=== PATIENT | male | born 1965 | race Caucasian/White ===

== ENCOUNTER 2017-03-15 00:07 | Inpatient (IN) | payer MEDICAID ==
[2017-03-15] MEDS ORDERED: ONDANSETRON 4 MG/2 ML VIAL ONE (00:18)
[2017-03-15] MEDS ORDERED: NS 2,000 ML IV ONE ×2 (00:21→00:55)
--- NOTE | 2017-03-15 00:31 | CPEKG ---
Heart Rate: 73 RR Interval: 822 P-R Interval: 164 QRSD Interval: 116 QT Interval: 488 QTC Interval: 538 P Whitfield: 62 QRS Whitfield: 65 T Wave Whitfield: 65 EKG Severity - ABNORMAL ECG - EKG Impression: SINUS RHYTHM EKG Impression: NONSPECIFIC INTRAVENTRICULAR CONDUCTION DELAY Electronically Signed By: Gurdeep Willson 15-Mar-2017 06:59:07
[2017-03-15 00:34] LABS: APTT 31.4 SEC (23.0-38.0); INR 1.42 (0.83-1.16); PROTIME(PATIENT) 17.5 SEC (12.0-15.0)
[2017-03-15] MEDS ORDERED: INSULIN REGULAR HUMAN 100 UNIT, COSIGN. REQUIRED 1 EA in NS 100 ML IV ONE (00:35)
[2017-03-15 00:44] LABS: ADD DIFF? YES; ADD MORPH? NO; ADD SCAN? NO; ATYPICAL LYMPHOCYTE FLAG 10 (0-99); FRAGMENT RBC FLAG 0 (0-99); HEMATOCRIT 39.8 % (40.0-51.0); HEMOGLOBIN 14.5 g/dL (13.7-17.5); LEFT SHIFT FLG 50 (0-99); LIPEMIA HEMOLYSIS FLAG 90 (0-99); MEAN CELL HEMOGLOBIN 31.9 pg (27.9-34.1); MEAN CELL HEMOGLOBIN CONCENTR. 36.4 g/dL (32.4-36.7); MEAN CELL VOLUME 87.5 fL (81.5-99.8); PLATELET CLUMPS FLAG 10 (0-99); PLATELET COUNT 257 10^3/uL (150-400); RED BLOOD CELL COUNT 4.55 10^6/uL (4.40-6.38); RED CELL DISTRIBUTION WIDTH 12.2 % (11.5-15.2)
[2017-03-15 00:47] LABS: COLOR YELLOW; LEUKOCYTE ESTERASE,URINE NEGATIVE (NEGATIVE); NITRITE,URINE NEGATIVE (NEGATIVE)
[2017-03-15 00:55] LABS: BACTERIA TRACE /hpf (NONE SEEN); MUCUS TRACE /lpf (NONE-1+)
--- NOTE | 2017-03-15 00:56 | EDPHY ---
H & P Stated Complaint: found down Time Seen by Provider: 03/15/17 00:46 HPI/ROS: Chief Complaint: Altered mental status, found down HPI: 51-year-old male found down in his residence by roommate. Patient states that he has had "stomach flu "for the last week or 2. Seven abdominal pain is some nausea and vomiting. Per EMS report roommate came home and found him lying on the floor neck at 5 o'clock this evening. They left and came back later this evening and found to be in the same position. On EMS arrival patient was awake and maintaining his airway and answering some questions but not able to provide much history. Blood pressure 76 systolic per EMS. Patient denies medical history but is confused and unable to provide adequate information. ROS: 10 point Review of Systems is negative except as noted in the HPI. PMH: Unknown Social History: Unknown Family History: Unknown Physical Exam: Gen: Awake, confused HEENT: Nose: no rhinorrhea Eyes: PERRLA, EOMI Mouth: Extremely dry oral mucosa , dry blood around his lips, no active bleeding, a dentate Neck: Supple, no JVD Chest: nontender, lungs clear to auscultation Heart: S1, S2 normal, no murmur, bradycardic Abd: Soft, non-tender, no guarding Ext: no edema, non-tender Skin: no rash Neuro: CN II-XII intact, Sensation grossly intact, Strength 5/5 in bilateral upper and lower extremities - Medical/Surgical History Other PMH: unk - Social History Smoking Status: Unknown if ever smoked Constitutional: Initial Vital Signs Temperature (C) 31.7 C L 03/15/17 00:07 Heart Rate 47 L 03/15/17 00:07 Respiratory Rate 24 H 03/15/17 00:07 Blood Pressure 71/30 L 03/15/17 00:07 O2 Sat (%) 99 03/15/17 00:07 O2 Delivery Mode Nasal Cannula O2 (L/minute) 4 Allergies/Adverse Reactions: No Known Allergies Allergy (Unverified 03/15/17 00:19) Home Medications: Medication Instructions Recorded Unobtainable 03/15/17 Medical Decision Making Procedures: Procedure: Ultrasound guidance: Using the linear probe covered in a sterile sheath, a short axis of the vein was obtained. The vein was completely compressible and was identified as separate from the adjacent non-compressible arterial structure. Under real-time guidance, the introducer needle was observed up to the vein, and then punctured it. These images were saved on the database. Central line placement: The indication for the procedure was HH and K with profound dehydration and poor IV access. After verbal informed consent from patient; the risks were explained including bleeding, infection, and collapsed lung. Maximal sterile barrier technique was uses including cap, gown, sterile gloves, large sheet, hand washing and chlorhexidine prep. The area anesthetized with 1% lidocaine. The right internal jugular was punctured with a 19 gauge finder needle, then a wire introducer was placed, a 7 Dutch triple- lumen catheter was placed using Seldinger technique. There were no complications. Blood return low pressure, dark blood. The patient tolerated procedure well. CXR results: Good placement as interpreted by myself. Radiologist interpretation is pending. The procedure was performed by myself. Indication for the procedure was hypoxemia altered mental status. The patient was preoxygenated with 100% oxygen by face mask. The patient was sedated with etomidate, 20 mg and paralyzed with vecuronium, 100 mg. The patient was orally endotracheally intubated under direct visualization with a 8.0 ETT. Tracheal intubation was confirmed with misting on the tube; breath sounds were auscultated equally bilaterally; appropriate color change with [place] CO2 detector, capnography waveform is appropriate, oxygen saturation after procedure is 100%. Chest X-ray shows ETT in good position. The procedure was performed by myself. ED Course/Re-evaluation: 51-year-old male found down hypotensive possibly septic. Sepsis pathway initiated. Patient initially bradycardic, hypotensive. I-STAT shows blood sugar greater than 700, sodium 106 with correction is 116, hyperkalemia. Patient has very poor IV access will continue to need aggressive fluid hydration. I placed a central line. Patient's Re receiving IV fluids. He remains hypotensive in the 70s. No indication for pressors at this time given his profound dehydration he continues to need aggressive hydration. Of initiated in insulin drip at 9 U an hour. I have discussed with , hospitalist. She will admit to her service. I have also paged Nephrology given his acute kidney injury. 0105 Dr Finn is at the bedside. 0145 patient is dropping his oxygen saturations. He is now 96% on 15 liters/ minute. I have discussed with the hospitalist and we agreed that intubation is appropriate. During intubation. Did drop his blood pressure to 55 systolic. This improved with 100 mcg of stress dosed epinephrine push. Critical Care Time: I spent a total of 50 minutes of critical care time in obtaining history, performing a physical exam, bedside monitoring of interventions, collecting and interpreting tests and discussion with consultants but not including time spent performing procedures. - Data Points Laboratory Results: Laboratory Results 03/15/17 00:15 03/15/17 00:15 03/15/17 03/15/17 03/15/17 00:55 00:15 00:15 WBC RBC Hgb POC Hgb Hct POC Hct MCV MCH MCHC RDW Plt Count MPV Neut % (Auto) Lymph % (Auto) [place] % (Auto) Eos % (Auto) Baso % (Auto) Nucleat RBC Rel Count Absolute Neuts (auto) Absolute Lymphs (auto) Absolute Monos (auto) Absolute Eos (auto) Absolute Basos (auto) Absolute Nucleated RBC Immature Gran % Seg Neutrophils % Band Neutrophils % Lymphocytes % Monocytes % Metamyelocytes % Immature Gran # Absolute Seg Neuts Absolute Band Neuts Absolute Lymphocytes Absolute Monocytes Absolute Metamyelocyte RBC/WBC/PLT Morphology Platelet Estimate PT 17.5 SEC H SEC (12.0-15.0) INR 1.42 H (0.83-1.16) APTT 31.4 SEC SEC (23.0-38.0) Puncture Site NONE GIVEN Patient Temperature 31.7 DEGREES DEGREES pCO2 15 mmHg L* mmHg (34-38) pO2 93 mmHg H mmHg (65-75) Total CO2 4 mEq/L L* mEq/L (23-27) ABG pH 6.92 L* (7.35-7.45) ABG PO2/FiO2 Ratio 3100 RATIO RATIO ABG HCO3 3 mEq/L L mEq/L (22-26) ABG O2 Saturation 95 % % (92-95) ABG Base Excess -29.9 mEq/L L mEq/L (-2.5-2.5) ABG Lactic Acid 1.9 mmol/L H mmol/L (0.5-1.6) VBG Lactic Acid 2.7 mmol/L H mmol/L (0.7-2.1) O2 Concentration % 3 % % (0-100) POC Sodium Sodium POC Potassium Potassium POC Chloride Chloride Carbon Dioxide Anion Gap POC BUN BUN Creatinine POC Creatinine Estimated GFR Glucose POC Glucose Calcium Total Bilirubin Conjugated Bilirubin Unconjugated Bilirubin AST ALT Alkaline Phosphatase Total Protein Albumin Lipase Urine Color Urine Appearance Urine pH Ur Specific [place] Urine Protein Urine Ketones Urine Blood Urine Nitrate Urine Bilirubin Urine Urobilinogen Ur Leukocyte Esterase Urine RBC Urine WBC Ur Epithelial Cells Urine Bacteria Urine Mucus Urine Glucose Urine Opiates Screen Urine Barbiturates Ur Phencyclidine Scrn Ur Amphetamine Screen U Benzodiazepines Scrn Urine Cocaine Screen U Marijuana (THC) Screen Ethyl Alcohol 03/15/17 03/15/17 03/15/17 00:15 00:15 00:15 WBC 16.30 10^3/uL H 10^3/uL (3.80-9.50) RBC 4.55 10^6/uL 10^6/uL (4.40-6.38) Hgb 14.5 g/dL g/dL (13.7-17.5) POC Hgb Hct 39.8 % L % (40.0-51.0) POC Hct MCV 87.5 fL fL (81.5-99.8) MCH 31.9 pg pg (27.9-34.1) MCHC 36.4 g/dL g/dL (32.4-36.7) RDW 12.2 % % (11.5-15.2) Plt Count 257 10^3/uL 10^3/uL (150-400) MPV 11.0 fL fL (8.7-11.7) Neut % (Auto) Not Reported Lymph % (Auto) Not Reported [place] % (Auto) Not Reported Eos % (Auto) Not Reported Baso % (Auto) Not Reported Nucleat RBC Rel Count 0.0 % % (0.0-0.2) Absolute Neuts (auto) Not Reported Absolute Lymphs (auto) Not Reported Absolute Monos (auto) Not Reported Absolute Eos (auto) Not Reported Absolute Basos (auto) Not Reported Absolute Nucleated RBC 0.00 10^3/uL 10^3/uL (0-0.01) Immature Gran % Not Reported Seg Neutrophils % 56 % % Band Neutrophils % 17 % % Lymphocytes % 17 % % Monocytes % 8 % % Metamyelocytes % 2 % % Immature Gran # Not Reported Absolute Seg Neuts 9.13 10^/uL H 10^/uL (1.70-6.50) Absolute Band Neuts 2.77 10^3/uL H 10^3/uL (0.00-0.70) Absolute Lymphocytes 2.77 10^3/uL 10^3/uL (1.00-3.00) Absolute Monocytes 1.30 10^3/uL H 10^3/uL (0.30-0.80) Absolute Metamyelocyte 0.33 10^3/mL H 10^3/mL (0.00-0.00) RBC/WBC/PLT Morphology NORMAL (NORMAL) Platelet Estimate ADEQUATE (ADEQ) PT INR APTT Puncture Site Patient Temperature pCO2 pO2 Total CO2 ABG pH ABG PO2/FiO2 Ratio ABG HCO3 ABG O2 Saturation ABG Base Excess ABG Lactic Acid VBG Lactic Acid O2 Concentration % POC Sodium Sodium 109 mEq/L L* mEq/L (134-144) POC Potassium Potassium 7.0 mEq/L H* mEq/L (3.5-5.2) POC Chloride Chloride 71 mEq/L L mEq/L (97-110) Carbon Dioxide < 5 mEq/l L* mEq/l (22-31) Anion Gap TNP POC BUN BUN 78 mg/dL H mg/dL (7-23) Creatinine 4.0 mg/dL H mg/dL (0.7-1.3) POC Creatinine Estimated GFR 16 Glucose 1053 mg/dL H* mg/dL (70-100) POC Glucose Calcium 7.5 mg/dL L mg/dL (8.5-10.4) Total Bilirubin 0.4 mg/dL mg/dL (0.1-1.4) Conjugated Bilirubin 0.3 mg/dL mg/dL (0.0-0.5) Unconjugated Bilirubin 0.1 mg/dL mg/dL (0.0-1.1) AST 246 IU/L H IU/L (17-59) ALT 80 IU/L H IU/L (21-72) Alkaline Phosphatase 110 IU/L IU/L (38-126) Total Protein 5.5 g/dL L g/dL (6.3-8.2) Albumin 3.6 g/dL g/dL (3.5-5.0) Lipase 17482 IU/L H IU/L (23-300) Urine Color YELLOW Urine Appearance HAZY Urine pH 5.0 (5.0-7.5) Ur Specific [place] 1.016 (1.002-1.030) Urine Protein 1+ H (NEGATIVE) Urine Ketones 1+ H (NEGATIVE) Urine Blood 3+ H (NEGATIVE) Urine Nitrate NEGATIVE (NEGATIVE) Urine Bilirubin NEGATIVE (NEGATIVE) Urine Urobilinogen NEGATIVE EU EU (0.2-1.0) Ur Leukocyte Esterase NEGATIVE (NEGATIVE) Urine RBC 1-3 /hpf /hpf (0-3) Urine WBC 1-3 /hpf /hpf (0-3) Ur Epithelial Cells TRACE /lpf /lpf (NONE-1+) Urine Bacteria TRACE /hpf H /hpf (NONE SEEN) Urine Mucus TRACE /lpf /lpf (NONE-1+) Urine Glucose 3+ H (NEGATIVE) Urine Opiates Screen NEGATIVE (NEGATIVE) Urine Barbiturates NEGATIVE (NEGATIVE) Ur Phencyclidine Scrn NEGATIVE (NEGATIVE) Ur Amphetamine Screen NEGATIVE (NEGATIVE) U Benzodiazepines Scrn NEGATIVE (NEGATIVE) Urine Cocaine Screen NEGATIVE (NEGATIVE) U Marijuana (THC) Screen NEGATIVE (NEGATIVE) Ethyl Alcohol < 10 mg/dL mg/dL (0-10) 03/15/17 00:11 WBC RBC Hgb POC Hgb 15.0 gm/dL gm/dL (13.7-17.5) Hct POC Hct 44 % % (40-51) MCV MCH MCHC RDW Plt Count MPV Neut % (Auto) Lymph % (Auto) [place] % (Auto) Eos % (Auto) Baso % (Auto) Nucleat RBC Rel Count Absolute Neuts (auto) Absolute Lymphs (auto) Absolute Monos (auto) Absolute Eos (auto) Absolute Basos (auto) Absolute Nucleated RBC Immature Gran % Seg Neutrophils % Band Neutrophils % Lymphocytes % Monocytes % Metamyelocytes % Immature Gran # Absolute Seg Neuts Absolute Band Neuts Absolute Lymphocytes Absolute Monocytes Absolute Metamyelocyte RBC/WBC/PLT Morphology Platelet Estimate PT INR APTT Puncture Site Patient Temperature pCO2 pO2 Total CO2 ABG pH ABG PO2/FiO2 Ratio ABG HCO3 ABG O2 Saturation ABG Base Excess ABG Lactic Acid VBG Lactic Acid O2 Concentration % POC Sodium 106 mEq/L L* mEq/L (134-144) Sodium POC Potassium 6.7 mEq/L H* mEq/L (3.3-5.0) Potassium POC Chloride 79 mEq/L L mEq/L (97-110) Chloride Carbon Dioxide Anion Gap POC BUN 108 mg/dL H* mg/dL (7-23) BUN Creatinine POC Creatinine 4.4 mg/dL H mg/dL (0.7-1.3) Estimated GFR Glucose POC Glucose > 700 mg/dL H* mg/dL (70-100) Calcium Total Bilirubin Conjugated Bilirubin Unconjugated Bilirubin AST ALT Alkaline Phosphatase Total Protein Albumin Lipase Urine Color Urine Appearance Urine pH Ur Specific [place] Urine Protein Urine Ketones Urine Blood Urine Nitrate Urine Bilirubin Urine Urobilinogen Ur Leukocyte Esterase Urine RBC Urine WBC Ur Epithelial Cells Urine Bacteria Urine Mucus Urine Glucose Urine Opiates Screen Urine Barbiturates Ur Phencyclidine Scrn Ur Amphetamine Screen U Benzodiazepines Scrn Urine Cocaine Screen U Marijuana (THC) Screen Ethyl Alcohol Medications Given: Discontinued Medications Etomidate (Etomidate) 20 mg IVP ONCE ONE Stop: 03/15/17 01:48 Last Admin: 03/15/17 01:45 Dose: 20 mg Sodium Chloride (Ns) 2,000 mls @ 0 mls/hr IV ONCE ONE; Wide Open PRN Reason: Protocol Stop: 03/15/17 00:22 Last Admin: 03/15/17 00:26 Dose: 2,000 mls Insulin Human Regular 100 unit / Miscellaneous Medication 1 ea/ Sodium Chloride 101 mls @ 0 mls/hr IV EDNOW ONE; Titrate PRN Reason: Protocol Stop: 03/15/17 00:36 Last Admin: 03/15/17 00:52 Dose: 101 mls Sodium Chloride (Ns) 2,000 mls @ 0 mls/hr IV ONCE ONE; Wide Open PRN Reason: Protocol Stop: 03/15/17 00:56 Last Admin: 03/15/17 00:57 Dose: 2,000 mls Rocuronium [place] (Zemuron) 100 mg IVP EDNOW ONE Stop: 03/15/17 01:48 Last Admin: 03/15/17 01:47 Dose: 100 mg Point of Care Test Results: 03/15/17 00:11 POC Sodium 106 L* POC Potassium 6.7 H* POC Chloride 79 L POC BUN 108 H* POC Creatinine 4.4 H POC Glucose > 700 H* Departure - Departure
[2017-03-15 01:02] LABS: ALANINE AMINOTRANSFERASE 80 IU/L (21-72); ALBUMIN 3.6 g/dL (3.5-5.0); ALKALINE PHOSPHATASE 110 IU/L (38-126); ASPARTATE AMINOTRANSFERASE 246 IU/L (17-59); BILIRUBIN,TOTAL 0.4 mg/dL (0.1-1.4); BILIRUBIN-CONJUGATED 0.3 mg/dL (0.0-0.5); BILIRUBIN-UNCONJUGATED 0.1 mg/dL (0.0-1.1); CALCIUM 7.5 mg/dL (8.5-10.4); CHLORIDE 71 mEq/L (97-110); ETHANOL SERUM < 10 mg/dL (0-10); TOTAL PROTEIN 5.5 g/dL (6.3-8.2)
[2017-03-15 01:06] LABS: BASE EXCESS -29.9 mEq/L (-2.5-2.5); BICARBONATE 3 mEq/L (22-26); MEASURED OXYGEN SATURATION 95 % (92-95); PO2 93 mmHg (65-75)
[2017-03-15 01:15] LABS: PCO2 15 mmHg (34-38); TCO2 4 mEq/L (23-27)
[2017-03-15 01:16] LABS: O2 CONCENTRATIION 3 % (0-100); P/F RATIO 3100 RATIO
[2017-03-15 01:20] LABS: GLOMERULAR FILTRATION RATE 16
[2017-03-15 01:24] LABS: PLATELET ESTIMATE ADEQUATE (ADEQ)
[2017-03-15] MEDS ORDERED: EPINEPHrine 1 MG/10 ML SYR IVP ONE ×2 (01:32→02:38)
[2017-03-15 01:33] LABS: SODIUM 109 mEq/L (134-144)
[2017-03-15 01:34] LABS: CARBON DIOXIDE < 5 mEq/l (22-31)
[2017-03-15] MEDS ORDERED: ACETAMINOPHEN 650 MG SUPP PR PRN (01:34)
[2017-03-15] MEDS ORDERED: ONDANSETRON 4 MG/2 ML VIAL IVP PRN (01:34)
[2017-03-15 01:35] LABS: GLUCOSE 1053 mg/dL (70-100)
[2017-03-15] MEDS ORDERED: D5W 1,000 ML IV SCH (01:45)
[2017-03-15] MEDS ORDERED: ROCURONIUM 100 MG/10 ML VIAL IVP ONE (01:47)
[2017-03-15] MEDS ORDERED: ETOMIDATE 40 MG/20 ML INJ IVP ONE (01:47)
--- NOTE | 2017-03-15 02:00 | PDGENHP ---
History and Physical - Chief Complaint found down on floor - History of Present Illness Source - patient is able to provide a limited amount of history. He presented altered but awake and talking. majority of history obtained from discussion with ED provider and RN. HPI - Pleasant 51 yo M with reported pmhx significant for chronic low back pain who presents to the ED after patient roommate found the patient laying on the floor for several hours. Patient apparently had complained of a "stomach bug" for the last several days. He denies fevers/chills, nausea/vomiting/diarrhea, cough/rhinorrhea. Patient states he has not had anything to eat or drink for a few days and feels very dry. Patient apparently had been laying on the floor when his roommate left and was in the same position 5 hours later upon return. Roommate by report from EMS was not familiar with patient history. Patient without known pmhx of diabetes "but I thought I might have." he does not have primary care. Patient provided names of parents Truong and Ramos Jamil who live in [place], [place]. patient was able to provide number [phone] which was disconnected. additional numbers located [phone] with voice message identifying names Edward /ramos left message with ICU number and request to call back only. additional number [phone] In the ED, patient was noted to be hypothermic and hypotensive with SBP 70s. He was still awake and maintaining airway. a central line was placed and he was aggressively being fluid resuscitated. ABG significant for notable acidosis pH 6.92, HCO3 3, Na 106 corrects to 120 for BS of >700. Patient was able to verbalize desire to be a FULL COR and allow to reach out parents. O2 sats declined with need for 15 lpm via NR and it was felt patient required intubation to protect airway. Patient was amenable, SBP declined to 50s with sedation/intubation and required bolus epinephrine. History Information - Allergies/Home Medication List Allergies/Adverse Reactions: No Known Allergies Allergy (Unverified 03/15/17 00:19) Home Medications: Unobtainable 03/15/17 [Last Taken Unknown] I have personally reviewed and updated: medical history, social history, surgical history Past Medical History: limited 2/2 patient current encephalopathy. PMHx - chronic back pain. denies previous diagnosis of DM II, HTN. PSHx - patient denies. FHx - unable to obtain 2/2 confusion. SHx - denies drugs or daily etoh. pt reports last alcohol intake 10 days ago. patient does chew tobacco. COR - FULL. desires parents to act as proxy Truong/Ramos Jamil. - Social History Smoking Status: Unknown if ever smoked Tobacco Use: Chew Alcohol Use: Occasionally Drug Use: None Review of Systems Review of Systems: ROS: 10pt was reviewed & negative except for what was stated in HPI & below Physical Exam Physical Exam: Selected Entries 03/15/17 00:07 Blood Pressure Automatic Method Heart Rate 47 L Respiratory 24 H Rate O2 Sat (%) 99 Temperature (C) 31.7 C L Blood Pressure 71/30 L Mean Arterial 43 L Pressure (MAP) O2 (L/minute) 4 O2 Delivery Nasal Cannula Mode Temperature Urinary Source Catheter Temp Pulse Resp BP Pulse Ox 32.4 C L 75 24 H 87/37 L 100 03/15/17 01:39 03/15/17 01:39 03/15/17 01:39 03/15/17 01:39 03/15/17 01:39 Constitutional: no apparent distress, obese, uncomfortable Eyes: anicteric sclera, scleral injection (minimal no drainage), other ( voluntary eye movements intact. pupils equal round decreased reactivity to light bilaterally but symmetric. ) Ears, Nose, Mouth, Throat: poor dentition, dry mucous membranes Cardiovascular: regular rate and rhythym, no murmur, rub, or gallop, bradycardia , other (distant heart sounds. ), No systolic murmur, No edema Peripheral Pulses: 1+: dorsalis-pedis (R), dorsalis-pedis (L) Gastrointestinal: soft, non-tender abdomen, other (obese, NTTP. hypoactive BS.) , No tenderness Genitourinary: no bladder tenderness, benjamin in urethra Skin: warm, normal color, no rashes or abrasions Musculoskeletal: generalized weakness, other (moves all extremities. generalized weakness) Neurologic: No AAOx3 (oriented to self only. ) Psychiatric: encephalopathic, anxious, agitated Lab Data & Imaging Review 03/15/17 00:15 03/15/17 00:15 WBC 16.30 10^3/uL (3.80-9.50) H 03/15/17 00:15 RBC 4.55 10^6/uL (4.40-6.38) 03/15/17 00:15 Hgb 14.5 g/dL (13.7-17.5) 03/15/17 00:15 POC Hgb 15.0 gm/dL (13.7-17.5) 03/15/17 00:11 Hct 39.8 % (40.0-51.0) L 03/15/17 00:15 POC Hct 44 % (40-51) 03/15/17 00:11 MCV 87.5 fL (81.5-99.8) 03/15/17 00:15 MCH 31.9 pg (27.9-34.1) 03/15/17 00:15 MCHC 36.4 g/dL (32.4-36.7) 03/15/17 00:15 RDW 12.2 % (11.5-15.2) 03/15/17 00:15 Plt Count 257 10^3/uL (150-400) 03/15/17 00:15 MPV 11.0 fL (8.7-11.7) 03/15/17 00:15 Neut % (Auto) Not Reported 03/15/17 00:15 Lymph % (Auto) Not Reported 03/15/17 00:15 [place] % (Auto) Not Reported 03/15/17 00:15 Eos % (Auto) Not Reported 03/15/17 00:15 Baso % (Auto) Not Reported 03/15/17 00:15 Nucleat RBC Rel Count 0.0 % (0.0-0.2) 03/15/17 00:15 Absolute Neuts (auto) Not Reported 03/15/17 00:15 Absolute Lymphs (auto) Not Reported 03/15/17 00:15 Absolute Monos (auto) Not Reported 03/15/17 00:15 Absolute Eos (auto) Not Reported 03/15/17 00:15 Absolute Basos (auto) Not Reported 03/15/17 00:15 Absolute Nucleated RBC 0.00 10^3/uL (0-0.01) 03/15/17 00:15 Immature Gran % Not Reported 03/15/17 00:15 Seg Neutrophils % 56 % 03/15/17 00:15 Band Neutrophils % 17 % 03/15/17 00:15 Lymphocytes % 17 % 03/15/17 00:15 Monocytes % 8 % 03/15/17 00:15 Metamyelocytes % 2 % 03/15/17 00:15 Immature Gran # Not Reported 03/15/17 00:15 Absolute Seg Neuts 9.13 10^/uL (1.70-6.50) H 03/15/17 00:15 Absolute Band Neuts 2.77 10^3/uL (0.00-0.70) H 03/15/17 00:15 Absolute Lymphocytes 2.77 10^3/uL (1.00-3.00) 03/15/17 00:15 Absolute Monocytes 1.30 10^3/uL (0.30-0.80) H 03/15/17 00:15 Absolute Metamyelocyte 0.33 10^3/mL (0.00-0.00) H 03/15/17 00:15 RBC/WBC/PLT Morphology NORMAL (NORMAL) 03/15/17 00:15 Platelet Estimate ADEQUATE (ADEQ) 03/15/17 00:15 PT 17.5 SEC (12.0-15.0) H 03/15/17 00:15 INR 1.42 (0.83-1.16) H 03/15/17 00:15 APTT 31.4 SEC (23.0-38.0) 03/15/17 00:15 Puncture Site NONE GIVEN 03/15/17 00:55 Patient Temperature 31.7 DEGREES 03/15/17 00:55 pCO2 15 mmHg (34-38) L* 03/15/17 00:55 pO2 93 mmHg (65-75) H 03/15/17 00:55 Total CO2 4 mEq/L (23-27) L* 03/15/17 00:55 ABG pH 6.92 (7.35-7.45) L* 03/15/17 00:55 ABG PO2/FiO2 Ratio 3100 RATIO 03/15/17 00:55 ABG HCO3 3 mEq/L (22-26) L 03/15/17 00:55 ABG O2 Saturation 95 % (92-95) 03/15/17 00:55 ABG Base Excess -29.9 mEq/L (-2.5-2.5) L 03/15/17 00:55 ABG Lactic Acid 1.9 mmol/L (0.5-1.6) H 03/15/17 00:55 VBG Lactic Acid 2.7 mmol/L (0.7-2.1) H 03/15/17 00:15 O2 Concentration % 3 % (0-100) 03/15/17 00:55 POC Sodium 106 mEq/L (134-144) L* 03/15/17 00:11 Sodium 109 mEq/L (134-144) L* 03/15/17 00:15 POC Potassium 6.7 mEq/L (3.3-5.0) H* 03/15/17 00:11 Potassium 7.0 mEq/L (3.5-5.2) H* 03/15/17 00:15 POC Chloride 79 mEq/L (97-110) L 03/15/17 00:11 Chloride 71 mEq/L (97-110) L 03/15/17 00:15 Carbon Dioxide < 5 mEq/l (22-31) L* 03/15/17 00:15 Anion Gap TNP 03/15/17 00:15 POC BUN 108 mg/dL (7-23) H* 03/15/17 00:11 BUN 78 mg/dL (7-23) H 03/15/17 00:15 Creatinine 4.0 mg/dL (0.7-1.3) H 03/15/17 00:15 POC Creatinine 4.4 mg/dL (0.7-1.3) H 03/15/17 00:11 Estimated GFR 16 03/15/17 00:15 Glucose 1053 mg/dL (70-100) H* 03/15/17 00:15 POC Glucose > 700 mg/dL (70-100) H* 03/15/17 00:11 Calcium 7.5 mg/dL (8.5-10.4) L 03/15/17 00:15 Total Bilirubin 0.4 mg/dL (0.1-1.4) 03/15/17 00:15 Conjugated Bilirubin 0.3 mg/dL (0.0-0.5) 03/15/17 00:15 Unconjugated Bilirubin 0.1 mg/dL (0.0-1.1) 03/15/17 00:15 AST 246 IU/L (17-59) H 03/15/17 00:15 ALT 80 IU/L (21-72) H 03/15/17 00:15 Alkaline Phosphatase 110 IU/L (38-126) 03/15/17 00:15 Total Protein 5.5 g/dL (6.3-8.2) L 03/15/17 00:15 Albumin 3.6 g/dL (3.5-5.0) 03/15/17 00:15 Lipase 14292 IU/L (23-300) H 03/15/17 00:15 Urine Color YELLOW 03/15/17 00:15 Urine Appearance HAZY 03/15/17 00:15 Urine pH 5.0 (5.0-7.5) 03/15/17 00:15 Ur Specific [place] 1.016 (1.002-1.030) 03/15/17 00:15 Urine Protein 1+ (NEGATIVE) H 03/15/17 00:15 Urine Ketones 1+ (NEGATIVE) H 03/15/17 00:15 Urine Blood 3+ (NEGATIVE) H 03/15/17 00:15 Urine Nitrate NEGATIVE (NEGATIVE) 03/15/17 00:15 Urine Bilirubin NEGATIVE (NEGATIVE) 03/15/17 00:15 Urine Urobilinogen NEGATIVE EU (0.2-1.0) 03/15/17 00:15 Ur Leukocyte Esterase NEGATIVE (NEGATIVE) 03/15/17 00:15 Urine RBC 1-3 /hpf (0-3) 03/15/17 00:15 Urine WBC 1-3 /hpf (0-3) 03/15/17 00:15 Ur Epithelial Cells TRACE /lpf (NONE-1+) 03/15/17 00:15 Urine Bacteria TRACE /hpf (NONE SEEN) H 03/15/17 00:15 Urine Mucus TRACE /lpf (NONE-1+) 03/15/17 00:15 Urine Glucose 3+ (NEGATIVE) H 03/15/17 00:15 Urine Opiates Screen NEGATIVE (NEGATIVE) 03/15/17 00:15 Urine Barbiturates NEGATIVE (NEGATIVE) 03/15/17 00:15 Ur Phencyclidine Scrn NEGATIVE (NEGATIVE) 03/15/17 00:15 Ur Amphetamine Screen NEGATIVE (NEGATIVE) 03/15/17 00:15 U Benzodiazepines Scrn NEGATIVE (NEGATIVE) 03/15/17 00:15 Urine Cocaine Screen NEGATIVE (NEGATIVE) 03/15/17 00:15 U Marijuana (THC) Screen NEGATIVE (NEGATIVE) 03/15/17 00:15 Ethyl Alcohol < 10 mg/dL (0-10) 03/15/17 00:15 Imaging Review: CXR reviewed myself, report pending - Visualized and Interpreted Chest x-ray results: Yes Visualized and Interpreted EKG results: Yes EKG additional interpertation: NSR 70s. IVCD. no acute ST changes. QT 488 Assessment & Plan Assessment: 51 yo M with no significant pmhx who presents to the ED found down and confused at home with complaints of feeing unwell for the last several days. 1. HHS - patient without previous diagnosis of DM II. BS >1000 and started on insulin gtt. aggressive IVF hydration. pt received just under 5 liters before transfer to ICU. q1 hr BS. serial BMPs q2 hours. dark output from NGT and elevated lipase >15K. will check abdominal US. 2. shock - hypovolemic, less likely septic without pt c/o fever/chills/cough/ diarrhea/dysuria or other symptoms. will check CVP on unit s/p 5 liters. patient is acidotic, hypothermic. bicarb bolus vs gtt if no improvement in BPs. levophed if CVP up to 8 or greater. 3. acute hypoxic respiratory failure - patient with increasing hypoxia and respiratory distress despite NR. Patient intubated in the ED. 4. hypothermia in setting of severe acidosis. temperature slowly improving. continue with bear hugger for thermoregulation. correction as noted above. 5. SIRS - pt with criteria of leukocytosis, encephalopathy, hypotension, hypothermia. no evidence of source at this time with unremarkable UA, CXR. pt denies any GI sx. output on NGT dark brown abdomen obese but soft and without TTP. consider further imaging once stabilized. blood cultures pending. lactate elevated but likely in setting of severe dehydration. serial lactates. hold off antibiotics at this time. 6. hyponatremia - corrects to 120 for BS. will monitor with q2 hour bmps. Patient requires aggressive IVF hydration. concern that patient symptoms are not acute so unsure of chronicity of hyponatremia. Discussed with nephrology from the ED. amenable to a corrected sodium to 128-130. will need urine/serum osmol once patient urine output improves. 7. hyperkalemia - serial BMPs. anticipate improvement with insulin gtt and IVF. 8. arf - likely pre-renal in setting of hypovolemia and shock. continue with IVF. nephrology consulted. no acute need for dialysis at this time. 9. lactic acidosis - serial lactates. IVF as above. 10. hypochloridemia - in setting of hyponatremia, dehydration. serial BMPs ordered. 11. hypocalcemia - calcium chloride x 1. serial bmps. 12. transaminitis - likely 2/2 shock liver in setting of severe hypotension. bilirubin WNL. abdominal US ordered as above. Patient denied any daily etoh intake or abuse. alcohol level negative. 13. dehydration - IVF as above. 14. obesity 15. tobacco dependence - pt chews. FEN - s/p 5 liters IVF. continue NS 150 mls/hr. electrolytes as above. NPO. NGT in place. PPx - SCDs. lovenox. COR - FULL. patient desires father Truong Jamil to act as proxy if needed. see HPI for contact numbers. Dispo - Admit to Inpatient status. Patient is critically ill, intubated and in shock. He requires ICU level care. Anticipate > 2 midnight stay. Consults - nephrology call from ED, pulm crit care.
[2017-03-15] MEDS ORDERED: SODIUM BICARBONATE 50 MEQ/50 ML SYR IVP ONE ×2 (02:31→04:38)
[2017-03-15] MEDS ORDERED: SODIUM BICARBONATE 50 MEQ/50 ML SYR ONE ×5 (02:32→16:20)
[2017-03-15] MEDS ORDERED: NOREPINEPHRINE/NS 4 MG/500 ML BAG IV ONE (02:35)
[2017-03-15] MEDS ORDERED: NS 1,000 ML IV ONE (02:38)
[2017-03-15] MEDS ORDERED: CALCIUM CHLORIDE 1 GM/10 ML INJ IV ONE ×2 (02:52→08:54)
[2017-03-15] MEDS ORDERED: NOREPINEPHRINE/NS 500 ML IV SCH (03:00)
[2017-03-15] MEDS: NS 1,000 ML IV SCH ×3 (03:08→22:14)
[2017-03-15 03:12] LABS: ANION GAP 24 mEq/L (8-16); CHLORIDE 89 mEq/L (97-110); POTASSIUM 4.9 mEq/L (3.5-5.2); SODIUM 122 mEq/L (134-144)
[2017-03-15 03:17] LABS: CREATININE 3.3 mg/dL (0.7-1.3); GLOMERULAR FILTRATION RATE 20
[2017-03-15 03:25] LABS: CALCIUM 5.6 mg/dL (8.5-10.4); CARBON DIOXIDE 9 mEq/l (22-31); GLUCOSE 758 mg/dL (70-100)
[2017-03-15] MEDS: VASOPRESSIN/DEXTROSE 250 ML IV SCH ×3 (04:17→14:25)
[2017-03-15 04:26] LABS: ANION GAP 24 mEq/L (8-16); CALCIUM 6.9 mg/dL (8.5-10.4); CHLORIDE 90 mEq/L (97-110); SODIUM 122 mEq/L (134-144)
[2017-03-15 04:32] LABS: CREATININE 3.3 mg/dL (0.7-1.3); GLOMERULAR FILTRATION RATE 20
[2017-03-15 04:34] LABS: ASSIST CONTROL YES; O2 CONCENTRATIION 40 % (0-100); TOTAL RATE 20
[2017-03-15 04:36] LABS: BASE EXCESS -26.9 mEq/L (-2.5-2.5); BICARBONATE 8 mEq/L (22-26); MEASURED OXYGEN SATURATION 91 % (92-95); P/F RATIO 185 RATIO; PCO2 50 mmHg (34-38); PO2 74 mmHg (65-75); TCO2 10 mEq/L (23-27)
[2017-03-15 04:38] LABS: CARBON DIOXIDE 8 mEq/l (22-31); GLUCOSE 696 mg/dL (70-100)
[2017-03-15] MEDS ORDERED: LIDOCAINE 1% 5 ML SDV ONE (05:04)
[2017-03-15] MEDS ORDERED: LIDOCAINE 2% 5 ML SDV ONE (05:05)
[2017-03-15] MEDS: SODIUM BICARBONATE 150 MEQ in WATER FOR INJECTION,STERILE 1,000 ML IV SCH ×3 (05:22→19:43)
[2017-03-15] MEDS: INSULIN REGULAR HUMAN 100 UNIT in NS 100 ML IV SCH ×2 (05:24→12:40)
[2017-03-15] MEDS ORDERED: HEPARIN 50,000 UNIT/10 ML VIAL DIAL ONE (05:30)
[2017-03-15] MEDS ORDERED: PRE-DILUTION FILTER SET 100 ****SEND #2 INITIALLY MISC PRN ×2 (05:30→07:00)
--- NOTE | 2017-03-15 05:51 | PDCONSULT ---
Pastry Chef Note: Chief Complaint: Altered mental status HPI: 51-year-old male found down in his residence by roommate. Reportedly had not been feeling well for a couple of weeks. Also, stated that he may be diabetic however does not have a PCP and has not been on meds. Patient c/o back pain that may be chronic. Unknown NSAID use. Not a regular alcohol or drug user. EMS stated that he was down for 5 hours prior to his roommate ordering. ROS: Unable to obtain PMH: None Surgical History: None Social History: Lives independently with roommate. Occasional ETOH use. Smoking history unknown. Family History: Unknown Objective: Temp Pulse Resp BP Pulse Ox 35.2 C L 100 20 85/38 L 98 03/15/17 05:00 03/15/17 05:00 03/15/17 05:00 03/15/17 05:00 03/15/17 05:00 O2 (L/minute) 4 FIO2 (%) 60 Physical Exam: Gen: Intubated, sedated HEENT: Nose: no rhinorrhea Eyes: PERRLA, EOMI Mouth: Extremely dry oral mucosa , dry blood around his lips Neck: Supple, no JVD Chest: nontender, lungs clear to auscultation Heart: RRR, no rub Abd: Soft, no guarding Ext: no edema, non-tender Skin: no rash Neuro: non-focal Labs: WBC 16.30 10^3/uL (3.80-9.50) H 03/15/17 00:15 RBC 4.55 10^6/uL (4.40-6.38) 03/15/17 00:15 Hgb 14.5 g/dL (13.7-17.5) 03/15/17 00:15 POC Hgb 11.6 gm/dL (13.7-17.5) L 03/15/17 04:17 Hct 39.8 % (40.0-51.0) L 03/15/17 00:15 POC Hct 34 % (40-51) L 03/15/17 04:17 MCV 87.5 fL (81.5-99.8) 03/15/17 00:15 MCH 31.9 pg (27.9-34.1) 03/15/17 00:15 MCHC 36.4 g/dL (32.4-36.7) 03/15/17 00:15 RDW 12.2 % (11.5-15.2) 03/15/17 00:15 Plt Count 257 10^3/uL (150-400) 03/15/17 00:15 MPV 11.0 fL (8.7-11.7) 03/15/17 00:15 Neut % (Auto) Not Reported 03/15/17 00:15 Lymph % (Auto) Not Reported 03/15/17 00:15 Alfalfa % (Auto) Not Reported 03/15/17 00:15 Eos % (Auto) Not Reported 03/15/17 00:15 Baso % (Auto) Not Reported 03/15/17 00:15 Nucleat RBC Rel Count 0.0 % (0.0-0.2) 03/15/17 00:15 Absolute Neuts (auto) Not Reported 03/15/17 00:15 Absolute Lymphs (auto) Not Reported 03/15/17 00:15 Absolute Monos (auto) Not Reported 03/15/17 00:15 Absolute Eos (auto) Not Reported 03/15/17 00:15 Absolute Basos (auto) Not Reported 03/15/17 00:15 Absolute Nucleated RBC 0.00 10^3/uL (0-0.01) 03/15/17 00:15 Immature Gran % Not Reported 03/15/17 00:15 Seg Neutrophils % 56 % 03/15/17 00:15 Band Neutrophils % 17 % 03/15/17 00:15 Lymphocytes % 17 % 03/15/17 00:15 Monocytes % 8 % 03/15/17 00:15 Metamyelocytes % 2 % 03/15/17 00:15 Immature Gran # Not Reported 03/15/17 00:15 Absolute Seg Neuts 9.13 10^/uL (1.70-6.50) H 03/15/17 00:15 Absolute Band Neuts 2.77 10^3/uL (0.00-0.70) H 03/15/17 00:15 Absolute Lymphocytes 2.77 10^3/uL (1.00-3.00) 03/15/17 00:15 Absolute Monocytes 1.30 10^3/uL (0.30-0.80) H 03/15/17 00:15 Absolute Metamyelocyte 0.33 10^3/mL (0.00-0.00) H 03/15/17 00:15 RBC/WBC/PLT Morphology NORMAL (NORMAL) 03/15/17 00:15 Platelet Estimate ADEQUATE (ADEQ) 03/15/17 00:15 PT 17.5 SEC (12.0-15.0) H 03/15/17 00:15 INR 1.42 (0.83-1.16) H 03/15/17 00:15 APTT 31.4 SEC (23.0-38.0) 03/15/17 00:15 Puncture Site RIGHT BRACHIAL 03/15/17 04:23 Patient Temperature 34.7 DEGREES 03/15/17 04:23 pCO2 50 mmHg (34-38) H 03/15/17 04:23 pO2 74 mmHg (65-75) 03/15/17 04:23 Total CO2 10 mEq/L (23-27) L 03/15/17 04:23 ABG pH 6.83 (7.35-7.45) L* 03/15/17 04:23 ABG PO2/FiO2 Ratio 185 RATIO 03/15/17 04:23 ABG HCO3 8 mEq/L (22-26) L 03/15/17 04:23 ABG O2 Saturation 91 % (92-95) L 03/15/17 04:23 ABG Base Excess -26.9 mEq/L (-2.5-2.5) L 03/15/17 04:23 ABG Lactic Acid 1.1 mmol/L (0.5-1.6) D 03/15/17 04:23 VBG Lactic Acid 2.7 mmol/L (0.7-2.1) H 03/15/17 00:15 O2 Concentration % 40 % (0-100) 03/15/17 04:23 Respiration Rate 20 03/15/17 04:23 Set Respiration Rate 20 03/15/17 04:23 Assist Control YES 03/15/17 04:23 Tidal Volume 500 03/15/17 04:23 PEEP 5 03/15/17 04:23 POC Sodium 121 mEq/L (134-144) L 03/15/17 04:17 Sodium 122 mEq/L (134-144) L 03/15/17 04:00 POC Potassium 4.8 mEq/L (3.3-5.0) 12/01/17 04:17 Potassium 5.0 mEq/L (3.5-5.2) 03/15/17 04:00 POC Chloride 93 mEq/L (97-110) L 03/15/17 04:17 Chloride 90 mEq/L (97-110) L 03/15/17 04:00 Carbon Dioxide 8 mEq/l (22-31) L* 03/15/17 04:00 Anion Gap 24 mEq/L (8-16) H 03/15/17 04:00 POC BUN 105 mg/dL (7-23) H* 03/15/17 04:17 BUN 77 mg/dL (7-23) H 03/15/17 04:00 Creatinine 3.3 mg/dL (0.7-1.3) H 03/15/17 04:00 POC Creatinine 3.5 mg/dL (0.7-1.3) H 03/15/17 04:17 Estimated GFR 20 03/15/17 04:00 Glucose 696 mg/dL (70-100) H* 03/15/17 04:00 POC Glucose 668 mg/dL (70-100) H* 03/15/17 04:17 Calcium 6.9 mg/dL (8.5-10.4) L D 03/15/17 04:00 Total Bilirubin 0.4 mg/dL (0.1-1.4) 03/15/17 00:15 Conjugated Bilirubin 0.3 mg/dL (0.0-0.5) 03/15/17 00:15 Unconjugated Bilirubin 0.1 mg/dL (0.0-1.1) 03/15/17 00:15 AST 246 IU/L (17-59) H 03/15/17 00:15 ALT 80 IU/L (21-72) H 03/15/17 00:15 Alkaline Phosphatase 110 IU/L (38-126) 03/15/17 00:15 Total Protein 5.5 g/dL (6.3-8.2) L 03/15/17 00:15 Albumin 3.6 g/dL (3.5-5.0) 03/15/17 00:15 Lipase 86541 IU/L (23-300) H 03/15/17 00:15 Urine Color YELLOW 03/15/17 00:15 Urine Appearance HAZY 03/15/17 00:15 Urine pH 5.0 (5.0-7.5) 03/15/17 00:15 Ur Specific [place] 1.016 (1.002-1.030) 03/15/17 00:15 Urine Protein 1+ (NEGATIVE) H 03/15/17 00:15 Urine Ketones 1+ (NEGATIVE) H 03/15/17 00:15 Urine Blood 3+ (NEGATIVE) H 03/15/17 00:15 Urine Nitrate NEGATIVE (NEGATIVE) 03/15/17 00:15 Urine Bilirubin NEGATIVE (NEGATIVE) 03/15/17 00:15 Urine Urobilinogen NEGATIVE EU (0.2-1.0) 03/15/17 00:15 Ur Leukocyte Esterase NEGATIVE (NEGATIVE) 03/15/17 00:15 Urine RBC 1-3 /hpf (0-3) 03/15/17 00:15 Urine WBC 1-3 /hpf (0-3) 03/15/17 00:15 Ur Epithelial Cells TRACE /lpf (NONE-1+) 03/15/17 00:15 Urine Bacteria TRACE /hpf (NONE SEEN) H 03/15/17 00:15 Urine Mucus TRACE /lpf (NONE-1+) 03/15/17 00:15 Urine Glucose 3+ (NEGATIVE) H 03/15/17 00:15 Urine Opiates Screen NEGATIVE (NEGATIVE) 03/15/17 00:15 Urine Barbiturates NEGATIVE (NEGATIVE) 03/15/17 00:15 Ur Phencyclidine Scrn NEGATIVE (NEGATIVE) 03/15/17 00:15 Ur Amphetamine Screen NEGATIVE (NEGATIVE) 03/15/17 00:15 U Benzodiazepines Scrn NEGATIVE (NEGATIVE) 03/15/17 00:15 Urine Cocaine Screen NEGATIVE (NEGATIVE) 03/15/17 00:15 U Marijuana (THC) Screen NEGATIVE (NEGATIVE) 03/15/17 00:15 Ethyl Alcohol < 10 mg/dL (0-10) 03/15/17 00:15 Imaging: Results reviewed. A/P: The patient is a 51 y/o M with unknown PMH who presented after being found down, hypotensive, with a BS>1000, AGMA, and lipase >15k consistent with possible DKA vs HHS in addition to possible pancreatitis, unclear if one condition could have precipitated the other. Unfortunately, the patient is now maxed on 2 pressors and is too unstable to obtain imaging at this time. AGMA -pH 6.8 with respiratory and metabolic acidosis 2/2 to probable ketosis, renal failure, and hypotension, now intubated -on bicarb gtt, may continue until pH>7 -central line placed, ICU appreciated -will begin CRRT with citrate protocol, see below ISAIAS -Cr 3.5, unknown baseline -CK>15k, may have element of rhabdomyolysis -sending urine studies -renal US once stable -starting CRRT with CVHDF with citrate protocol, obtaining ionized Ca -will need to switch to non-citrate if INR>1.5, monitor this am Hypotension with elevated lipase -lactate <2 -may still need to consider empiric abx and junior-culture per primary team -possible pancreatitis, CT when stable -keep MAP>65 -avoid contrast if possible due to ISAIAS -will run net even Hyperkalemia -on telemetry -calcium gluconate given -will monitor on 4K bath DKA vs HHS -NS x 4L given -insulin gtt per primary team -monitor electrolytes and replete as needed Consult appreciated, will continue to follow. Please call if any questions, #[phone].
[2017-03-15 05:54] LABS: BASE EXCESS -22.8 mEq/L (-2.5-2.5); BICARBONATE 11 mEq/L (22-26); IONIZED CALCIUM 1.13 MMOL/L (1.12-1.30); MEASURED OXYGEN SATURATION 93 % (92-95); PCO2 53 mmHg (34-38); PO2 78 mmHg (65-75); TCO2 13 mEq/L (23-27)
[2017-03-15 05:58] LABS: CK-MB INTERPRETATION NEGATIVE (NEGATIVE)
[2017-03-15 05:58] LABS: ASSIST CONTROL YES; END TIDAL CO2 50; O2 CONCENTRATIION 100 % (0-100); P/F RATIO 78 RATIO
[2017-03-15 05:59] LABS: TOTAL RATE 20
[2017-03-15 06:02] LABS: INR 1.39 (0.83-1.16); PROTIME(PATIENT) 17.2 SEC (12.0-15.0)
[2017-03-15 06:03] LABS: APTT 30.3 SEC (23.0-38.0)
[2017-03-15 06:14] LABS: ALANINE AMINOTRANSFERASE 78 IU/L (21-72); ALBUMIN 2.5 g/dL (3.5-5.0); ALKALINE PHOSPHATASE 110 IU/L (38-126); ANION GAP 24 mEq/L (8-16); ASPARTATE AMINOTRANSFERASE 239 IU/L (17-59); BILIRUBIN,TOTAL 0.4 mg/dL (0.1-1.4); CALCIUM 6.7 mg/dL (8.5-10.4); CHLORIDE 92 mEq/L (97-110); MAGNESIUM 2.7 mg/dL (1.6-2.3); POTASSIUM 4.5 mEq/L (3.5-5.2); SODIUM 125 mEq/L (134-144); TOTAL PROTEIN 4.3 g/dL (6.3-8.2)
[2017-03-15 06:19] LABS: CARBON DIOXIDE 9 mEq/l (22-31); GLUCOSE 587 mg/dL (70-100)
[2017-03-15 06:20] LABS: CREATININE 3.5 mg/dL (0.7-1.3); GLOMERULAR FILTRATION RATE 19
[2017-03-15 06:38] LABS: CK-MB INTERPRETATION NEGATIVE (NEGATIVE)
[2017-03-15] MEDS ORDERED: SODIUM CITRATE 4% DIAL PRN (07:00)
[2017-03-15] MEDS ORDERED: ACCESSORY DRAIN 1 EA BAG***SEND #2 INITIALLY MISC PRN (07:00)
[2017-03-15] MEDS ORDERED: fentanYL/NACL/100 ML BAG IV ONE (07:06)
[2017-03-15 07:23] LABS: ADD DIFF? YES; HEMATOCRIT 30.1 % (40.0-51.0); HEMOGLOBIN 12.1 g/dL (13.7-17.5); MEAN CELL VOLUME 79.6 fL (81.5-99.8); MEAN PLATELET VOLUME 9.7 fL (8.7-11.7); PLATELET COUNT 182 10^3/uL (150-400); RED BLOOD CELL COUNT 3.78 10^6/uL (4.40-6.38); RED CELL DISTRIBUTION WIDTH 11.6 % (11.5-15.2)
[2017-03-15 07:24] LABS: ABSOLUTE IMMATURE GRANULOCYTES 1.02 10^3/uL (0.00-0.10); MEAN CELL HEMOGLOBIN CONCENTR. 40.2 g/dL (32.4-36.7)
[2017-03-15] MEDS ORDERED: SODIUM CITRATE 4% 5 ML in SYRINGE 0 ML DIAL PRN (07:24)
[2017-03-15 07:49] LABS: PLATELET ESTIMATE ADEQUATE (ADEQ)
[2017-03-15 07:51] LABS: ADD SCAN? NO
[2017-03-15 07:52] LABS: ADD MORPH? NO
[2017-03-15] MEDS: CALCIUM GLUCONATE 16.67 GM in NS 1,000 ML IV SCH (08:00)
[2017-03-15] MEDS: REPL FLUID TYPE D RXY 1 EA, SODIUM CITRATE 4% 375 ML, SODIUM Cl 3% 519 ML in WATER FOR ... DIAL SCH ×4 (08:00→19:49)
[2017-03-15] MEDS: B22GK4/0 PRISMASATE 5,000 ML DIAL SCH ×5 (08:00→23:43)
[2017-03-15] MEDS ORDERED: PHENYLEPHRINE HCL 50 MG in NS 250 ML IV SCH (08:00)
[2017-03-15] MEDS ORDERED: ALBUMIN 25% 50 ML SOLN IV ONE (08:12)
[2017-03-15] MEDS: NOREPINEPHRINE BITARTRATE 16 MG in D5W 250 ML IV SCH ×2 (08:20→22:48)
[2017-03-15] MEDS ORDERED: DEXMEDETOMIDINE/NS 4MCG/ML 100 ML BTL IV ONE (08:23)
[2017-03-15] MEDS ORDERED: DEXMEDETOMIDINE HCL 400 MCG in NS 100 ML IV SCH (08:30)
[2017-03-15] MEDS: DEXMEDETOMIDINE IN 0.9 % NACL 100 ML IV SCH ×5 (08:30→22:19)
[2017-03-15] MEDS ORDERED: MIDAZOLAM 2 MG/2 ML VIAL IVP PRN (08:32)
[2017-03-15 08:45] LABS: IONIZED CALCIUM 0.89 MMOL/L (1.12-1.30)
[2017-03-15] MEDS: fentaNYL/NACL 100 ML IV SCH ×3 (08:45→22:52)
[2017-03-15 08:56] LABS: ALANINE AMINOTRANSFERASE 74 IU/L (21-72); ALBUMIN 2.3 g/dL (3.5-5.0); ALKALINE PHOSPHATASE 119 IU/L (38-126); ANION GAP 17 mEq/L (8-16); ASPARTATE AMINOTRANSFERASE 213 IU/L (17-59); BILIRUBIN,TOTAL 0.4 mg/dL (0.1-1.4); CALCIUM 6.3 mg/dL (8.5-10.4); CARBON DIOXIDE 16 mEq/l (22-31); CHLORIDE 96 mEq/L (97-110); GLUCOSE 404 mg/dL (70-100); MAGNESIUM 2.1 mg/dL (1.6-2.3); POTASSIUM 3.6 mEq/L (3.5-5.2); SODIUM 129 mEq/L (134-144)
--- NOTE | 2017-03-15 08:59 | SOAPPROG ---
SOAP Progress Note Assessment/Plan: Assessment:Plan: ARF with refractory acidosis-unstable at start of CRRT -hypotensive requiring pressors -on vent -RÍOS, needing restraints and sedation -on Vaso, Epi and Norepi -getting volume and replacing calcium -bicarb given at start of RX due to hypotension and acidosis -will continue bicarb drip until it is clear that we have his acidosis and other metabolic derangements under control 03/15/17 08:55 Objective: Vital Signs Temp Pulse Resp BP Pulse Ox 36.9 C 102 H 26 H 90/44 L 93 03/15/17 07:43 03/15/17 07:43 03/15/17 07:43 03/15/17 07:43 03/15/17 07:43 Laboratory Results 03/15/17 05:40 03/14/17 03/15/17 03/16/17 05:59 05:59 05:59 Intake Total 5936 265 Output Total 730 400 Balance 5206 -135 PT 17.2 SEC (12.0-15.0) H 03/15/17 05:40 INR 1.39 (0.83-1.16) H 03/15/17 05:40 ICD10 Worksheet Patient Problems: Problems Problem Status Onset Acute kidney failure with tubular necrosis Acute - ICD10 Problem Qualifiers (1) Acute kidney failure with tubular necrosis
[2017-03-15] MEDS ORDERED: ENOXAPARIN 40 MG/0.4 ML SYR SC SCH (09:00)
[2017-03-15 09:06] LABS: CREATININE 3.3 mg/dL (0.7-1.3); GLOMERULAR FILTRATION RATE 20
[2017-03-15 09:15] LABS: BICARBONATE 15 mEq/L (22-26); MEASURED OXYGEN SATURATION 98 % (92-95); PCO2 37 mmHg (34-38); PO2 101 mmHg (65-75); TCO2 16 mEq/L (23-27)
[2017-03-15 09:17] LABS: ASSIST CONTROL YES; END TIDAL CO2 33; O2 CONCENTRATIION 60 % (0-100); P/F RATIO 168 RATIO
[2017-03-15] MEDS: ERTAPENEM 1 GM VIAL IVP SCH (09:26)
[2017-03-15] MEDS ORDERED: SODIUM BICARBONATE 50 MEQ/50 ML SYR IV ONE (09:45)
--- NOTE | 2017-03-15 09:55 | SOAPPROG ---
SOAP Progress Note Assessment/Plan: Assessment:Plan: ARF with refractory acidosis-unstable at start of CRRT -BP better with volume -on pressors -system clotted -needs to be restarted -catheter packed with citrate -calcium drip stopped while not on citrate/CRRT -pH better at 7.2, but this is unlikely to last long off CRRT 03/15/17 09:52 Objective: Vital Signs Temp Pulse Resp BP Pulse Ox 37.2 C 96 30 H 135/63 H 100 03/15/17 09:00 03/15/17 09:05 03/15/17 09:05 03/15/17 09:00 03/15/17 09:05 Laboratory Results 03/15/17 05:40 03/15/17 08:30 03/14/17 03/15/17 03/16/17 05:59 05:59 05:59 Intake Total 5936 265 Output Total 730 400 Balance 5206 -135 PT 17.2 SEC (12.0-15.0) H 03/15/17 05:40 INR 1.39 (0.83-1.16) H 03/15/17 05:40 ICD10 Worksheet Patient Problems: Problems Problem Status Onset Acute kidney failure with tubular necrosis Acute - ICD10 Problem Qualifiers (1) Acute kidney failure with tubular necrosis
[2017-03-15 10:01] LABS: IONIZED CALCIUM 1.22 MMOL/L (1.12-1.30)
[2017-03-15] MEDS: POTASSIUM Cl (KCl) 50 ML IV SCH ×8 (10:03→16:50)
[2017-03-15] MEDS ORDERED: ALBUMIN 25% 100 ML IV ONE (11:00)
--- NOTE | 2017-03-15 11:06 | PDMN ---
Medical Necessity Medical necessity: Patient meets INPT criteria per physician note and MCG Respiratory Failure GRG vs M-160 Sepsis and Other Febrile Illness without Focal Infection (patient found down/confused at home; HHNK/BG >1000 on admission, hypotensive, severe hyponatremia/Na 106; acute renal injury/Creat 3.3; lipase > 15,000; patient required intubation/mechanical ventilation for increasing hypoxia and resp distress; anticipated LOS > 2 midnights for ongoing management of critically ill patient.)
--- NOTE | 2017-03-15 11:07 | HOSPPROG ---
Hospitalist Progress Note Assessment/Plan: 51 yo M with PMH of uncontrolled possibly undiagnosed DM found down by roommate # HHS/DKA: continue insulin drip, A1c 13.9 # shock: likely multifactorial and due to ? sepsis/hypovolemia--remains on multiple pressors # acute hypoxic respiratory failure # AGMA/non gap acidosis # ISAIAS: crrt # rhabdomyloysis: ck > 29k # hypothermia # sirs/sepsis # elevated lipase: ? pancreatitis-needs further imaging when more stable, US limited but no clear abnormaliites # elevated lfts # electrolyte abnormalities: caution repleting given isaias Objective: Vital Signs Temp Pulse Resp BP Pulse Ox 37.6 C 100 30 H 128/69 H 100 03/15/17 10:00 03/15/17 10:00 03/15/17 10:00 03/15/17 10:00 03/15/17 10:00 Laboratory Results 03/15/17 05:40 03/14/17 03/15/17 03/16/17 05:59 05:59 05:59 Intake Total 5936 265 Output Total 730 400 Balance 5206 -135 PT 17.2 SEC (12.0-15.0) H 03/15/17 05:40 INR 1.39 (0.83-1.16) H 03/15/17 05:40 ICD10 Worksheet Patient Problems: Problems Problem Status Onset Acute kidney failure with tubular necrosis Acute
--- NOTE | 2017-03-15 11:17 | ECHO ---
[email or web address] [address] [address] Main: [phone] Fax: Transthoracic Echocardiogram Name: DEANN BURNETT MR#: [id number] Study Date: 03/15/2017 Study Time: 10:05 AM Date of : 1965 Age: 51 year(s) Height: 188 cm (74.02 in.) Weight: 113 kg (249.12 lb.) BSA: 2.39 m2 Gender: Male Examination: Indication: Found down, Cardiogenic shock, Intubated, Tachycardia Image Quality: Contrast: Requested by: Chiara Finn BP: 126 mmHg/73 mmHg Heart Rate: Rhythm: Indication: Found down, Cardiogenic shock, Intubated, Tachycardia Procedure Staff Child And Adolescent Psychiatrist: Neo Avila Reading Physician: Donovan Gomez Requesting Provider: Conclusions: No pericardial effusion. Normal left ventricular systolic function. Ejection fraction 72%. Diastolic dysfunction. Right ventricular systolic pressure is 37 mm of mercury. Measurements: Chambers Valvular Assessment AV/MV Valvular Assessment TV/PV Normal Normal Normal Name Value Range Name Value Range Name Value Range Ao Justyna (MM): 3.3 cm (2.2 cm-3.7 AV Vmax: 1.57 m/s (1 m/s-1.7 TR Vmax: 2.81 mm/s ( - ) cm) m/s) TR PGmax: 32 mmHg ( - ) IVSd (2D): 1.0 cm (0.6 cm-1.1 AV maxP mmHg ( - ) syst. PAP: 37 mmHg ( - ) cm) LVOT Vmax: 1.22 m/s (0.7 m/s-1.1 PV Vmax: 1.06 m/s (0.6 m/s-0.9 LVDd (2D): 4.8 cm (4.2 cm-5.9 m/s) m/s) cm) MV E Vmax: 0.55 m/s ( - ) PV PGmax: 4 mmHg ( - ) LVDs (2D): 2.8 cm (2.1 cm-4 MV A Vmax: 0.73 m/s ( - ) cm) MV E/A: 0.75 ( - ) LVPWd (2D): 1.1 cm (0.6 cm-1 cm) LVEF (2D): 72 (>=54 %) Continued Measurements: Chambers Valvular Assessment AV/MV Valvular Assessment TV/PV Name Value Name Value Name Value LADs Lon.7 cm MV E' Septal: 0.06 m/s CVP (est.): 5 mmHg LA Area: 16.2 cm2 MV E/E' Septal: 9.60 MV E/E' Lateral: 7.60 Patient: DEANN BURNETT Study Date: 03/15/2017 Page 1 of 2 10:05 AM Findings: Left Ventricle: Normal size left ventricle. No LV hypertrophy. Normal global systolic LV function. EF is 72 %. No regional wall motion abnormality. Diastolic dysfunction is present. . Tachycardia with hyperdynamic LV. Right Ventricle: Normal size right ventricle. Left Atrium: The left atrium is normal in size. Right Atrium: The right atrium is normal in size. Mitral Valve: The mitral valve is normal in appearance and function. Aortic Valve: The aortic valve is normal in appearance and function. The aortic valve is tri-leaflet. Tricuspid Valve: The tricuspid valve is normal in appearance and function. There is no tricuspid valve regurgitation. Pulmonic Valve: The pulmonic valve is normal in appearance and function. Aorta: The aorta is normal. Pericardium: No pericardial effusion. (No Signature Object) Patient: DEANN BURNETT Study Date: 03/15/2017 Page 2 of 2 10:05 AM [id number]
[2017-03-15] MEDS ORDERED: FOMEPIZOLE IV ONE (11:23)
[2017-03-15] MEDS ORDERED: D5W IV ONE (11:23)
--- NOTE | 2017-03-15 11:31 | ASMTCASEMG ---
Living Arrangements What is your living Answers: With Other (Not Family) arrangement? Who do you live with? Type Of Residence What kind of residence do Answers: Apartment you live in? Discharge Plan Comments Coordination Status Comments Notes: Patient is a 51yo single male admitted with severe metabolic acidosis, HHS, shock, acute hypoxic respiratory failure, hypothermia, hyponatremia, hyperkalemia. Patient was found down on the floor by his roommate who called [phone]. Patient's parents are Truong and Cathy Jamil ([phone]). Dr. Oropeza will call parents today to notify them patient is in the hospital and go over his current medical condition. Patient is listed as self pay - will notify Alicia. No therapies ordered at this time. CM will follow. Date Signed: 03/15/2017 11:30 AM Electronically Signed By:Katie Mcmullen LCSW
--- NOTE | 2017-03-15 11:34 | GOP ---
[f rep st] OPERATIVE REPORT DATE OF OPERATION: SURGEON: Pancho Barnett MD PREOPERATIVE DIAGNOSIS: 1. Diabetic ketoacidosis. 2. Severe pancreatitis. 3. Severe hypotension. 4. Severe hypothermia. 5. Use of intravenous vasopressors. POSTOPERATIVE DIAGNOSIS: 1. Diabetic ketoacidosis. 2. Severe pancreatitis. 3. Severe hypotension. 4. Severe hypothermia. 5. Use of intravenous vasopressors. PROCEDURE PERFORMED: Placement of a left femoral A-line. FINDINGS: Same DESCRIPTION OF PROCEDURE: The patient is in Trendelenburg position. His temperature is 34.6. He has a Maddy Hugger in place. The respiratory heater has been added. He was appropriately identified. His left groin was carefully clipped, prepped , and draped. Arterial access is easily established using a Seldinger technique. A guidewire is passed proximally. The needle was removed. The skin was incised. The 5 inch arterial line catheter was carefully placed over the guidewire and was sutured in position. The guidewire was removed. Good flow was identified. The transducer catheter was attached. Note, the prep had been with Betadine. The skin had been anesthetized with 1% Xylocaine. A Tegaderm dressing was now applied. The patient tolerated the procedure well. /[id number]/MODL MTDD
--- NOTE | 2017-03-15 11:50 | GOP ---
[f rep st] OPERATIVE REPORT DATE OF OPERATION: 03/15/2017 SURGEON: Pancho Barnett MD PREOPERATIVE DIAGNOSIS: 1. Diabetic ketoacidosis. 2. Severe pancreatitis. 3. Hypotension, requiring vasopressor agents. 4. Severe acidosis. 5. Hypothermia. POSTOPERATIVE DIAGNOSIS: 1. Diabetic ketoacidosis. 2. Severe pancreatitis. 3. Hypotension, requiring vasopressor agents. 4. Severe acidosis. 5. Hypothermia. PROCEDURE PERFORMED: Placement of a dialysis catheter in the right femoral vein for dialysis. FINDINGS: Same DESCRIPTION OF PROCEDURE: The groin was carefully clipped, prepped (using ChloraPrep), and draped. A surgical time-out was carried out and agreed to by all members of the ICU team. A finder needle was used to identify the femoral vein. The femoral vein was accessed on the 2nd pass. Good blood return was identified. The syringe was removed and the guidewire was carefully passed through the needle. The skin was incised. Two dilators were used to dilate the access tract up to the appropriate diameter. The pre flushed dialysis catheter was then carefully passed over the guidewire and secured in position with a suture. The 3rd lumen was carefully flushed and capped. Sterile dressing was applied. The patient tolerated the procedure well. /[id number]/MODL MTDD
[2017-03-15 11:59] LABS: ALANINE AMINOTRANSFERASE 65 IU/L (21-72); ALBUMIN 2.3 g/dL (3.5-5.0); ALKALINE PHOSPHATASE 119 IU/L (38-126); ANION GAP 16 mEq/L (8-16); ASPARTATE AMINOTRANSFERASE 259 IU/L (17-59); BILIRUBIN,TOTAL 0.7 mg/dL (0.1-1.4); CALCIUM 7.5 mg/dL (8.5-10.4); CARBON DIOXIDE 16 mEq/l (22-31); CHLORIDE 99 mEq/L (97-110); CREATININE 3.1 mg/dL (0.7-1.3); GLOMERULAR FILTRATION RATE 21; GLUCOSE 290 mg/dL (70-100); MAGNESIUM 1.9 mg/dL (1.6-2.3); POTASSIUM 2.9 mEq/L (3.5-5.2); SALICYLATE < 1.0 mg/dL (2.0-20.0); SODIUM 131 mEq/L (134-144); TOTAL PROTEIN 4.1 g/dL (6.3-8.2)
[2017-03-15 12:02] LABS: PROCALCITONIN 12.27 ng/mL (0.02-0.10)
[2017-03-15 12:10] LABS: TROPONIN I 0.782 ng/mL (0.000-0.034)
[2017-03-15 12:32] LABS: ANION GAP 18 mEq/L (8-16); CALCIUM 8.6 mg/dL (8.5-10.4); CARBON DIOXIDE 14 mEq/l (22-31); CHLORIDE 97 mEq/L (97-110); CREATININE 3.2 mg/dL (0.7-1.3); GLOMERULAR FILTRATION RATE 21; GLUCOSE 359 mg/dL (70-100); POTASSIUM 3.1 mEq/L (3.5-5.2); SODIUM 129 mEq/L (134-144)
[2017-03-15 12:40] LABS: HEMOGLOBIN A1C 13.9 % (4.0-6.0)
[2017-03-15 12:59] LABS: BASE EXCESS -8.2 mEq/L (-2.5-2.5); BICARBONATE 16 mEq/L (22-26); MEASURED OXYGEN SATURATION 98 % (92-95); PCO2 32 mmHg (34-38); PO2 106 mmHg (65-75); TCO2 17 mEq/L (23-27)
[2017-03-15 13:00] LABS: ASSIST CONTROL YES
[2017-03-15 13:01] LABS: O2 CONCENTRATIION 50 % (0-100); P/F RATIO 212 RATIO; TOTAL RATE 30
[2017-03-15 14:25] LABS: IONIZED CALCIUM 1.03 MMOL/L (1.12-1.30)
[2017-03-15] MEDS: NS 1,000 ML MISC SCH ×3 (14:26→23:23)
[2017-03-15] MEDS: HEPARIN 5,000 UNIT/0.5 ML SYR SC SCH ×2 (15:21→21:19)
[2017-03-15 16:17] LABS: IONIZED CALCIUM 0.96 MMOL/L (1.12-1.30)
[2017-03-15] MEDS: PROPOFOL/EMULSION 100 ML IV SCH ×2 (16:21→22:14)
[2017-03-15 16:40] LABS: POTASSIUM 3.5 mEq/L (3.5-5.2)
[2017-03-15 18:23] LABS: IONIZED CALCIUM 0.94 MMOL/L (1.12-1.30)
[2017-03-15 18:37] LABS: ANION GAP 15 mEq/L (8-16); CARBON DIOXIDE 16 mEq/l (22-31); CHLORIDE 103 mEq/L (97-110); CREATININE 2.4 mg/dL (0.7-1.3); GLOMERULAR FILTRATION RATE 29; GLUCOSE 119 mg/dL (70-100); MAGNESIUM 1.5 mg/dL (1.6-2.3); POTASSIUM 4.1 mEq/L (3.5-5.2); SODIUM 134 mEq/L (134-144)
[2017-03-15] MEDS: MAGNESIUM SULF 2 GM/WATER 50 ML IV PRN (19:07)
[2017-03-15] MEDS: SODIUM PHOS 20 MM in D5W 250 ML IV PRN (19:41)
[2017-03-15 20:21] LABS: APTT 30.5 SEC (23.0-38.0); INR 1.33 (0.83-1.16); PROTIME(PATIENT) 16.7 SEC (12.0-15.0)
[2017-03-15] MEDS ORDERED: FAMOTIDINE 20 MG/NACL 50 ML IV SCH (21:00)
[2017-03-15 21:11] LABS: HEMATOCRIT 26.6 % (40.0-51.0); HEMOGLOBIN 10.7 g/dL (13.7-17.5); MEAN CELL HEMOGLOBIN 31.2 pg (27.9-34.1); MEAN CELL VOLUME 77.6 fL (81.5-99.8); PLATELET COUNT 89 10^3/uL (150-400); RED BLOOD CELL COUNT 3.43 10^6/uL (4.40-6.38); RED CELL DISTRIBUTION WIDTH 11.9 % (11.5-15.2)
[2017-03-15 21:17] LABS: MEAN CELL HEMOGLOBIN CONCENTR. 40.2 g/dL (32.4-36.7)
--- NOTE | 2017-03-15 21:26 | GCON ---
[f rep st] CONSULTATION CRITICAL CARE CONSULTATION DATE OF CONSULTATION: 03/15/2017 HISTORY OF PRESENT ILLNESS: Mr. Jamil is a 51-year-old male who was found down by his roommate after being unconscious for several hours. The details of how he ended up this way is really unclear, alt ace according to family he had been complaining of a recent stomach bug and tweeted yesterday that it was the worst stomach bug he has ever experienced. Of note, he has a history of significant alcoh olism, although it is thought to be relatively controlled more recently, although he did state to the emergency department that his last drink was about 10 days prior to admission. He told the emergenc y department he had not had anything to eat or drink for several days and felt quite dehydrated, so h silva was able to speak when he got to the emergency department. However, he had a host of quite serious metabolic abnormalities and during the emergency department visit, it was felt that he was unable to protect his airway and was intubated there. He was quite hypotensive on arrival and received, I bel ieve up to 5 L of fluid en route to the intensive care unit and remained hypotensive despite pressors on arrival. PAST MEDICAL HISTORY: 1. Largely unknown, but is thought to be chronic pain. 2. Alcoholism, as described above. 3. Possible diabetes, but he does not have a primary care physician. PAST SURGICAL HISTORY: Unknown. SOCIAL HISTORY: He does chew tobacco and had last alcohol 10 days ago. Toxicology screen was negati ve, so no recreational drugs that we are aware. FAMILY HISTORY: Unknown. OUTPATIENT MEDICATIONS: None. PHYSICAL EXAMINATION: VITAL SIGNS: On my arrival to the bedside in the intensive care unit, he was afebrile and had been hypothermic to 31.7 on arrival in the emergency department. His blood pressure was about 70/50 despite 35 mcg of Levophed plus vasopressin. Lines had been placed in the interim b etween the emergency department and the time that I arrived including a dialysis catheter, arterial l ine, and central line. GENERAL: He was lightly sedated and moving around, but did not appear to be in respiratory distress. HEENT: Pupils are equally round and reactive to light, nonicteric and clementine njected. The mucous membranes appeared to be moist. Endotracheal tube was in place. NECK: Supple without obvious jugular vein distention. Line looked good without any hematoma. Breath sounds were clear to auscultation bilaterally without wheezes, rubs or rales. HEART: Regular rate and rhythm wi thout murmurs, rubs, or gallops. ABDOMEN: Obese, but soft, nontender, nondistended with hypoactive bowel tones. No hepatosplenomegaly. EXTREMITIES: Show no clubbing, cyanosis, or edema. SKIN: Was cool and somewhat mottled throughout, but pulses were palpable. NEUROLOGIC: Appeared to be grossly nonfocal including cranial nerves. LABORATORY DATA: Includes a white count of 11.3, which was 16 on arrival. Hematocrit of 30, platele ts of 182. PH of 6.92, pCO2 of 53, pO2 78. Bicarbonate was now 11, although initially was as low as 3. Sodium of 125, potassium 4.5, chloride 92, bicarbonate 9, BUN 78, creatinine 3.5, glucose 587, wh ich was greater than a 1000 on admission. Ionized calcium was 1.13, phosphorus 10.4, magnesium 2.7, AST 239, ALT 78, alkaline phosphatase 110. CPK 29,295. TSH was 1.8, albumin 2.5. Lactates were les s than 2, and toxicology screen was negative. Chest x-ray showed no infiltrates at this time. ASSESSMENT AND PLAN: 1. Mental status changes, which could be primarily metabolic in nature. I do not think there is a s troke. He needs improved sedation, which we should be able to achieve with propofol plus or minus fe ntanyl at this time. 2. Hypotension is likely related to volume, but also exacerbated by severe acidosis. I suspect that his hemodynamics will improve once his acidosis is fixed, which we will temporarily effect by lianne key the ventilator once the FILM FLAT INSPECTOR is up and running. This should help this quite a bit. My suspicion f or sepsis, acute coronary syndrome, or adrenal insufficiency is quite low, and I may add hydrocortiso ne if his pressor requirement continues to climb. A procalcitonin is pending at this time. In the s hort term, he is being supported with norepinephrine, and I added epinephrine, as well as the vasopre ssin. We will look at troponins and an echocardiogram is pending at this time. 3. Respiratory failure related to #1. Primarily support is required for now. We will increase the r espiratory rate and tidal volume since there is no ARDS on this current film, until the acidosis can be corrected by CRRT. 4. Hyperlipasemia, which was elevated at 15,837. In the absence of symptoms, I think that pancreati tis is unlikely, though eventually he will need a CT scan. It may just be related to his renal failu re. We will simply follow this for now since the management is primarily keeping him n.p.o. and givi ng him lots of fluids in the short term. We can certainly continue to watch his hematocrit and calci um, and recheck the lipase after he is dialyzed. 5. Transaminitis, which is mild, which may be due to his blood pressure, potentially related to alco hol, but he does have hepatomegaly on ultrasound at this time. I do not think hepatitis serologies a re required at the moment, but we may look at those eventually. 6. Acute kidney injury. This is probably a combination of hypovolemia and rhabdomyolysis. Dr. Negrita cannon is here from Nephrology. He is getting CRRT and a bicarbonate drip for now. He has received harman ral pushes as well as calcium drips until that can be fixed. We will follow his CK, as described abo ve. I would keep his volume status at least even if not continue to volume resuscitate him. We may look at a NICOM in the near future. 7. Hyperglycemia or hyperosmolar ketosis. He is on an insulin drip right now and a hemoglobin A1c i s pending. Aggressive fluids are also required for this. 8. Acid-base disorder. My interpretation is that he has a compensated metabolic acidosis, primarily the non-anion gap type. This is likely related to his acute kidney injury, as well as ketosis. The other possibility that comes to mind is ethylene glycol and methanol. A serum osmolality is pending at this time, and he may require fomepizole, although dialysis should be quite helpful for the activ e metabolites. He also has evidence of a non-gap metabolic acidosis, which I believe may be related to diarrhea, but the history is somewhat uncertain to me at this time. A renal tubular acidosis coul d also be causing this in this situation. A total of about 120 minutes of critical care time was required for the evaluation and assessment of this patient with multiorgan failure. /[id number]/MODL
[2017-03-15] MEDS: CHLORHEXIDINE GLUCONATE 15 ML UDL PO SCH (21:29)
[2017-03-16 00:08] LABS: ASSIST CONTROL YES; BASE EXCESS -6.6 mEq/L (-2.5-2.5); BICARBONATE 16 mEq/L (22-26); IONIZED CALCIUM 0.94 MMOL/L (1.12-1.30); MEASURED OXYGEN SATURATION 99 % (92-95); O2 CONCENTRATIION 40 % (0-100); P/F RATIO 330 RATIO; PCO2 24 mmHg (34-38); PO2 132 mmHg (65-75); TCO2 17 mEq/L (23-27)
[2017-03-16 00:09] LABS: END TIDAL CO2 25; TOTAL RATE 30
[2017-03-16] MEDS: REPL FLUID TYPE D CAPS 1 EA in WATER FOR INJECTION,STERILE 4,000 ML DIAL SCH ×8 (00:30→21:22)
[2017-03-16 00:33] LABS: ANION GAP 14 mEq/L (8-16); CALCIUM 6.7 mg/dL (8.5-10.4); CARBON DIOXIDE 17 mEq/l (22-31); CHLORIDE 102 mEq/L (97-110); GLOMERULAR FILTRATION RATE 35; GLUCOSE 145 mg/dL (70-100); MAGNESIUM 1.7 mg/dL (1.6-2.3); POTASSIUM 3.6 mEq/L (3.5-5.2); SODIUM 133 mEq/L (134-144)
[2017-03-16] MEDS: POTASSIUM Cl (KCl) 50 ML IV PRN ×2 (00:57→03:13)
[2017-03-16] MEDS: MAGNESIUM SULF 2 GM/WATER 50 ML IV PRN ×2 (00:58→08:36)
[2017-03-16] MEDS: SODIUM BICARBONATE 150 MEQ in WATER FOR INJECTION,STERILE 1,000 ML IV SCH ×3 (02:21→18:35)
[2017-03-16] MEDS: DEXMEDETOMIDINE IN 0.9 % NACL 100 ML IV SCH ×2 (02:24→06:29)
[2017-03-16] MEDS: PROPOFOL/EMULSION 100 ML IV SCH ×5 (02:24→22:00)
[2017-03-16] MEDS: B22GK4/0 PRISMASATE 5,000 ML DIAL SCH ×6 (03:25→22:50)
[2017-03-16] MEDS: NS 1,000 ML MISC SCH ×2 (03:25→23:53)
[2017-03-16] MEDS: VASOPRESSIN/DEXTROSE 250 ML IV SCH (04:10)
[2017-03-16] MEDS: CALCIUM GLUCONATE 16.67 GM in NS 1,000 ML IV SCH ×3 (05:54→22:00)
[2017-03-16 06:04] LABS: BASE EXCESS -6.4 mEq/L (-2.5-2.5); BICARBONATE 16 mEq/L (22-26); IONIZED CALCIUM 0.94 MMOL/L (1.12-1.30); MEASURED OXYGEN SATURATION 99 % (92-95); PCO2 25 mmHg (34-38); PO2 137 mmHg (65-75); TCO2 17 mEq/L (23-27)
[2017-03-16 06:06] LABS: ASSIST CONTROL YES; END TIDAL CO2 27; O2 CONCENTRATIION 40 % (0-100); P/F RATIO 343 RATIO; TOTAL RATE 30
[2017-03-16 06:16] LABS: INR 1.41 (0.83-1.16); PROTIME(PATIENT) 17.4 SEC (12.0-15.0)
[2017-03-16 06:17] LABS: APTT 39.3 SEC (23.0-38.0)
[2017-03-16 06:18] LABS: HEMATOCRIT 25.4 % (40.0-51.0); HEMOGLOBIN 10.4 g/dL (13.7-17.5); MEAN CELL HEMOGLOBIN 32.1 pg (27.9-34.1); MEAN CELL VOLUME 78.4 fL (81.5-99.8); MEAN PLATELET VOLUME 10.7 fL (8.7-11.7); PLATELET COUNT 80 10^3/uL (150-400); RED BLOOD CELL COUNT 3.24 10^6/uL (4.40-6.38); RED CELL DISTRIBUTION WIDTH 12.1 % (11.5-15.2)
[2017-03-16 06:21] LABS: MEAN CELL HEMOGLOBIN CONCENTR. 40.9 g/dL (32.4-36.7)
[2017-03-16 06:22] LABS: ADD MORPH? NO; ADD SCAN? YES; ALANINE AMINOTRANSFERASE 80 IU/L (21-72); ALBUMIN 2.2 g/dL (3.5-5.0); ALKALINE PHOSPHATASE 119 IU/L (38-126); ANION GAP 18 mEq/L (8-16); ASPARTATE AMINOTRANSFERASE 276 IU/L (17-59); BILIRUBIN-CONJUGATED 0.8 mg/dL (0.0-0.5); BILIRUBIN-UNCONJUGATED 0.2 mg/dL (0.0-1.1); CALCIUM 6.8 mg/dL (8.5-10.4); CARBON DIOXIDE 17 mEq/l (22-31); CHLORIDE 101 mEq/L (97-110); GLOMERULAR FILTRATION RATE 35; GLUCOSE 147 mg/dL (70-100); MAGNESIUM 1.9 mg/dL (1.6-2.3); POTASSIUM 3.4 mEq/L (3.5-5.2); SODIUM 136 mEq/L (134-144); TOTAL PROTEIN 4.3 g/dL (6.3-8.2)
[2017-03-16] MEDS: HEPARIN 5,000 UNIT/0.5 ML SYR SC SCH ×2 (06:29→09:35)
[2017-03-16] MEDS: NS 1,000 ML IV SCH ×2 (06:40→11:40)
[2017-03-16 07:05] LABS: ADD DIFF? YES; SCAN POSITIVE
[2017-03-16 07:13] LABS: MICROCYTES 2+; PLATELET ESTIMATE DECREASED (ADEQ); TARGET CELLS 2+
[2017-03-16 07:23] LABS: CK-MB INTERPRETATION NEGATIVE (NEGATIVE)
[2017-03-16] MEDS: SODIUM PHOS 20 MM in D5W 250 ML IV PRN ×2 (08:04→19:54)
[2017-03-16 08:19] LABS: PROPYLENE GLYCOL < 10 mg/dL (NODETECT)
[2017-03-16] MEDS: POTASSIUM Cl (KCl) 50 ML IV SCH ×2 (08:31→09:35)
[2017-03-16] MEDS: CHLORHEXIDINE GLUCONATE 15 ML UDL PO SCH ×2 (08:32→21:00)
[2017-03-16] MEDS: ERTAPENEM 1 GM VIAL IVP SCH (08:32)
[2017-03-16] MEDS ORDERED: POTASSIUM Cl (KCl) 50 ML IV ONE (08:45)
[2017-03-16] MEDS ORDERED: POTASSIUM Cl (KCl) 20 MEQ in NS 50 ML IV ONE (09:00)
[2017-03-16] MEDS: fentaNYL/NACL 100 ML IV SCH ×2 (09:34→18:36)
[2017-03-16 10:52] LABS: TROPONIN I 1.26 ng/mL (0.000-0.034)
[2017-03-16 11:56] LABS: IONIZED CALCIUM 0.93 MMOL/L (1.12-1.30)
[2017-03-16 12:29] LABS: ANION GAP 15 mEq/L (8-16); CALCIUM 6.7 mg/dL (8.5-10.4); CARBON DIOXIDE 17 mEq/l (22-31); CHLORIDE 101 mEq/L (97-110); CREATININE 1.9 mg/dL (0.7-1.3); GLOMERULAR FILTRATION RATE 38; GLUCOSE 154 mg/dL (70-100); MAGNESIUM 2.1 mg/dL (1.6-2.3); POTASSIUM 3.5 mEq/L (3.5-5.2); SODIUM 133 mEq/L (134-144)
[2017-03-16] MEDS: NOREPINEPHRINE BITARTRATE 16 MG in D5W 250 ML IV SCH ×2 (12:29→16:36)
--- NOTE | 2017-03-16 14:42 | PDINTPN ---
Ap Operator Progress Note Assessment/Plan: Assessment/plan:" 51 M with history of etoh presumably in remission and possible DM (no PCP) found down by his roommate who apparently stepped over him and returned several hours later to find him minimally responsive. On arrival to the ED he was awake but severely hypothermic, hypotensive, and acidotic with a pH of 6.8, glucose > 1000, hypocalcemia, ISAIAS, rhabdomyolysis, and severely elevated lipase. The etiology is unclear as the patient was intubated for airway protection. On arrival to the ICU he was very unstable, but had a central line placed as well as art line and HD catheter. CRRT was delayed for unclear reasons, but eventually his metabolic disturbances were better controlled with improvement in hemodynamics. * Altered MS- most consistent with severe toxic-metabolic derangements. No evidence of CVA, and will have to re-evaluate once sedation can be titrated. DC precedex in favor of propofol * Hypotension- probably a function of severe acidosis and hypovolemia as he has responded to large volume challenges. He reportedly did not have diarrhea, N/V but did have "the worst GI bug of his life" and has not taken in PO lately. Though his procalcitonin was quite elevated, this may not indicate true bacterial infection given his severe shock. The small increase in troponin also likely represents demand ischemia exacerbated by ISAIAS and is not likely an ACS. Would continue to support BP with NE which is now at 8 mcg and actively being reduced. His echo was unremarkable * Acute respiratory failure with hypoxemia- His CXR showed no evidence of PNA and his FiO2 is low. His RR and TV, are providing the bulk of improvement in his acid base disorder, as his serum HCO3 has not changed much since yesterday AM. Continue current vent support at this rate, unless there are substantial changes to his CRRT to compensate * Hyperlipassemia- he may have pancreatitis given his etoh history, hypocalcemia , and drop in HCT; though the level is effected by his ISAIAS. Will check CT without contrast today to evaluate since it could result in surgical management if he has necrotizing pancreatitis. Keep NPO for now. * Transaminitis- likely related to shock liver, and no evidence of obstructive physiology (eg gallstones). Check hepatitis panel to be sure * ISAIAS with rhabdomyolysis and refractory acidosis. The severity of his acidosis and hx of etoh with large osmolar gap are suggestive of methanol/ethylene glycol toxicity. He has continued to mostly improve on CRRT, so I dont think Fomepizole is indicated (too late). Levels are pending at this time, since it could explain potential neuro or visual issues that are not currently apparent. Cont with CRRT, but may reduce NS at 200/hr since his i/os are even. Adjustments per renal and appreciate excellent assistance. CK has expectantly dropped since starting CRRT. * DM- his elevated HgbA1c suggests untreated DM and he will likely require superintendent terminal insulin. His BG is currently controlled on insulin gtt. * Acid-base- as above, improved with vent and CRRT * Thrombocytopenia- his platelets have dropped significantly for unclear reasons. DC heparin, send HIT antibody. check DIC panel * Anemia- no clear signs of active bleeding and may be dilutional given 12 liters positive in last [address] Keep hgb >7 * FEN- has OGT, but would hold TF until we review the CT * DVT prophylaxis- SCDs, GI= changed pepcid to protonix for low chance of platelet involvement * * critical care time 75 minutes including vent management, bedside discussion in a complex patient with MOF. 03/16/17 14:43 Subjective: Much more stable overnight with large reduction in pressor requirement. Objective: Vital Signs Temp Pulse Resp BP Pulse Ox 35.8 C L 64 30 H 103/57 L 99 03/16/17 12:24 03/16/17 12:24 03/16/17 12:24 03/16/17 12:24 03/16/17 12:24 Laboratory Results 03/16/17 05:55 03/16/17 11:50 03/15/17 03/16/17 03/17/17 05:59 05:59 05:59 Intake Total 5936 27961.2 Output Total 730 1285 Balance 5206 32544.2 PT 17.4 SEC (12.0-15.0) H 03/16/17 05:55 INR 1.41 (0.83-1.16) H 03/16/17 05:55 Physical Exam - Physical Exam General Appearance: no apparent distress, obtunded, other (sedated) EENT: PERRL/EOMI, ET tube Neck: supple Respiratory: lungs clear, normal breath sounds, decreased breath sounds, No respiratory distress Cardiac/Chest: normal peripheral pulses, regular rate, rhythm, No edema Abdomen: non-tender, soft, No distended, No ascites Skin: normal color, warm/dry, No cyanosis Lymphatic: no adenopathy Extremities: No pedal edema Neuro/Psych: cognition abnormalities, No abnormal supervisor money room II-XII ICD10 Worksheet Patient Problems: Problems Problem Status Onset Acute kidney failure with tubular necrosis Acute
[2017-03-16] MEDS: POTASSIUM Cl (KCl) 20 MEQ in NS 50 ML IV SCH ×4 (14:50→22:30)
[2017-03-16 15:37] LABS: INR 1.43 (0.83-1.16); PROTIME(PATIENT) 17.6 SEC (12.0-15.0)
[2017-03-16 15:38] LABS: APTT 53.6 SEC (23.0-38.0); FIBRINOGEN 665 mg/dL (214-456)
[2017-03-16 16:06] LABS: PLATELET COUNT 82 10^3/uL (150-400)
[2017-03-16] MEDS: INSULIN REGULAR HUMAN 100 UNIT in NS 100 ML IV SCH (16:36)
--- NOTE | 2017-03-16 16:49 | HOSPPROG ---
Hospitalist Progress Note Assessment/Plan: 51 yo M with PMH of uncontrolled possibly undiagnosed DM found down by roommate # severe acidosis: in setting of significant metabolic derangements and likely hhs/dka. Improved now on vent. # acute hypoxic respiratory failure: with LLL opacification but otherwise relatively normal cxr on personal review, continues on vent # shock: presumably hypovolemic shock in the setting of pancreatitis and "GI illness" with n/v/diarrhea preceding admission as well as HHS/DKA all contributing to profound losses. Procalcitonin mildly elevated but in setting of isaias. Will get repeat procalcitonin and continue ertapenem for now to cover for possible GI pathogens. Blood cultures pending, UA unremarkable. Continued on several pressors. # HHS/DKA: continue insulin drip, A1c 13.9 on admission, gap now closed # acute pancreatitis: with very elevated lipase and radiographic findings c/w pancreatitis, likely underlying his acute presentation in part as above. He does have a significant etoh history and this likely represent etoh pancreatitis. # AGMA/non gap acidosis: with likely DKA, lactic acidosis, renal failure and non gap acidosis related to GI losses. Possibility of ingestions exist with very elevated osmolar gap--ethylene glycol and methanol levels pending. # ISAIAS: continued on CRRT, due to pre renal etiology as well as rhabdo presumably given FENa and shock. Creatinine nearly normalized. # rhabdomyloysis: ck > 29k in the setting of being down # hypothermia: re warmed # electrolyte abnormalities: repleting as needed # IP status, critically ill, intubated, on pressor support in ICU Care plan reviewed with Dr. Oropeza and multidisciplinary care team on rounds. Subjective: no significant overnight events Objective: Vital Signs Temp Pulse Resp BP Pulse Ox 35.8 C L 89 33 H 94/52 L 98 03/16/17 12:24 03/16/17 16:05 03/16/17 16:05 03/16/17 16:25 03/16/17 16:05 Laboratory Results 03/16/17 15:00 03/16/17 11:50 03/15/17 03/16/17 03/17/17 05:59 05:59 05:59 Intake Total 5936 52442.2 Output Total 730 1285 Balance 5206 05174.2 PT 17.6 SEC (12.0-15.0) H 03/16/17 15:00 INR 1.43 (0.83-1.16) H 03/16/17 15:00 intubated sedated anicteric ett in place rrr coarse bs throughout soft nt nd no cce warm dry well perfused sedated ICD10 Worksheet Patient Problems: Problems Problem Status Onset Acute kidney failure with tubular necrosis Acute
--- NOTE | 2017-03-16 17:55 | SOAPPROG ---
SOAP Progress Note Assessment/Plan: Assessment: 1. arf: presumed atn, combination of ischemic and nephrotoxic from rhabdo. Remains oliguric, dialysis-dependent. Crrt running well, will cont current rx with no net UF. Calcium increased slightly due to low iCa but would like to avoid over aggressive rx of this as will likely lead to pancreatic deposition. 2. met acidosis: improved but remains significant despite dialysis and iv bicarb. Cont current rx for now, I typically d/c iv bicarb once serum bicarb increases to 20. Serum osmol sent on admit, gap not elevated and therefore really not c/w toxic alcohol ingestion. 3. Shock: hemodynamics improving, once off pressors completely would consider transition to ihd assuming metabolic parameters stable. 4. pancreatitis: will avoid overzealous treatment of hypoCa as above. Plan: 03/16/17 17:49 Subjective: Initiated on crrt early yesterday am. Clotted system almost immediately but after being reset has run uneventfully. System reset this am prophylactically due to increasing TMP, then again later today after being taken off for CT. Remains on low-dose Levo. Overbreathing vent. Objective: Vital Signs Temp Pulse Resp BP Pulse Ox 35.8 C L 85 30 H 94/55 L 99 03/16/17 12:24 03/16/17 17:00 03/16/17 17:00 03/16/17 17:00 03/16/17 17:00 Laboratory Results 03/16/17 15:00 03/16/17 11:50 03/15/17 03/16/17 03/17/17 05:59 05:59 05:59 Intake Total 5936 83354.2 Output Total 730 1285 Balance 5206 15485.2 PT 17.6 SEC (12.0-15.0) H 03/16/17 15:00 INR 1.43 (0.83-1.16) H 03/16/17 15:00 Physical Exam - Physical Exam General Appearance: other (intubated, sedated) Respiratory: lungs clear (anteriorly) Cardiac/Chest: regular rate, rhythm Abdomen: soft, other (quiet) Extremities: pedal edema (none) ICD10 Worksheet Patient Problems: Problems Problem Status Onset Acute kidney failure with tubular necrosis Acute
[2017-03-16 18:04] LABS: IONIZED CALCIUM 0.94 MMOL/L (1.12-1.30)
[2017-03-16 18:30] LABS: ANION GAP 18 mEq/L (8-16); CALCIUM 6.9 mg/dL (8.5-10.4); CARBON DIOXIDE 17 mEq/l (22-31); CHLORIDE 99 mEq/L (97-110); CREATININE 2.2 mg/dL (0.7-1.3); GLOMERULAR FILTRATION RATE 32; GLUCOSE 146 mg/dL (70-100); POTASSIUM 3.5 mEq/L (3.5-5.2); SODIUM 134 mEq/L (134-144)
[2017-03-16 18:40] LABS: TROPONIN I 0.974 ng/mL (0.000-0.034)
[2017-03-16 18:49] LABS: PLATELET CLUMPS FLAG 10 (0-99); PLATELET COUNT 63 10^3/uL (150-400); RED BLOOD CELL COUNT 3.23 10^6/uL (4.40-6.38)
[2017-03-16 18:52] LABS: LIPEMIA HEMOLYSIS FLAG 100 (0-99)
[2017-03-16 21:13] LABS: PROCALCITONIN 24.01 ng/mL (0.02-0.10)
[2017-03-17 00:40] LABS: IONIZED CALCIUM 0.98 MMOL/L (1.12-1.30)
[2017-03-17 00:51] LABS: ANION GAP 15 mEq/L (8-16); CALCIUM 7.4 mg/dL (8.5-10.4); CARBON DIOXIDE 22 mEq/l (22-31); CHLORIDE 101 mEq/L (97-110); CREATININE 2.2 mg/dL (0.7-1.3); GLOMERULAR FILTRATION RATE 32; GLUCOSE 130 mg/dL (70-100); MAGNESIUM 1.7 mg/dL (1.6-2.3); POTASSIUM 4.1 mEq/L (3.5-5.2); SODIUM 138 mEq/L (134-144)
[2017-03-17 00:52] LABS: APTT 38.3 SEC (23.0-38.0); INR 1.17 (0.83-1.16); PROTIME(PATIENT) 15.1 SEC (12.0-15.0)
[2017-03-17 01:15] LABS: TROPONIN I 0.969 ng/mL (0.000-0.034)
[2017-03-17] MEDS: MAGNESIUM SULF 2 GM/WATER 50 ML IV PRN ×2 (01:52→11:33)
[2017-03-17] MEDS: fentaNYL/NACL 100 ML IV SCH ×3 (01:53→22:34)
[2017-03-17] MEDS: PROPOFOL/EMULSION 100 ML IV SCH ×4 (01:53→12:45)
[2017-03-17] MEDS: REPL FLUID TYPE D CAPS 1 EA in WATER FOR INJECTION,STERILE 4,000 ML DIAL SCH ×8 (01:54→22:36)
[2017-03-17] MEDS: SODIUM BICARBONATE 150 MEQ in WATER FOR INJECTION,STERILE 1,000 ML IV SCH (02:20)
[2017-03-17 02:52] LABS: HEMATOCRIT 24.5 % (40.0-51.0); HEMOGLOBIN 9.2 g/dL (13.7-17.5); MEAN CELL HEMOGLOBIN 31.1 pg (27.9-34.1); MEAN CELL VOLUME 82.8 fL (81.5-99.8); RED BLOOD CELL COUNT 2.96 10^6/uL (4.40-6.38); RED CELL DISTRIBUTION WIDTH 13.1 % (11.5-15.2)
[2017-03-17 02:53] LABS: MEAN CELL HEMOGLOBIN CONCENTR. 37.6 g/dL (32.4-36.7)
[2017-03-17] MEDS: CALCIUM GLUCONATE 16.67 GM in NS 1,000 ML IV SCH ×3 (03:23→15:47)
[2017-03-17] MEDS: B22GK4/0 PRISMASATE 5,000 ML DIAL SCH ×7 (03:25→21:30)
[2017-03-17 05:23] LABS: IONIZED CALCIUM 1.03 MMOL/L (1.12-1.30)
[2017-03-17 05:40] LABS: APTT 37.2 SEC (23.0-38.0); INR 1.08 (0.83-1.16); PROTIME(PATIENT) 14.2 SEC (12.0-15.0)
[2017-03-17 05:42] LABS: ANION GAP 18 mEq/L (8-16); CALCIUM 7.5 mg/dL (8.5-10.4); CARBON DIOXIDE 20 mEq/l (22-31); CHLORIDE 100 mEq/L (97-110); CREATININE 2.1 mg/dL (0.7-1.3); GLOMERULAR FILTRATION RATE 33; GLUCOSE 116 mg/dL (70-100); MAGNESIUM 1.8 mg/dL (1.6-2.3); POTASSIUM 3.4 mEq/L (3.5-5.2); SODIUM 138 mEq/L (134-144)
[2017-03-17] MEDS: ACCESSORY DRAIN 1 EA BAG***SEND #2 INITIALLY MISC PRN ×2 (05:45→14:34)
[2017-03-17 06:20] LABS: HEMATOCRIT 24.5 % (40.0-51.0); HEMOGLOBIN 9.3 g/dL (13.7-17.5); MEAN CELL HEMOGLOBIN 31.7 pg (27.9-34.1); MEAN CELL VOLUME 83.6 fL (81.5-99.8); RED BLOOD CELL COUNT 2.93 10^6/uL (4.40-6.38); RED CELL DISTRIBUTION WIDTH 13.2 % (11.5-15.2)
[2017-03-17] MEDS: PANTOPRAZOLE SODIUM 40 MG VIAL IVP SCH (07:52)
[2017-03-17] MEDS: ERTAPENEM 1 GM VIAL IVP SCH (08:11)
[2017-03-17] MEDS: POTASSIUM Cl (KCl) 20 MEQ in NS 50 ML IV SCH ×3 (08:11→19:44)
[2017-03-17] MEDS: CHLORHEXIDINE GLUCONATE 15 ML UDL PO SCH ×2 (08:30→20:56)
[2017-03-17 08:31] LABS: BASE EXCESS -4.5 mEq/L (-2.5-2.5); BICARBONATE 19 mEq/L (22-26); MEASURED OXYGEN SATURATION 99 % (92-95); PCO2 30 mmHg (34-38); PO2 126 mmHg (65-75); TCO2 20 mEq/L (23-27)
[2017-03-17 08:32] LABS: TOTAL RATE 32
[2017-03-17 08:33] LABS: ASSIST CONTROL YES; O2 CONCENTRATIION 48 % (0-100); P/F RATIO 263 RATIO
[2017-03-17] MEDS ORDERED: VANCOMYCIN HCL/NORMAL SALINE 250 ML IV ONE (08:41)
[2017-03-17] MEDS ORDERED: VANCOMYCIN 1.5 GM in D5W 250 ML IV ONE (09:00)
[2017-03-17] MEDS: NS 1,000 ML MISC SCH ×3 (09:02→18:29)
[2017-03-17] MEDS ORDERED: PARAMETERS MISC PRN (11:18)
[2017-03-17] MEDS ORDERED: D50W 25 GM/50 ML SYR IVP PRN (11:18)
[2017-03-17] MEDS ORDERED: D50W 25 GM/50 ML VIAL IVP PRN (11:18)
[2017-03-17] MEDS ORDERED: CANN-EASE 2 GM TUBE TP ONE (12:19)
[2017-03-17] MEDS: INSULIN REGULAR, HUMAN 100 UNIT/1 ML VIAL STANDARD SC SCH ×2 (12:20→18:28)
[2017-03-17 12:22] LABS: IONIZED CALCIUM 1.05 MMOL/L (1.12-1.30)
[2017-03-17 12:41] LABS: ANION GAP 19 mEq/L (8-16); CALCIUM 8.2 mg/dL (8.5-10.4); CARBON DIOXIDE 17 mEq/l (22-31); CHLORIDE 99 mEq/L (97-110); CREATININE 2.1 mg/dL (0.7-1.3); GLOMERULAR FILTRATION RATE 33; GLUCOSE 172 mg/dL (70-100); MAGNESIUM 1.7 mg/dL (1.6-2.3); POTASSIUM 3.7 mEq/L (3.5-5.2); SODIUM 135 mEq/L (134-144)
--- NOTE | 2017-03-17 14:32 | PDINTPN ---
[facility] Physician Dermatologist Progress Note Assessment/Plan: Assessment/plan:" 51 M with history of etoh presumably in remission and possible DM (no PCP) found down by his roommate who apparently stepped over him and returned several hours later to find him minimally responsive. On arrival to the ED he was awake but severely hypothermic, hypotensive, and acidotic with a pH of 6.8, glucose > 1000, hypocalcemia, ISAIAS, rhabdomyolysis, and severely elevated lipase. The etiology is unclear as the patient was intubated for airway protection. On arrival to the ICU he was very unstable, but had a central line placed as well as art line and HD catheter. CRRT was delayed for unclear reasons, but eventually his metabolic disturbances were better controlled with improvement in hemodynamics. * Altered MS- most consistent with severe toxic-metabolic derangements. No evidence of CVA, and will have to re-evaluate once sedation can be titrated. Given dramatic improvement, will go back to precedex for comfort in anticipation of possible extubation soon (tomorrow?) * Hypotension- probably a function of severe acidosis and hypovolemia as he has responded to large volume challenges. He reportedly did not have diarrhea, N/V but did have "the worst GI bug of his life" and has not taken in PO lately. Though his procalcitonin was quite elevated, this may not indicate true bacterial infection given his severe shock. The small increase in troponin also likely represents demand ischemia exacerbated by ISAIAS and is not likely an ACS. Would continue to support BP with NE which is now at 8 mcg and actively being reduced. His echo was unremarkable. Now resolved and off pressors * Acute respiratory failure with hypoxemia- His CXR showed no evidence of PNA and his FiO2 is low, though there is lower lobe consolidation on his CT. His RR and TV, were providing the bulk of improvement in his acid base disorder, as his serum HCO3 has not changed much until 03/17. Continue current vent support at this rate, and will attempt weans today * Pancreatitis- his CT supports the diagnosis and rules out necrotizing pancreatitis or abdominal bleeding. His lipase has likely been cleared by CRRT. Continue with NPO and may need TPN, but will re-evaluate once extubated. Will need PICC in AM (central line is suboptimally placed). * Transaminitis- likely related to shock liver, and no evidence of obstructive physiology (eg gallstones). Hep studies pending * ISAIAS with rhabdomyolysis and refractory acidosis. The severity of his acidosis and hx of etoh with large osmolar gap are suggestive of methanol/ethylene glycol toxicity, but his levels were low, perhaps related to CRRT. He has continued to mostly improve on CRRT, so I dont think Fomepizole is indicated ( too late). Levels are pending at this time, since it could explain potential neuro or visual issues that are not currently apparent. Adjustments per renal and appreciate excellent assistance. CK has expectantly dropped since starting CRRT. * DM- his elevated HgbA1c suggests untreated DM and he will likely require talent rep insulin. His BG is currently controlled on insulin gtt, but will try SS * Acid-base- as above, improved with vent and CRRT * Thrombocytopenia- his platelets have dropped significantly for unclear reasons. DC heparin, send HIT antibody. check DIC panel * Anemia- no clear signs of active bleeding and may be dilutional given 12 liters positive in last [address] Keep hgb >7 * FEN- has OGT, but would hold TF until we review the CT * DVT prophylaxis- SCDs, GI= changed pepcid to protonix for low chance of platelet involvement * * critical care time 45 minutes including vent management, bedside discussion in a complex patient with MOF. 03/16/17 14:43 03/17/17 14:26 Subjective: stable overnight and levophed off Objective: Vital Signs Temp Pulse Resp BP Pulse Ox 36.9 C 77 15 150/80 H 100 03/17/17 14:00 03/17/17 14:00 03/17/17 14:00 03/17/17 14:00 03/17/17 14:00 Laboratory Results 03/17/17 05:10 03/17/17 12:13 03/16/17 03/17/17 03/18/17 05:59 05:59 05:59 Intake Total 80863.2 7240 960.2 Output Total 1285 320 180 Balance 50517.2 6920 780.2 PT 14.2 SEC (12.0-15.0) 03/17/17 05:10 INR 1.08 (0.83-1.16) 03/17/17 05:10 Physical Exam - Physical Exam General Appearance: no apparent distress, obtunded, other (sedated) EENT: PERRL/EOMI Neck: supple, other (central line) Respiratory: lungs clear, normal breath sounds, No respiratory distress Cardiac/Chest: regular rate, rhythm, No edema Abdomen: non-tender, soft, No distended, No guarding Skin: normal color, warm/dry, No cyanosis Lymphatic: no adenopathy Extremities: No pedal edema Neuro/Psych: cognition abnormalities ICD10 Worksheet Patient Problems: Problems Problem Status Onset Acute kidney failure with tubular necrosis Acute
[2017-03-17 14:47] LABS: MAGNESIUM 2.2 mg/dL (1.6-2.3); POTASSIUM 3.8 mEq/L (3.5-5.2)
--- NOTE | 2017-03-17 15:37 | SOAPPROG ---
SOAP Progress Note Assessment/Plan: Assessment: 1. arf: presumed atn, combination of ischemic from hypotension and nephrotoxic from rhabdo. Remains oliguric, dialysis-dependent. Crrt running well, volume status looks good. Will cont current rx with no net UF until current supply of dialysate exhausted, then d/c. Will need to eval tomorrow re: hd Saturday or Saturday. 2. met acidosis: improved this am but bicarb down again s/p d/c supplemental bicarb. This will likely be main determinate of whether hd will need to occur Sat or . 3. Shock: resolved, will transition to ihd as above. 4. pancreatitis: have tried to avoid overzealous treatment of hypoCa to minimize pancreatic deposition. Plan: 03/16/17 17:49 03/17/17 15:33 Subjective: Off pressors, has been on cpap most of day. Bicarb gtt d/c'd this am. Cvp running 8-10. Objective: Vital Signs Temp Pulse Resp BP Pulse Ox 36.8 C 76 15 153/82 H 100 03/17/17 14:53 03/17/17 14:53 03/17/17 14:53 03/17/17 14:53 03/17/17 14:53 Laboratory Results 03/17/17 05:10 03/17/17 14:28 03/16/17 03/17/17 03/18/17 05:59 05:59 05:59 Intake Total 57852.2 7240 960.2 Output Total 1285 320 180 Balance 74848.2 6920 780.2 PT 14.2 SEC (12.0-15.0) 03/17/17 05:10 INR 1.08 (0.83-1.16) 03/17/17 05:10 Physical Exam - Physical Exam General Appearance: other (intubated, sedated) Respiratory: lungs clear (anteriorly) Cardiac/Chest: regular rate, rhythm Abdomen: soft Extremities: pedal edema (none) ICD10 Worksheet Patient Problems: Problems Problem Status Onset Acute kidney failure with tubular necrosis Acute
--- NOTE | 2017-03-17 16:37 | HOSPPROG ---
Hospitalist Progress Note Assessment/Plan: 51 yo M with PMH of uncontrolled possibly undiagnosed DM found down by roommate # severe acidosis: in setting of significant metabolic derangements and likely hhs/dka. Improved now on vent. # acute hypoxic respiratory failure: with LLL opacification but otherwise relatively normal cxr on personal review, continues on vent # shock: presumably hypovolemic shock in the setting of pancreatitis and "GI illness" with n/v/diarrhea preceding admission as well as HHS/DKA all contributing to profound losses. Procalcitonin mildly elevated but in setting of isaias. Continued on ertapenem for potential GI pathogens. Blood cultures pending, UA unremarkable. Continued on several pressors. # HHS/DKA: continue insulin drip, A1c 13.9 on admission, gap now closed # acute pancreatitis: with very elevated lipase and radiographic findings c/w pancreatitis, likely underlying his acute presentation in part as above. He does have a significant etoh history and this likely represent etoh pancreatitis. # AGMA/non gap acidosis: with likely DKA, lactic acidosis, renal failure and non gap acidosis related to GI losses. Ethylene glycol and methanol levels negative # ISAIAS: continued on CRRT, due to pre renal etiology as well as rhabdo presumably given FENa and shock. Remains oliguric. # rhabdomyloysis: ck > 29k on arrival in the setting of being down # hypothermia: re warmed # electrolyte abnormalities: repleting as needed # IP status, critically ill, intubated, on pressor support in ICU Care plan reviewed with Dr. Oropeza and multidisciplinary care team on rounds. Subjective: no significant overnight events, patient remains intubated/sedated Objective: Vital Signs Temp Pulse Resp BP Pulse Ox 36.7 C 73 14 149/81 H 99 03/17/17 16:00 03/17/17 16:00 03/17/17 16:00 03/17/17 16:00 03/17/17 16:00 Laboratory Results 03/17/17 05:10 03/17/17 14:28 03/16/17 03/17/17 03/18/17 05:59 05:59 05:59 Intake Total 52200.2 7240 960.2 Output Total 1285 320 180 Balance 04948.2 6920 780.2 PT 14.2 SEC (12.0-15.0) 03/17/17 05:10 INR 1.08 (0.83-1.16) 03/17/17 05:10 intubated sedated anicteric ett in place rrr coarse bs throughout soft nt nd no cce warm dry well perfused sedated ICD10 Worksheet Patient Problems: Problems Problem Status Onset Acute kidney failure with tubular necrosis Acute
[2017-03-17] MEDS: DEXMEDETOMIDINE IN 0.9 % NACL 100 ML IV SCH ×2 (17:41→22:36)
[2017-03-17 18:45] LABS: INR 0.98 (0.83-1.16); PROTIME(PATIENT) 13.2 SEC (12.0-15.0)
[2017-03-17 18:46] LABS: APTT 32.8 SEC (23.0-38.0); IONIZED CALCIUM 1.14 MMOL/L (1.12-1.30)
[2017-03-17 19:01] LABS: ANION GAP 21 mEq/L (8-16); CALCIUM 8.9 mg/dL (8.5-10.4); CARBON DIOXIDE 15 mEq/l (22-31); CHLORIDE 100 mEq/L (97-110); CREATININE 2.2 mg/dL (0.7-1.3); GLOMERULAR FILTRATION RATE 32; GLUCOSE 175 mg/dL (70-100); SODIUM 136 mEq/L (134-144)
[2017-03-17 19:55] LABS: HEMATOCRIT 24.7 % (40.0-51.0); HEMOGLOBIN 9.2 g/dL (13.7-17.5); MEAN CELL HEMOGLOBIN 31.6 pg (27.9-34.1); MEAN CELL HEMOGLOBIN CONCENTR. 37.2 g/dL (32.4-36.7); MEAN CELL VOLUME 84.9 fL (81.5-99.8); RED BLOOD CELL COUNT 2.91 10^6/uL (4.40-6.38); RED CELL DISTRIBUTION WIDTH 13.8 % (11.5-15.2)
[2017-03-17] MEDS ORDERED: CALCIUM GLUCONATE IV ONE (21:30)
[2017-03-17] MEDS ORDERED: NS IV ONE (21:30)
[2017-03-18 02:44] LABS: GLUCOSE 201 mg/dL (70-100)
[2017-03-18] MEDS: DEXMEDETOMIDINE IN 0.9 % NACL 100 ML IV SCH ×3 (03:08→15:29)
[2017-03-18] MEDS: INSULIN REGULAR, HUMAN 100 UNIT/1 ML VIAL STANDARD SC SCH ×3 (03:39→11:35)
[2017-03-18 05:10] LABS: APTT 31.3 SEC (23.0-38.0); INR 1.02 (0.83-1.16); PROTIME(PATIENT) 13.6 SEC (12.0-15.0)
[2017-03-18 05:28] LABS: ALBUMIN 2.3 g/dL (3.5-5.0); ANION GAP 26 mEq/L (8-16); CALCIUM 8.6 mg/dL (8.5-10.4); CARBON DIOXIDE 11 mEq/l (22-31); CHLORIDE 100 mEq/L (97-110); CREATININE 2.8 mg/dL (0.7-1.3); GLOMERULAR FILTRATION RATE 24; GLUCOSE 225 mg/dL (70-100); SODIUM 137 mEq/L (134-144)
[2017-03-18 05:33] LABS: ABSOLUTE NRBC COUNT 0.05 10^3/uL (0-0.01); ADD DIFF? YES; ADD MORPH? NO; ATYPICAL LYMPHOCYTE FLAG 0 (0-99); FRAGMENT RBC FLAG 0 (0-99); HEMATOCRIT 23.9 % (40.0-51.0); HEMOGLOBIN 8.6 g/dL (13.7-17.5); LIPEMIA HEMOLYSIS FLAG 90 (0-99); MEAN CELL HEMOGLOBIN 30.8 pg (27.9-34.1); MEAN CELL VOLUME 85.7 fL (81.5-99.8); MEAN PLATELET VOLUME 12.3 fL (8.7-11.7); NRBC-AUTO% 0.2 % (0.0-0.2); PLATELET CLUMPS FLAG 10 (0-99); PLATELET COUNT 72 10^3/uL (150-400); RED BLOOD CELL COUNT 2.79 10^6/uL (4.40-6.38); RED CELL DISTRIBUTION WIDTH 14.2 % (11.5-15.2)
[2017-03-18 05:35] LABS: ADD SCAN? NO; LEFT SHIFT FLG 150 (0-99)
[2017-03-18 06:06] LABS: ECHINOCYTES 1+; PLATELET ESTIMATE DECREASED (ADEQ); POLYCHROMASIA 1+
[2017-03-18] MEDS: PANTOPRAZOLE SODIUM 40 MG VIAL IVP SCH (07:54)
[2017-03-18 07:59] LABS: BASE EXCESS -10.8 mEq/L (-2.5-2.5); BICARBONATE 13 mEq/L (22-26); MEASURED OXYGEN SATURATION 99 % (92-95); PCO2 24 mmHg (34-38); PO2 158 mmHg (65-75); TCO2 14 mEq/L (23-27)
[2017-03-18 08:00] LABS: CPAP YES; END TIDAL CO2 27; O2 CONCENTRATIION 40 % (0-100); P/F RATIO 395 RATIO
[2017-03-18 08:01] LABS: PATIENT RATE 25; PRESSURE SUPPORT 7
[2017-03-18] MEDS: CHLORHEXIDINE GLUCONATE 15 ML UDL PO SCH (08:40)
[2017-03-18] MEDS ORDERED: ERTAPENEM 1 GM VIAL IVP SCH (09:00)
--- NOTE | 2017-03-18 10:07 | SOAPPROG ---
SOAP Progress Note Assessment/Plan: Assessment/Plan: ISAIAS: presumed ATN. Pt is now off CRRT, remains oliguric. - Will do HD today. - Will continue to monitor for renal recovery and further HD needs. - Avoid hypotension and nephrotoxins. Metabolic acidosis: pt has respiratory alkalosis and metabolic acidosis, pH ok at 7.35. - Will modulate further on HD today. - Will continue to monitor. Shock: pt remains on low dose Levophed today. Subjective: No acute events overnight. CRRT stopped, pt is on 1 of Levophed and remains intubated. Objective: Vital Signs Temp Pulse Resp BP Pulse Ox 38.0 C 63 35 H 124/70 H 100 03/18/17 08:00 03/18/17 09:28 03/18/17 09:28 03/18/17 08:00 03/18/17 09:28 Microbiology 03/17/17 16:15 - Final Sputum, Induced/Suctioned Laboratory Results 03/18/17 04:40 03/18/17 04:40 03/17/17 03/18/17 03/19/17 05:59 05:59 05:59 Intake Total 7240 5018.8 Output Total 320 789 Balance 6920 4229.8 PT 13.6 SEC (12.0-15.0) 03/18/17 04:40 INR 1.02 (0.83-1.16) 03/18/17 04:40 General: sedated, no acute distress OP: Intubated CV: RRR Resp: intubated and on vent, coarse breath sounds Abd: Soft, NT Ext: no edema BLE Neuro: no asterixis ICD10 Worksheet Patient Problems: Problems Problem Status Onset Acute kidney failure with tubular necrosis Acute
--- NOTE | 2017-03-18 11:21 | PDINTPN ---
Forest Technician Progress Note Assessment/Plan: Assessment: 51 M with history of etoh presumably in remission and possible DM (no PCP) found down by his roommate who apparently stepped over him and returned several hours later to find him minimally responsive. On arrival to the ED he was awake but severely hypothermic, hypotensive, and acidotic with a pH of 6.8, glucose > 1000, hypocalcemia, ISAIAS, rhabdomyolysis, and severely elevated lipase. The etiology is unclear as the patient was intubated for airway protection. On arrival to the ICU he was very unstable, but had a central line placed as well as art line and HD catheter. CRRT was delayed for unclear reasons, but eventually his metabolic disturbances were better controlled with improvement in hemodynamics. * Altered MS- most consistent with severe toxic-metabolic derangements. No evidence of CVA, and will have to re-evaluate once sedation can be titrated. * Hypotension- probably a function of severe acidosis and hypovolemia as he has responded to large volume challenges. He reportedly did not have diarrhea, N/V but did have "the worst GI bug of his life" and has not taken in PO lately. Though his procalcitonin was quite elevated, this may not indicate true bacterial infection given his severe shock. The small increase in troponin also likely represents demand ischemia exacerbated by ISAIAS and is not likely an ACS. Would continue to support BP with NE which is now being titrated, hopefully can come off soon. * Acute respiratory failure with hypoxemia- His CXR showed no evidence of PNA and his FiO2 is low, though there is lower lobe consolidation on his CT. He's doing well on CPAP, but his VE is high likely due to metabolic acidosis. * Pancreatitis- his CT supports the diagnosis and rules out necrotizing pancreatitis or abdominal bleeding. His lipase has likely been cleared by CRRT. Continue with NPO and may need TPN, but will re-evaluate once extubated. Will need PICC in AM (central line is suboptimally placed). * Transaminitis- likely related to shock liver, and no evidence of obstructive physiology (eg gallstones). Hep studies negative * ISAIAS with rhabdomyolysis and refractory acidosis. Adjustments per renal and appreciate excellent assistance. CK has expectantly dropped since starting CRRT. * DM- his elevated HgbA1c suggests untreated DM and he will likely require snf insulin. His BG is currently controlled on SSI. * Acid-base- Improved, but today he has worsening AG Metabolic acidosis. Lactate normal. ISAIAS could contribute, but I'm also concerned that he has DKA as he is getting just PRN insulin and has no nutritional intake (so may not get hyperglycemic). * Thrombocytopenia- his platelets have dropped significantly for unclear reasons. Low but improving. Off heparin, HIT antibody pending. * Anemia- no clear signs of active bleeding and may be dilutional given 12 liters positive in last [address] Keep hgb >7 * FEN- No nutrition * DVT prophylaxis- SCDs, GI= changed pepcid to protonix for low chance of platelet involvement Plan: Will check B-hydroxybutyrate level, lipase, but will start TF and some D5 so we can give more insulin for suspected DKA. Will increase frequency of SSI checks, consider IV insulin if BSs high. Will hopefully start long-acting insulin soon. Hold off on extubation until after HD and his AG met acidosis has been corrected. Wean off NE as tolerated. HD today. 03/18/17 11:46 03/18/17 11:50 Subjective: Intubated, sedated but responds to simple commands. Objective: Vital Signs Temp Pulse Resp BP Pulse Ox 37.9 C 61 28 H 102/56 L 100 03/18/17 10:00 03/18/17 10:00 03/18/17 10:00 03/18/17 10:00 03/18/17 10:00 Microbiology 03/17/17 16:15 - Final Sputum, Induced/Suctioned Laboratory Results 03/18/17 04:40 03/18/17 04:40 03/17/17 03/18/17 03/19/17 05:59 05:59 05:59 Intake Total 7240 5018.8 Output Total 320 789 30 Balance 6920 4229.8 -30 PT 13.6 SEC (12.0-15.0) 03/18/17 04:40 INR 1.02 (0.83-1.16) 03/18/17 04:40 l Laboratory Tests 03/18/17 07:46 pCO2 24 L pO2 158 H Total CO2 14 L ABG pH 7.35 ABG HCO3 13 L ABG Lactic Acid 0.9 O2 Concentration % 40 Actual Respiration Rate 25 End Tidal CO2 27 PEEP 5 Laboratory Tests 03/16/17 15:00 Hepatitis A IgM Ab NEGATIVE Hep Bs Antigen NEGATIVE Hep B Core IgM Ab NEGATIVE Hepatitis C Antibody NEGATIVE Physical Exam - Physical Exam General Appearance: alert, no apparent distress EENT: normal ENT inspection Neck: normal inspection Respiratory: chest non-tender, lungs clear, normal breath sounds Cardiac/Chest: regular rate, rhythm, No edema Abdomen: normal bowel sounds, non-tender, soft Skin: normal color, warm/dry Extremities: normal inspection Neuro/Psych: No alert (sedated), No normal mood/affect, No oriented x 3, No motor weakness ICD10 Worksheet Patient Problems: Problems Problem Status Onset Acute kidney failure with tubular necrosis Acute
[2017-03-18] MEDS: D5W 1/2 NS 1,000 ML IV SCH (11:37)
--- NOTE | 2017-03-18 14:33 | HOSPPROG ---
Hospitalist Progress Note Assessment/Plan: 51 yo M with PMH of uncontrolled possibly undiagnosed DM found down by roommate # severe acidosis: in setting of significant metabolic derangements and likely hhs/dka. Improved now on vent. * Beta hydroxybutyrate is elevated * add D5 to be able to increase insulin to close gap # acute hypoxic respiratory failure: with LLL opacification but otherwise relatively normal cxr on personal review, continues on vent * Could extubate soon # shock: presumably hypovolemic shock in the setting of pancreatitis and "GI illness" with n/v/diarrhea preceding admission as well as HHS/DKA all contributing to profound losses. Procalcitonin mildly elevated but in setting of isaias. Continued on ertapenem for potential GI pathogens. Blood cultures pending, UA unremarkable. Continued on several pressors. * AP able to DC antibiotics soon # HHS/DKA: continue insulin drip, A1c 13.9 on admission # acute pancreatitis: with very elevated lipase and radiographic findings c/w pancreatitis, likely underlying his acute presentation in part as above. He does have a significant etoh history and this likely represent etoh pancreatitis. # AGMA/non gap acidosis: with likely DKA, lactic acidosis, renal failure and non gap acidosis related to GI losses. Ethylene glycol and methanol levels negative # ISAIAS: continued on CRRT, due to pre renal etiology as well as rhabdo presumably given FENa and shock. Remains oliguric. # rhabdomyloysis: ck > 29k on arrival in the setting of being down # hypothermia: re warmed # electrolyte abnormalities: repleting as needed # IP status, critically ill, intubated, on pressor support in ICU Care plan reviewed with Dr. Oropeza and multidisciplinary care team on rounds. Subjective: No new events. Objective: Vital Signs Temp Pulse Resp BP Pulse Ox 37.9 C 66 32 H 126/69 H 100 03/18/17 14:00 03/18/17 14:00 03/18/17 14:00 03/18/17 14:00 03/18/17 14:00 Microbiology 03/17/17 16:15 - Final Sputum, Induced/Suctioned Laboratory Results 03/18/17 04:40 03/18/17 04:40 03/17/17 03/18/17 03/19/17 05:59 05:59 05:59 Intake Total 7240 5018.8 3.6 Output Total 320 789 30 Balance 6920 4229.8 -26.4 PT 13.6 SEC (12.0-15.0) 03/18/17 04:40 INR 1.02 (0.83-1.16) 03/18/17 04:40 Discussed with pulmonology - Physical Exam Constitutional: no apparent distress, appears nourished, not in pain Eyes: anicteric sclera, EOMI Cardiovascular: regular rate and rhythym, no murmur, rub, or gallop Respiratory: no respiratory distress, no rales or rhonchi, clear to auscultation Gastrointestinal: normoactive bowel sounds, soft, non-tender abdomen, no palpable masses Neurologic: other (Response to commands) Psychiatric: interacting appropriately ICD10 Worksheet Patient Problems: Problems Problem Status Onset Acute kidney failure with tubular necrosis Acute
[2017-03-18] MEDS: INSULIN REGULAR HUMAN 100 UNIT/ML SC SCH ×2 (14:45→17:21)
[2017-03-18] MEDS ORDERED: ALTEPLASE 2 MG VIAL ONE (15:00)
[2017-03-18] MEDS ORDERED: INSULIN GLARGINE 100 UNITS/ML SYRINGE SC SCH ×2 (15:15→15:47)
[2017-03-18] MEDS ORDERED: ALTEPLASE 2 MG VIAL IVP ONE (15:15)
[2017-03-18] MEDS: fentaNYL/NACL 100 ML IV SCH (15:41)
--- NOTE | 2017-03-18 15:47 | ASMTCMCOM ---
CM Note CM Note Notes: Patient continues on the vent, c-pap trials possible extubation today? Financial Services unable to check ins until patient off the vent.CM to follow for possible discharge needs. Date Signed: 03/18/2017 03:46 PM Electronically Signed By:Joann Chaudhari LCSW
[2017-03-18] MEDS ORDERED: INSULIN GLARGINE 100 UNITS/ML SYRINGE SC ONE (16:15)
[2017-03-18 19:31] LABS: HEPARIN INDUCED ANTIBODY Negative (Negative); HEPARIN-PF4 IgG ANTIBODY ELISA < 0.075 OD (<0.400)
[2017-03-18 22:39] LABS: HEMATOCRIT 23.1 % (40.0-51.0); HEMOGLOBIN 8.1 g/dL (13.7-17.5); MEAN CELL HEMOGLOBIN 30.9 pg (27.9-34.1); MEAN CELL HEMOGLOBIN CONCENTR. 35.1 g/dL (32.4-36.7); MEAN CELL VOLUME 88.2 fL (81.5-99.8); RED BLOOD CELL COUNT 2.62 10^6/uL (4.40-6.38); RED CELL DISTRIBUTION WIDTH 14.4 % (11.5-15.2)
[2017-03-18 22:56] LABS: INR 0.93 (0.83-1.16); PROTIME(PATIENT) 12.7 SEC (12.0-15.0)
[2017-03-18 22:57] LABS: APTT 28.9 SEC (23.0-38.0)
[2017-03-19] MEDS: CHLORHEXIDINE GLUCONATE 15 ML UDL PO SCH ×3 (01:14→19:59)
[2017-03-19] MEDS: HEPARIN 5,000 UNIT/0.5 ML SYR SC SCH ×3 (01:14→12:13)
[2017-03-19] MEDS: ERTAPENEM 1 GM VIAL IVP SCH ×2 (01:28→16:18)
[2017-03-19] MEDS: INSULIN REGULAR HUMAN 100 UNIT/ML SC SCH ×7 (01:36→16:23)
[2017-03-19] MEDS: DEXMEDETOMIDINE IN 0.9 % NACL 100 ML IV SCH (05:25)
[2017-03-19 05:46] LABS: ABSOLUTE NRBC COUNT 0.02 10^3/uL (0-0.01); ADD DIFF? YES; ATYPICAL LYMPHOCYTE FLAG 60 (0-99); BASE EXCESS -3.8 mEq/L (-2.5-2.5); BICARBONATE 19 mEq/L (22-26); FRAGMENT RBC FLAG 0 (0-99); HEMATOCRIT 19.4 % (40.0-51.0); LIPEMIA HEMOLYSIS FLAG 90 (0-99); MEAN CELL HEMOGLOBIN 31.2 pg (27.9-34.1); MEAN CELL HEMOGLOBIN CONCENTR. 35.1 g/dL (32.4-36.7); MEAN PLATELET VOLUME 11.1 fL (8.7-11.7); MEASURED OXYGEN SATURATION 98 % (92-95); NRBC-AUTO% 0.1 % (0.0-0.2); PCO2 33 mmHg (34-38); PLATELET CLUMPS FLAG 0 (0-99); PLATELET COUNT 128 10^3/uL (150-400); PO2 121 mmHg (65-75); RED BLOOD CELL COUNT 2.18 10^6/uL (4.40-6.38); RED CELL DISTRIBUTION WIDTH 14.4 % (11.5-15.2); TCO2 20 mEq/L (23-27)
[2017-03-19 05:47] LABS: SIMV YES
[2017-03-19 05:48] LABS: END TIDAL CO2 37; O2 CONCENTRATIION 40 % (0-100); P/F RATIO 303 RATIO; PATIENT RATE 26; PRESSURE SUPPORT 7
[2017-03-19 05:50] LABS: ADD MORPH? NO; ADD SCAN? NO; HEMOGLOBIN 6.8 g/dL (13.7-17.5); LEFT SHIFT FLG 120 (0-99)
[2017-03-19 06:05] LABS: ALBUMIN 2.2 g/dL (3.5-5.0); ANION GAP 15 mEq/L (8-16); CALCIUM 7.6 mg/dL (8.5-10.4); CARBON DIOXIDE 21 mEq/l (22-31); CHLORIDE 99 mEq/L (97-110); CREATININE 3.6 mg/dL (0.7-1.3); GLOMERULAR FILTRATION RATE 18; GLUCOSE 316 mg/dL (70-100); POTASSIUM 3.3 mEq/L (3.5-5.2); SODIUM 135 mEq/L (134-144)
[2017-03-19 06:06] LABS: INR 0.98 (0.83-1.16); PROTIME(PATIENT) 13.2 SEC (12.0-15.0)
[2017-03-19 06:07] LABS: APTT 32.5 SEC (23.0-38.0)
[2017-03-19 06:48] LABS: HYPOCHROMIA 1+; MICROCYTES 1+; PLATELET ESTIMATE DECREASED (ADEQ)
[2017-03-19] MEDS: PANTOPRAZOLE SODIUM 40 MG VIAL IVP SCH (08:36)
--- NOTE | 2017-03-19 09:52 | PDINTPN ---
Java Lead Architect Progress Note Assessment/Plan: Assessment: 51 M with history of EtOH presumably in remission and possible DM (no PCP) found down by his roommate who apparently stepped over him and returned several hours later to find him minimally responsive. On arrival to the ED he was awake but severely hypothermic, hypotensive, and acidotic with a pH of 6.8, glucose > 1000, hypocalcemia, ISAIAS, rhabdomyolysis, and severely elevated lipase. The etiology is unclear as the patient was intubated for airway protection. On arrival to the ICU he was very unstable, but had a central line placed as well as art line and HD catheter. CRRT was delayed for unclear reasons, but eventually his metabolic disturbances were better controlled with improvement in hemodynamics. * Altered MS- Now normalizing * Hypotension- probably a function of severe acidosis and hypovolemia as he has responded to large volume challenges. He reportedly did not have diarrhea, N/V but did have "the worst GI bug of his life" and has not taken in PO lately. Off NE since 03/18, BP OK * Acute respiratory failure with hypoxemia-He's doing well on CPAP; His VE is high but improved, likely due to improved metabolic acidosis. * Pancreatitis- his CT supports the diagnosis and rules out necrotizing pancreatitis or abdominal bleeding. His lipase has likely been cleared by CRRT. Symptomatically improved * Transaminitis- likely related to shock liver, and no evidence of obstructive physiology (eg gallstones). Hep studies negative * ISAIAS with rhabdomyolysis and refractory acidosis. Adjustments per renal and appreciate excellent assistance.Still oliguric, on HD with elevated Cr. * DM- his elevated HgbA1c suggests untreated DM and he will likely require longterm insulin. His BG is currently controlled on SSI, and Lantus just added. * Acid-base- Improved, but today he has worsening AG Metabolic acidosis. Lactate normal. ISAIAS could contribute, but I'm also concerned that he had DKA 03/18 with widening AG metabolic acidosis and elevated b-hydroxybutyrate. AG now closed with starting PO, D5, and Lantus. * Thrombocytopenia- his platelets have dropped significantly for unclear reasons. Low but improving. Off heparin, HIT antibody pending. * Anemia- no clear signs of active bleeding and may be dilutional given 12 liters positive in last [address] Keep hgb >7 * FEN- No nutrition * DVT prophylaxis- SCDs, GI= changed pepcid to protonix for low chance of platelet involvement Plan: Increase Lantus. Will continue frequent SSI checks. Stop Fentanyl, Precedex. Extubate. If able to take PO, will stop D5. Recheck Lipase, LFTs 03/19/17 09:53 03/19/17 09:57 Subjective: Feels OK, alert on vent, no pain, dyspnea. Objective: Vital Signs Temp Pulse Resp BP Pulse Ox 37.8 C 64 26 H 121/73 H 100 03/19/17 08:00 03/19/17 08:30 03/19/17 08:30 03/19/17 08:00 03/19/17 08:30 Microbiology 03/17/17 16:15 - Final Sputum, Induced/Suctioned Laboratory Results 03/19/17 05:30 03/19/17 05:30 03/18/17 03/19/17 03/20/17 05:59 05:59 05:59 Intake Total 5018.8 2513.8 Output Total 789 186 Balance 4229.8 2327.8 PT 13.2 SEC (12.0-15.0) 03/19/17 05:30 INR 0.98 (0.83-1.16) 03/19/17 05:30 Physical Exam - Physical Exam General Appearance: alert, no apparent distress EENT: normal ENT inspection Neck: normal inspection Respiratory: lungs clear, normal breath sounds Cardiac/Chest: regular rate, rhythm, edema (trace) Abdomen: normal bowel sounds, non-tender, soft Skin: normal color, warm/dry Extremities: normal inspection Neuro/Psych: no motor/sensory deficits, alert, normal mood/affect ICD10 Worksheet Patient Problems: Problems Problem Status Onset Acute kidney failure with tubular necrosis Acute
[2017-03-19 11:03] LABS: ALBUMIN 2.2 g/dL (3.5-5.0); BILIRUBIN,TOTAL 0.4 mg/dL (0.1-1.4); BILIRUBIN-CONJUGATED 0.4 mg/dL (0.0-0.5); TOTAL PROTEIN 4.4 g/dL (6.3-8.2)
--- NOTE | 2017-03-19 11:12 | SOAPPROG ---
SOAP Progress Note Assessment/Plan: Assessment: 1. ISAIAS Remains oliguric. HD today, then remove groin catheter. Will not schedule HD tomorrow, but suspect he will need additional treatments later in week. Would have IR guide 3 lumen HD cath into site of current R IJ CVC tomorrow. 2. IDDM/DKA/Pancreatitis Improving. AG closed. Acidosis better. 3. Extubated 4. Off pressors. Volume up, will uf with dialysis 5. Hypokalemia Will dialyze on 3K Plan: 03/19/17 11:09 Objective: Vital Signs Temp Pulse Resp BP Pulse Ox 37.8 C 69 24 H 134/78 H 100 03/19/17 08:00 03/19/17 10:00 03/19/17 10:00 03/19/17 10:00 03/19/17 10:00 Microbiology 03/17/17 16:15 - Final Sputum, Induced/Suctioned Laboratory Results 03/19/17 05:30 03/19/17 05:30 03/18/17 03/19/17 03/20/17 05:59 05:59 05:59 Intake Total 5018.8 2513.8 Output Total 789 186 Balance 4229.8 2327.8 PT 13.2 SEC (12.0-15.0) 03/19/17 05:30 INR 0.98 (0.83-1.16) 03/19/17 05:30 Physical Exam - Physical Exam General Appearance: no apparent distress Respiratory: crackles Cardiac/Chest: regular rate, rhythm Extremities: pedal edema Neuro/Psych: oriented x 3 ICD10 Worksheet Patient Problems: Problems Problem Status Onset Acute kidney failure with tubular necrosis Acute
--- NOTE | 2017-03-19 13:10 | HOSPPROG ---
Hospitalist Progress Note Assessment/Plan: 51 yo M with PMH of uncontrolled possibly undiagnosed DM found down by roommate # severe acidosis: in setting of significant metabolic derangements and likely hhs/dka. Improved now on vent. * Beta hydroxybutyrate was elevated yesterday - acidosis improved today * add D5 to be able to increase insulin to close gap # acute hypoxic respiratory failure: with LLL opacification but otherwise relatively normal cxr on personal review, continues on vent * Extubate today # anemia * probably had underlying anemia on presentation considering how dry he was * will check iron studies * will probably need GI workup at some point * follow h/h # shock: presumably hypovolemic shock in the setting of pancreatitis and "GI illness" with n/v/diarrhea preceding admission as well as HHS/DKA all contributing to profound losses. Procalcitonin mildly elevated but in setting of isaias. Continued on ertapenem for potential GI pathogens. Blood cultures pending, UA unremarkable. Continued on several pressors. * Would consider discontinuing antibiotics the next day or 2 # HHS/DKA: continue insulin drip, A1c 13.9 on admission # acute pancreatitis: with very elevated lipase and radiographic findings c/w pancreatitis, likely underlying his acute presentation in part as above. He does have a significant etoh history and this likely represent etoh pancreatitis. # AGMA/non gap acidosis: with likely DKA, lactic acidosis, renal failure and non gap acidosis related to GI losses. Ethylene glycol and methanol levels negative # ISAIAS: continued on CRRT, due to pre renal etiology as well as rhabdo presumably given FENa and shock. Remains oliguric. # rhabdomyloysis: ck > 29k on arrival in the setting of being down # hypothermia: re warmed # electrolyte abnormalities: repleting as needed # IP status, critically ill, intubated, on pressor support in ICU Care plan reviewed with Dr. Oropeza and multidisciplinary care team on rounds. Subjective: Ready to be extubated Objective: Vital Signs Temp Pulse Resp BP Pulse Ox 38 C 72 33 H 109/80 96 03/19/17 12:00 03/19/17 12:00 03/19/17 12:00 03/19/17 12:00 03/19/17 12:00 Microbiology 03/17/17 16:15 - Final Sputum, Induced/Suctioned Laboratory Results 03/19/17 05:30 03/19/17 05:30 03/18/17 03/19/17 03/20/17 05:59 05:59 05:59 Intake Total 5018.8 2513.8 Output Total 789 186 Balance 4229.8 2327.8 PT 13.2 SEC (12.0-15.0) 03/19/17 05:30 INR 0.98 (0.83-1.16) 03/19/17 05:30 - Physical Exam Constitutional: no apparent distress, appears nourished, not in pain Eyes: anicteric sclera, EOMI Ears, Nose, Mouth, Throat: moist mucous membranes, hearing normal Cardiovascular: regular rate and rhythym, no murmur, rub, or gallop Respiratory: no respiratory distress, no rales or rhonchi, clear to auscultation Gastrointestinal: normoactive bowel sounds, soft, non-tender abdomen, no palpable masses Skin: warm Neurologic: AAOx3 Psychiatric: interacting appropriately, not anxious, not encephalopathic, thought process linear ICD10 Worksheet Patient Problems: Problems Problem Status Onset Acute kidney failure with tubular necrosis Acute
[2017-03-19 14:47] LABS: POTASSIUM 3.2 mEq/L (3.5-5.2)
[2017-03-19] MEDS ORDERED: PANTOPRAZOLE SODIUM 80 MG in NS 100 ML IV SCH (15:00)
[2017-03-19 15:31] LABS: HEPATITIS Bs Ab QUANT <5.0 mIU/mL
[2017-03-19] MEDS: PANTOPRAZOLE SODIUM 80 MG in NS 100 ML IV SCH (15:31)
[2017-03-19] MEDS: INSULIN REGULAR HUMAN 100 UNIT in NS 100 ML IV SCH (15:31)
[2017-03-19] MEDS: D5W 1,000 ML IV SCH (15:31)
[2017-03-19 16:11] LABS: HEMATOCRIT 24.9 % (40.0-51.0); HEMOGLOBIN 8.9 g/dL (13.7-17.5)
[2017-03-19] MEDS ORDERED: ALTEPLASE 2 MG VIAL IVP PRN (16:13)
[2017-03-19 18:18] LABS: % SATURATION 14 % (20-55); TOTAL IRON BINDING CAPACITY 175 ug/dL (260-490)
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
[2017-03-20] MEDS: PANTOPRAZOLE SODIUM 80 MG in NS 100 ML IV SCH ×2 (00:09→08:33)
[2017-03-20] MEDS: INSULIN REGULAR HUMAN 100 UNIT/ML SC SCH ×2 (00:12→06:18)
[2017-03-20 04:42] LABS: ABSOLUTE NRBC COUNT 0.02 10^3/uL (0-0.01); ADD DIFF? YES; ADD MORPH? NO; FRAGMENT RBC FLAG 0 (0-99); HEMATOCRIT 24.3 % (40.0-51.0); HEMOGLOBIN 8.9 g/dL (13.7-17.5); LIPEMIA HEMOLYSIS FLAG 90 (0-99); MEAN CELL HEMOGLOBIN 32.1 pg (27.9-34.1); MEAN CELL HEMOGLOBIN CONCENTR. 36.6 g/dL (32.4-36.7); MEAN CELL VOLUME 87.7 fL (81.5-99.8); MEAN PLATELET VOLUME 11.4 fL (8.7-11.7); NRBC-AUTO% 0.1 % (0.0-0.2); PLATELET CLUMPS FLAG 0 (0-99); PLATELET COUNT 154 10^3/uL (150-400); RED BLOOD CELL COUNT 2.77 10^6/uL (4.40-6.38); RED CELL DISTRIBUTION WIDTH 14.1 % (11.5-15.2)
[2017-03-20 04:43] LABS: ADD SCAN? NO; ATYPICAL LYMPHOCYTE FLAG 100 (0-99); LEFT SHIFT FLG 140 (0-99)
[2017-03-20] MEDS: D5W 1/2 NS 1,000 ML IV SCH ×2 (04:45→23:37)
[2017-03-20 04:58] LABS: PLATELET ESTIMATE ADEQUATE (ADEQ)
[2017-03-20 05:03] LABS: ALBUMIN 2.3 g/dL (3.5-5.0); ANION GAP 11 mEq/L (8-16); CALCIUM 7.7 mg/dL (8.5-10.4); CARBON DIOXIDE 25 mEq/l (22-31); CHLORIDE 101 mEq/L (97-110); CREATININE 5.1 mg/dL (0.7-1.3); GLOMERULAR FILTRATION RATE 12; GLUCOSE 170 mg/dL (70-100); POTASSIUM 3.1 mEq/L (3.5-5.2); SODIUM 137 mEq/L (134-144)
[2017-03-20] MEDS ORDERED: NALOXONE HCL 0.4 MG/ML INJ IVP PRN (07:43)
[2017-03-20] MEDS ORDERED: FLUMAZENIL 0.5 MG/5 ML MDV IVP PRN (07:43)
[2017-03-20] MEDS ORDERED: MEPERIDINE 25 MG/ML SYR IVP PRN (07:43)
[2017-03-20] MEDS ORDERED: fentaNYL 100 MCG/2 ML INJ IVP PRN (07:43)
[2017-03-20] MEDS ORDERED: MIDAZOLAM 2 MG/2 ML VIAL IVP PRN (07:43)
[2017-03-20] MEDS ORDERED: NS 1,000 ML IV SCH (07:45)
[2017-03-20] MEDS ORDERED: HEPARIN 50,000 UNIT/10 ML VIAL ONE (08:43)
[2017-03-20] MEDS ORDERED: POTASSIUM Cl (KCl) 20 MEQ in NS 50 ML IV ONE (09:30)
[2017-03-20] MEDS ORDERED: POTASSIUM Cl (KCl) 100 ML IV SCH (09:30)
[2017-03-20] MEDS ORDERED: BENZOCAINE UNIT DOSE SPRAY HURRICAINE MM ONE (10:57)
[2017-03-20] MEDS ORDERED: PROPOFOL 200 MG/20 ML VIAL ONE (11:00)
[2017-03-20] MEDS: CHLORHEXIDINE GLUCONATE 15 ML UDL PO SCH (11:10)
--- NOTE | 2017-03-20 11:18 | PDANEPAE ---
ANE Past Medical History - Pulmonary History Hx Oxygen in Use at Home: No Hx Sleep Apnea: No Sleep Apnea Screening Result - Last Documented: Positive ANE Review of Systems Review of Systems: ANE Patient History - Allergies Allergies/Adverse Reactions: No Known Allergies Allergy (Unverified 03/15/17 00:19) - Home Medications Home Medications: Unobtainable 03/15/17 [Last Taken Unknown] - Smoking Hx Smoking Status: Unknown if ever smoked - Alcohol Use Alcohol Use: Occasionally ANE Labs/Vital Signs - Labs Result Diagrams: 03/20/17 04:00 03/20/17 04:00 - Vital Signs Blood Pressure: 146/82 Heart Rate: 70 Respiratory Rate: 27 O2 Sat (%): 89 Height: 187.96 cm Weight: 122.4 kg ANE Physical Exam - Airway Neck exam: increased neck circumference, short neck Mallampati Score: Class 2 Mouth exam: poor dentition, thomas - Pulmonary Pulmonary: reduced air movement, expiratory wheeze, respiratory distress - Cardiovascular Cardiovascular: regular rate and rhythym, no murmur, rub, or gallop - ASA Status ASA Status: IV ANE Anesthesia Plan Anesthesia Plan: MAC
--- NOTE | 2017-03-20 11:20 | POSTOPPROG ---
Post Op Note Date of Operation: 03/20/17 Surgeon: Gurdeep De Leon Anesthesiologist: Janice Anesthesia: Other (Specify) (MAC) Pre-op Diagnosis: melena, post hemorrhagic anemia Post-op Diagnosis: severe esophagitis, severe gastritis with clean based ulcers , sever duodeni Indication: melena, anemia Procedure: EGD with bx Findings: severe esophagitis, gastritis and duodenitis s/p bx, clean based ulcers Inf/Abcess present in the surg proc area at time of surgery?: No EBL: Minimal (few ml from bx) Total fluids administered: 50ml NS Complications: none immediate
--- NOTE | 2017-03-20 11:43 | POSTANESTH ---
Post Anesthetic Evaluation Cardiovascular Status: Normal, Stable, Similar to Pre-Op Cond Respiratory Status: Normal, Stable, Similar to Pre-op Cond. Level of Consciousness/Mental Status: Can Participate in Eval Pain Control: Adequate, Prn Tx Ordered Nausea/Vomiting Control: Adequate, Prn Tx Ordered Complications Possibly Related to Anesthesia: None Noted
--- NOTE | 2017-03-20 12:24 | GIREPORT ---
[facility] - Endoscopy Department Patient Name: Damino Jamil Procedure Date: 03/20/2017 10:41 AM Patient Type: Inpatient Attending MD/ ER Physician: Marixa Berg Procedure: Upper GI endoscopy Indications: Acute post hemorrhagic anemia, Melena Providers: Demond De Leon MD Medicines: Monitored Anesthesia Care Complications: No immediate complications. Estimated blood loss: Minimal. Description of Procedure: After obtaining informed consent, the endoscope was passed under direct vision. Throughout the procedure, the patient's blood pressure, pulse, and oxygen saturations were monitored continuously. The Endoscope was intro duced through the mouth, and advanced to the third part of duodenum. The uppe r GI endoscopy was accomplished without difficulty. The patient tolerated th e procedure well. Findings: The upper third of the esophagus was normal. LA Grade D (one or more mucosal breaks involving at least 75% of esopha geal circumference) esophagitis with no bleeding was found in the middle and lower thirds of the esophagus. Biopsies were taken with a cold forceps for histology. Estimated blood loss was minimal. Diffuse severe inflammation characterized by congestion (edema), erosio ns, friability, granularity and shallow ulcerations was found in the entire examined stomach. Biopsies were taken with a cold forceps for histology . Estimated blood loss was minimal. Diffuse severe inflammation characterized by congestion (edema), erosio ns, erythema, friability and granularity was found in the entire duodenum. Biopsies were taken with a cold forceps for histology. Estimated blood loss was minimal. The exam was otherwise without abnormality. Estimated Blood Loss: Estimated blood loss was minimal. Post Op Diagnosis: - Normal upper third of esophagus. - LA Grade D reflux esophagitis. Rule out Romero's esophagus. Biopsied . - Gastritis. Biopsied. - Duodenitis. Biopsied. - The examination was otherwise normal. Recommendation: - Await pathology results. - My office will call with the pathology result with 5-7 days. If you h ave not heard from my office by 12-14, do not assume the pathology is rosendo l, please call [phone] to get the pathology reults. - Follow an antireflux regimen. - Use Protonix (pantoprazole) 40 mg PO BID. - Repeat upper endoscopy in 3 months to check healing. - Add gastrin onto blood in lab. If < 200 rules out ZE syndrome - Advance diet as tolerated. - Return patient to ICU for ongoing care. - Thank you for allowing me to help in your patient's care. Do not hesi prater to call with any questions. Attending Participation: I personally performed the entire procedure. Haley Lagos M.D Demond De Leon MD 03/20/2017 12:24:35 PM This report has been signed electronicallyMathew MD Haley Number of Addenda: 0 Note Initiated On: 03/20/2017 10:41 AM [email or web address]
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
--- NOTE | 2017-03-20 13:16 | SOAPPROG ---
SOAP Progress Note Assessment/Plan: Assessment: ISAIAS, remains oliguric Gastritis Esophagitis Duodenitis Anemia: Hgb about 9 Acidosis: better hypotension: better Plan: HD today hopefully will begin to see renal recovery soon counseled patient about renal recovery follow Hgb Follow lytes vol and renal function 03/20/17 13:12 Subjective: back form upper endoscopy spirits good about to start HD denies cp sob nausea or vomiting appetite OK Objective: Vital Signs Temp Pulse Resp BP Pulse Ox 38.1 C 72 22 H 148/104 H 98 03/20/17 13:01 03/20/17 13:01 03/20/17 13:01 03/20/17 13:01 03/20/17 13:01 Microbiology 03/17/17 16:15 - Final Sputum, Induced/Suctioned Laboratory Results 03/20/17 04:00 03/20/17 10:40 03/19/17 03/20/17 03/21/17 05:59 05:59 05:59 Intake Total 2513.8 1888 240 Output Total 186 100 Balance 2327.8 1788 240 PT 13.2 SEC (12.0-15.0) 03/19/17 05:30 INR 0.98 (0.83-1.16) 03/19/17 05:30 Physical Exam - Physical Exam General Appearance: alert Respiratory: No rhonchi, No wheezing Cardiac/Chest: regular rate, rhythm, edema, No friction rub Abdomen: normal bowel sounds, non-tender, soft Skin: other (multiple bruises) Extremities: swelling Neuro/Psych: alert, normal mood/affect, oriented x 3 ICD10 Worksheet Patient Problems: Problems Problem Status Onset Acute kidney failure with tubular necrosis Acute
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
--- NOTE | 2017-03-20 14:12 | ASMTCMCOM ---
CM Note CM Note Notes: Financial services notified patient is able to communicate now. Patient going for dialysis today. Overall improvement. No recommendations from PT yet. D/C needs TBD. CM will follow. Date Signed: 03/20/2017 02:12 PM Electronically Signed By:Katie Mcmullen LCSW
[2017-03-20] MEDS: INSULIN GLARGINE 100 UNITS/ML SYRINGE SC SCH (14:53)
[2017-03-20] MEDS: INSULIN REGULAR HUMAN 100 UNIT in NS 100 ML IV SCH (15:21)
[2017-03-20] MEDS: ERTAPENEM 1 GM VIAL IVP SCH (17:59)
[2017-03-20] MEDS ORDERED: HEPARIN 10,000 UNIT/10 ML MDV ONE (18:53)
[2017-03-20] MEDS ORDERED: traZODone 50 MG TAB PO PRN (21:12)
[2017-03-20] MEDS: PANTOPRAZOLE SODIUM 40 MG TAB PO SCH (22:12)
[2017-03-21 04:27] LABS: ADD DIFF? YES; ADD MORPH? NO; FRAGMENT RBC FLAG 0 (0-99); HEMATOCRIT 25.6 % (40.0-51.0); HEMOGLOBIN 9.1 g/dL (13.7-17.5); LIPEMIA HEMOLYSIS FLAG 90 (0-99); MEAN CELL HEMOGLOBIN 31.3 pg (27.9-34.1); MEAN CELL HEMOGLOBIN CONCENTR. 35.5 g/dL (32.4-36.7); MEAN PLATELET VOLUME 11.4 fL (8.7-11.7); PLATELET CLUMPS FLAG 0 (0-99); PLATELET COUNT 214 10^3/uL (150-400); RED BLOOD CELL COUNT 2.91 10^6/uL (4.40-6.38); RED CELL DISTRIBUTION WIDTH 13.8 % (11.5-15.2)
[2017-03-21 04:42] LABS: ADD SCAN? NO; ATYPICAL LYMPHOCYTE FLAG 150 (0-99); LEFT SHIFT FLG 120 (0-99)
[2017-03-21 04:48] LABS: ANION GAP 7 mEq/L (8-16); CALCIUM 7.7 mg/dL (8.5-10.4); CARBON DIOXIDE 27 mEq/l (22-31); CHLORIDE 103 mEq/L (97-110); CREATININE 4.4 mg/dL (0.7-1.3); GLOMERULAR FILTRATION RATE 14; GLUCOSE 165 mg/dL (70-100); POTASSIUM 3.1 mEq/L (3.5-5.2); SODIUM 137 mEq/L (134-144)
[2017-03-21 05:57] LABS: PLATELET ESTIMATE ADEQUATE (ADEQ)
[2017-03-21] MEDS: INSULIN GLARGINE 100 UNITS/ML SYRINGE SC SCH (09:09)
[2017-03-21] MEDS: PANTOPRAZOLE SODIUM 40 MG TAB PO SCH ×2 (09:09→22:44)
[2017-03-21] MEDS ORDERED: D50W 25 GM/50 ML SYR IVP PRN (11:38)
--- NOTE | 2017-03-21 11:44 | HOSPPROG ---
Hospitalist Progress Note Assessment/Plan: 51 yo M with PMH of uncontrolled possibly undiagnosed DM found down by roommate. Admitted with DKA, AHRF (intubated), ISAIAS. Acute drop in Hgb requiring PRBC 1 unit. -EGD c/w esophagitis, gastritic, duodenitis, no active bleeding -Stable O2 needs -minimal urine output, but improving # severe acidosis: in setting of significant metabolic derangements and likely hhs/dka. resolved # acute hypoxic respiratory failure: with LLL opacification * Extubated on 03/20 * Still on Invanz # Acute blood loss anemia, s/p 1 unit prbc transfusion on 03/19 * EGD negative, c/w Esophagitis, Gastritis, Duodenitis * Protonix BID * F/u biopsies # shock: presumably hypovolemic shock in the setting of pancreatitis and "GI illness" with n/v/diarrhea preceding admission as well as HHS/DKA all contributing to profound losses. Procalcitonin mildly elevated but in setting of isaias. Continued on ertapenem for potential GI pathogens. # HHS/DKA:A1C 13.0 on admission # acute pancreatitis: with very elevated lipase and radiographic findings c/w pancreatitis, likely underlying his acute presentation in part as above. He does have a significant etoh history and this likely represent etoh pancreatitis. # AGMA/non gap acidosis, resolved: with likely DKA, lactic acidosis, renal failure and non gap acidosis related to GI losses. Ethylene glycol and methanol levels negative # ISAIAS: continued on CRRT, due to pre renal etiology as well as rhabdo presumably given FENa and shock. Remains oliguric. # rhabdomyloysis: ck > 29k on arrival in the setting of being down # hypothermia: re warmed # electrolyte abnormalities: repleting as needed Plan: -Stop Invanz -Insulin drip stopped, Lantus started. Will start ISS -Cont PPI BID -HD per Nephrology -Electrolytes per Nephrology -OK to make SDU -Hold Heparin -cont SCD's -OK to make med surg -Can hopefully remove Donohue soon Care plan d/w team on multidisciplinary care team on rounds. Subjective: Breathing is better. Better UOP, but still low. Denies Pain Objective: Vital Signs Temp Pulse Resp BP Pulse Ox 36.9 C 75 26 H 149/85 H 97 03/21/17 07:37 03/21/17 07:37 03/21/17 07:37 03/21/17 07:37 03/21/17 07:37 Microbiology 03/17/17 16:15 - Final Sputum, Induced/Suctioned Sputum Culture - Final Stenotrophomonas Maltophilia Hillary Albicans Staphylococcus Aureus Laboratory Results 03/21/17 04:15 03/21/17 04:15 03/20/17 03/21/17 03/22/17 05:59 05:59 05:59 Intake Total 1888 2032.6 Output Total 100 150 Balance 1788 1882.6 PT 13.2 SEC (12.0-15.0) 03/19/17 05:30 INR 0.98 (0.83-1.16) 03/19/17 05:30 - Time Spent With Patient Time Spent with Patient: greater than 35 minutes Time Spent with Patient: Greater than 35 minutes spent on this patients care, greater than 50% of time spent counseling, educating, and coordinating care regarding the above mentioned plan. - Physical Exam Constitutional: no apparent distress, appears nourished Eyes: PERRL, EOMI Ears, Nose, Mouth, Throat: moist mucous membranes, hearing normal Cardiovascular: regular rate and rhythym, No edema Respiratory: no respiratory distress, no rales or rhonchi, clear to auscultation Gastrointestinal: normoactive bowel sounds, soft, non-tender abdomen Skin: warm Neurologic: AAOx3 Psychiatric: interacting appropriately, not anxious, not encephalopathic ICD10 Worksheet Patient Problems: Problems Problem Status Onset Acute kidney failure with tubular necrosis Acute
[2017-03-21] MEDS: INSULIN LISPRO 100 UNIT/ML SC SCH ×3 (11:53→17:45)
[2017-03-21] MEDS: D5W 1,000 ML IV SCH (14:07)
--- NOTE | 2017-03-21 14:20 | SOAPPROG ---
SOAP Progress Note Assessment/Plan: Assessment: ISAIAS, remains oliguric Gastritis Esophagitis Duodenitis Anemia: Hgb about 9, stable Acidosis: better hypotension: better Moved to the floor today Plan: HD tomorrow hopefully will begin to see renal recovery soon, if not will need tunneled HD cath next week counseled patient about renal recovery follow Hgb Follow lytes vol and renal function 03/20/17 13:12 03/21/17 14:17 Subjective: Wants a cup of coffee, OK with me if OK with GI energy improving spirits good denies CP sob nausea abd pain or vomiting appetite improving Objective: Vital Signs Temp Pulse Resp BP Pulse Ox 37.2 C 80 32 H 144/94 H 100 03/21/17 12:03 03/21/17 12:03 03/21/17 12:03 03/21/17 12:03 03/21/17 12:03 Microbiology 03/17/17 16:15 - Final Sputum, Induced/Suctioned Sputum Culture - Final Stenotrophomonas Maltophilia Hillary Albicans Staphylococcus Aureus Laboratory Results 03/21/17 04:15 03/21/17 04:15 03/20/17 03/21/17 03/22/17 05:59 05:59 05:59 Intake Total 1888 2032.6 Output Total 100 150 Balance 1788 1882.6 PT 13.2 SEC (12.0-15.0) 03/19/17 05:30 INR 0.98 (0.83-1.16) 03/19/17 05:30 Physical Exam - Physical Exam General Appearance: alert Neck: supple Respiratory: rales, No rhonchi, No wheezing Cardiac/Chest: regular rate, rhythm, edema, No gallop, No friction rub Abdomen: normal bowel sounds, non-tender, soft Skin: other (several bruises) Extremities: swelling Neuro/Psych: alert, normal mood/affect, oriented x 3 ICD10 Worksheet Patient Problems: Problems Problem Status Onset Acute kidney failure with tubular necrosis Acute
--- NOTE | 2017-03-21 14:29 | SOAPPROG ---
[facility] Progress Note Assessment/Plan: Assessment:Plan: 1) UGI bleed from severe esophagitis, gastritis, and duodenitis, hb stable no furhter bleeding PPI BID for 8 weeks, then daily EGD in 3 months, routine colon screen can be at same time 2) Anemia - stab;e, no further bleeding will f/u bx and contact pt will sing off thank you 03/21/17 14:25 Subjective: CC- UGI bleed, post hemorrhagic anemia, diabetes, pt feeling better, transferred out of ICU no n/v Objective: Vital Signs Temp Pulse Resp BP Pulse Ox 37.2 C 80 32 H 144/94 H 100 03/21/17 12:03 03/21/17 12:03 03/21/17 12:03 03/21/17 12:03 03/21/17 12:03 Microbiology 03/17/17 16:15 - Final Sputum, Induced/Suctioned Sputum Culture - Final Stenotrophomonas Maltophilia Hillary Albicans Staphylococcus Aureus Laboratory Results 03/21/17 04:15 03/21/17 04:15 03/20/17 03/21/17 03/22/17 05:59 05:59 05:59 Intake Total 1888 2032.6 Output Total 100 150 Balance 1788 1882.6 PT 13.2 SEC (12.0-15.0) 03/19/17 05:30 INR 0.98 (0.83-1.16) 03/19/17 05:30 A+Ox3 CTA S1S2 +BS, soft, nt ICD10 Worksheet Patient Problems: Problems Problem Status Onset Acute kidney failure with tubular necrosis Acute
[2017-03-21] MEDS: BENZONATATE 100 MG CAP PO PRN (17:14)
[2017-03-21] MEDS: D5W 1/2 NS 1,000 ML IV SCH (17:31)
[2017-03-22 06:13] LABS: ADD DIFF? YES; ADD MORPH? NO; FRAGMENT RBC FLAG 0 (0-99); HEMATOCRIT 25.2 % (40.0-51.0); HEMOGLOBIN 8.6 g/dL (13.7-17.5); LEFT SHIFT FLG 80 (0-99); LIPEMIA HEMOLYSIS FLAG 90 (0-99); MEAN CELL HEMOGLOBIN 30.7 pg (27.9-34.1); MEAN CELL HEMOGLOBIN CONCENTR. 34.1 g/dL (32.4-36.7); MEAN PLATELET VOLUME 11.1 fL (8.7-11.7); PLATELET CLUMPS FLAG 20 (0-99); PLATELET COUNT 283 10^3/uL (150-400); RED CELL DISTRIBUTION WIDTH 13.4 % (11.5-15.2)
[2017-03-22 06:15] LABS: ADD SCAN? NO; ATYPICAL LYMPHOCYTE FLAG 140 (0-99)
[2017-03-22 06:51] LABS: MACROCYTES 1+; PLATELET ESTIMATE ADEQUATE (ADEQ); POLYCHROMASIA 1+
[2017-03-22 06:55] LABS: SCHISTOCYTES 1+
[2017-03-22 06:57] LABS: ANION GAP 16 mEq/L (8-16); CALCIUM 7.7 mg/dL (8.5-10.4); CARBON DIOXIDE 18 mEq/l (22-31); CHLORIDE 97 mEq/L (97-110); GLOMERULAR FILTRATION RATE 10; GLUCOSE 399 mg/dL (70-100); POTASSIUM 3.7 mEq/L (3.5-5.2); SODIUM 131 mEq/L (134-144)
[2017-03-22] MEDS: PANTOPRAZOLE SODIUM 40 MG TAB PO SCH ×2 (08:20→22:08)
[2017-03-22] MEDS: INSULIN LISPRO 100 UNIT/ML SC SCH ×4 (08:20→18:27)
[2017-03-22] MEDS: BENZONATATE 100 MG CAP PO PRN (09:36)
[2017-03-22] MEDS: INSULIN GLARGINE 100 UNITS/ML SYRINGE SC SCH ×2 (09:56→22:09)
--- NOTE | 2017-03-22 10:31 | SOAPPROG ---
SOAP Progress Note Assessment/Plan: Assessment/Plan: ISAIAS: presumed ATN. Pt is now off CRRT and on intermittent HD, remains oliguric. - Will do HD today. - Will continue to monitor for renal recovery and further HD needs. - If he does not open up over the weekend, will consider tunneled catheter placement early next week. - Avoid hypotension and nephrotoxins. Metabolic acidosis: will modulate on HD and continue to monitor. HTN: pt on no meds at this time, will continue to monitor for now. Subjective: No acute events overnight. Pt states he is feeling better, energy improving, walking some, no pain, no dyspnea, no swelling in legs. He thinks he might be starting to make more urine today, has 50ml currently in benjamin bag. Objective: Vital Signs Temp Pulse Resp BP Pulse Ox 36.8 C 84 22 H 159/105 H 94 03/22/17 07:32 03/22/17 07:32 03/22/17 07:32 03/22/17 07:32 03/22/17 07:32 Laboratory Results 03/22/17 05:45 03/22/17 05:45 03/21/17 03/22/17 03/23/17 05:59 05:59 05:59 Intake Total 2032.6 600 150 Output Total 150 150 150 Balance 1882.6 450 0 PT 13.2 SEC (12.0-15.0) 03/19/17 05:30 INR 0.98 (0.83-1.16) 03/19/17 05:30 General: alert and oriented, no acute distress Eyes: EOMI, PERRL OP: Clear CV: RRR Resp: nonlabored respirations, CTAB Abd: Soft, NT/ND Ext: trace edema BLE Neuro: CN II-XII grossly intact, no asterixis Psych: cooperative Access: RIJ cath ICD10 Worksheet Patient Problems: Problems Problem Status Onset Acute kidney failure with tubular necrosis Acute
[2017-03-22 13:16] LABS: GLUCOSE 567 mg/dL (70-100)
--- NOTE | 2017-03-22 14:34 | ASMTCMCOM ---
CM Note CM Note Notes: 03/22/2017 Case Management Note PT note on 03/21 states TBD if pt is safe for home d/c. PT was unable to assess pt on 03/22 d/t high blood sugars. Case Management d/c poc: TBD. Case Management will continue to follow pt progress with PT as d/c plan is created. Date Signed: 03/22/2017 02:34 PM Electronically Signed By:Tawnya Kim RN
--- NOTE | 2017-03-22 16:00 | HOSPPROG ---
Hospitalist Progress Note Assessment/Plan: 51 yo M with PMH of uncontrolled possibly undiagnosed DM found down by roommate. Admitted with DKA, AHRF (intubated), ISAIAS. Acute drop in Hgb requiring PRBC 1 unit. -EGD c/w esophagitis, gastritic, duodenitis, no active bleeding -Stable O2 needs -minimal urine output, but improving, still with Donohue in place -Hyperglycemia today. # severe acidosis: in setting of significant metabolic derangements and likely hhs/dka. resolved # acute hypoxic respiratory failure: with LLL opacification * Extubated on 03/20 * s/p Invanz * # Acute blood loss anemia, s/p 1 unit prbc transfusion on 03/19 * EGD negative, c/w Esophagitis, Gastritis, Duodenitis * Protonix BID x 8 weeks, then once daily. Repeat EGD in 3 months * F/u biopsies # shock: presumably hypovolemic shock: resolved # HHS/DKA:A1C 13.0 on admission #Hyperglycemia. # acute pancreatitis, resolved: with very elevated lipase and radiographic findings c/w pancreatitis, likely underlying his acute presentation in part as above. He does have a significant etoh history and this likely represent etoh pancreatitis. # AGMA/non gap acidosis, resolved: with likely DKA, lactic acidosis, renal failure and non gap acidosis related to GI losses. Ethylene glycol and methanol levels negative # ISAIAS: continued on CRRT, due to pre renal etiology as well as rhabdo presumably given FENa and shock. Remains oliguric. # rhabdomyloysis: ck > 29k on arrival in the setting of being down # hypothermia: re warmed # electrolyte abnormalities: repleting as needed Plan: -HD today -Remove Donohue if OK with Renal -Good oral intake, will stop IVF. D5 is likely contributing to hyperglycemia -Increase Lantus to 10 u BID -Cont PPI BID -Electrolytes per Nephrology -Hold Heparin -cont SCD's, consider Heparin tomorrow D/W nurse Subjective: feels better. Getting HD today. Discussed with nurse hyperglycemia. Glucose very elevated. Getting additional insulin now Objective: Vital Signs Temp Pulse Resp BP Pulse Ox 36.8 C 84 22 H 159/105 H 94 03/22/17 07:32 03/22/17 07:32 03/22/17 07:32 03/22/17 07:32 03/22/17 07:32 Laboratory Results 03/22/17 05:45 03/22/17 12:22 03/21/17 03/22/17 03/23/17 05:59 05:59 05:59 Intake Total 2032.6 600 150 Output Total 150 150 150 Balance 1882.6 450 0 PT 13.2 SEC (12.0-15.0) 03/19/17 05:30 INR 0.98 (0.83-1.16) 03/19/17 05:30 - Physical Exam Constitutional: no apparent distress Eyes: PERRL, EOMI Ears, Nose, Mouth, Throat: moist mucous membranes, hearing normal Cardiovascular: regular rate and rhythym, no murmur, rub, or gallop, No edema Respiratory: no respiratory distress, no rales or rhonchi Gastrointestinal: normoactive bowel sounds, soft, non-tender abdomen Skin: warm Neurologic: AAOx3 Psychiatric: interacting appropriately, not anxious, not encephalopathic Lymph, Heme, Immunologic: No petechiae ICD10 Worksheet Patient Problems: Problems Problem Status Onset Acute kidney failure with tubular necrosis Acute
[2017-03-22] MEDS ORDERED: INSULIN LISPRO 100 UNIT/ML SC ONE (16:30)
[2017-03-22] MEDS ORDERED: HEPARIN 50,000 UNIT/10 ML VIAL ONE (18:29)
[2017-03-22] MEDS: D5W 1/2 NS 1,000 ML IV SCH (22:10)
[2017-03-23 07:25] LABS: ANION GAP 10 mEq/L (8-16); CALCIUM 7.7 mg/dL (8.5-10.4); CARBON DIOXIDE 27 mEq/l (22-31); CHLORIDE 97 mEq/L (97-110); CREATININE 4.3 mg/dL (0.7-1.3); GLOMERULAR FILTRATION RATE 15; GLUCOSE 153 mg/dL (70-100); MAGNESIUM 1.8 mg/dL (1.6-2.3); POTASSIUM 3.4 mEq/L (3.5-5.2); SODIUM 134 mEq/L (134-144)
[2017-03-23 07:26] LABS: ADD DIFF? YES; ADD MORPH? NO; ADD SCAN? NO; ATYPICAL LYMPHOCYTE FLAG 70 (0-99); FRAGMENT RBC FLAG 0 (0-99); LEFT SHIFT FLG 40 (0-99); LIPEMIA HEMOLYSIS FLAG 90 (0-99); MEAN CELL VOLUME 88.5 fL (81.5-99.8); PLATELET CLUMPS FLAG 0 (0-99); RED CELL DISTRIBUTION WIDTH 13.2 % (11.5-15.2)
[2017-03-23 07:31] LABS: % IMMATURE GRANULYOCYTES 3.4 % (0.0-1.1); HEMATOCRIT 24.6 % (40.0-51.0); HEMOGLOBIN 8.7 g/dL (13.7-17.5); MEAN CELL HEMOGLOBIN 31.3 pg (27.9-34.1); MEAN CELL HEMOGLOBIN CONCENTR. 35.4 g/dL (32.4-36.7); MEAN PLATELET VOLUME 10.7 fL (8.7-11.7); PLATELET COUNT 354 10^3/uL (150-400); RED BLOOD CELL COUNT 2.78 10^6/uL (4.40-6.38)
[2017-03-23 07:32] LABS: ABSOLUTE IMMATURE GRANULOCYTES 0.63 10^3/uL (0.00-0.10)
[2017-03-23] MEDS: BENZONATATE 100 MG CAP PO PRN ×2 (07:53→20:31)
[2017-03-23] MEDS: PANTOPRAZOLE SODIUM 40 MG TAB PO SCH ×2 (07:53→20:19)
[2017-03-23] MEDS: INSULIN LISPRO 100 UNIT/ML SC SCH ×3 (07:58→17:08)
[2017-03-23] MEDS: INSULIN GLARGINE 100 UNITS/ML SYRINGE SC SCH ×2 (08:00→20:20)
[2017-03-23 08:35] LABS: PLATELET ESTIMATE ADEQUATE (ADEQ); POLYCHROMASIA 1+; SCHISTOCYTES 1+
--- NOTE | 2017-03-23 12:10 | HOSPPROG ---
Hospitalist Progress Note Assessment/Plan: 51 yo M with PMH of uncontrolled possibly undiagnosed DM found down by roommate. Admitted with DKA, AHRF (intubated), ISAIAS. Acute drop in Hgb requiring PRBC 1 unit. -EGD c/w esophagitis, gastritic, duodenitis, no active bleeding. Hgb stable -Stable O2 needs -minimal urine output, but improving, benjamin has been removed -Hyperglycemia is improving today since increasing lantus # severe acidosis: in setting of significant metabolic derangements and likely hhs/dka. resolved # acute hypoxic respiratory failure: with LLL opacification * Extubated on 03/20 * s/p Invanz # Acute blood loss anemia, s/p 1 unit prbc transfusion on 03/19 * EGD negative, c/w Esophagitis, Gastritis, Duodenitis * Protonix BID x 8 weeks, then once daily. Repeat EGD in 3 months * F/u biopsies # shock: presumably hypovolemic shock: resolved # HHS/DKA:A1C 13.0 on admission #Hyperglycemia. # acute pancreatitis, resolved: with very elevated lipase and radiographic findings c/w pancreatitis, likely underlying his acute presentation in part as above. He does have a significant etoh history and this likely represent etoh pancreatitis. # AGMA/non gap acidosis, resolved: with likely DKA, lactic acidosis, renal failure and non gap acidosis related to GI losses. Ethylene glycol and methanol levels negative # ISAIAS: continued on CRRT, due to pre renal etiology as well as rhabdo presumably given FENa and shock. Remains oliguric. # rhabdomyloysis: ck > 29k on arrival in the setting of being down # hypothermia: re warmed # electrolyte abnormalities: repleting as needed #Weakness and Deconditioning: PT/OT following Plan: -I have stopped his D5 1/2 NS as it was likely contributing to his hyperglycemia. Nurse and patient report lots of oral intake today. Renal to see today and if IVF needed, please reorder w/o D5 -HD per nephrology -No further need for abx -Benjamin has been removed -Cont Lantus 10 units bid, ISS -Cont PPI BID -PT/OT -Cont to hold Heparin for now, Cont SCD's D/W nurse Dispo: keep inpt, monitor renal recovery, monitor Hgb. Subjective: Feesl better. Somewhat more Urine output, but still minimal. No CP or SOB Objective: Vital Signs Temp Pulse Resp BP Pulse Ox 36.8 C 84 18 140/87 H 93 03/23/17 08:00 03/23/17 08:00 03/23/17 08:00 03/23/17 08:00 03/23/17 08:00 Laboratory Results 03/23/17 06:00 03/23/17 06:00 03/22/17 03/23/17 03/24/17 05:59 05:59 05:59 Intake Total 600 1250 Output Total 150 420 Balance 450 830 PT 13.2 SEC (12.0-15.0) 03/19/17 05:30 INR 0.98 (0.83-1.16) 03/19/17 05:30 - Physical Exam Constitutional: no apparent distress Eyes: PERRL Ears, Nose, Mouth, Throat: moist mucous membranes, hearing normal Cardiovascular: regular rate and rhythym, No edema Respiratory: no respiratory distress, no rales or rhonchi Gastrointestinal: normoactive bowel sounds, soft, non-tender abdomen Skin: warm Musculoskeletal: generalized weakness Neurologic: AAOx3 Psychiatric: interacting appropriately, not anxious, not encephalopathic, thought process linear ICD10 Worksheet Patient Problems: Problems Problem Status Onset Acute kidney failure with tubular necrosis Acute
--- NOTE | 2017-03-23 17:02 | ASMTCMCOM ---
CM Note CM Note Notes: Spoke w/RN, pt will get dialysis here on Saturday, dc needs unclear. Pt lives with a roomate, RAMÍREZ w/f for needs. Date Signed: 03/23/2017 05:01 PM Electronically Signed By:Trisha Lawton RN
--- NOTE | 2017-03-23 17:30 | SOAPPROG ---
SOAP Progress Note Assessment/Plan: Assessment: ISAIAS, UOP picking up! Gastritis Esophagitis Duodenitis Anemia: Hgb about 9, stable Acidosis: better hypotension: better, now BP actually a bit high, will watch closely Plan: HD Saturday unless kidney function is improving hopefully will begin to see renal recovery soon, if not will need tunneled HD cath next week counseled patient about renal recovery follow Hgb Follow lytes vol and renal function 03/20/17 13:12 03/21/17 14:17 03/23/17 17:27 Subjective: UOP increasing spirits good energy improving no cp sob nausea or vomiting appetite good sleeping well Objective: Vital Signs Temp Pulse Resp BP Pulse Ox 36.9 C 80 18 164/99 H 96 03/23/17 16:00 03/23/17 16:00 03/23/17 16:00 03/23/17 16:00 03/23/17 16:00 Laboratory Results 03/23/17 06:00 03/23/17 06:00 03/22/17 03/23/17 03/24/17 05:59 05:59 05:59 Intake Total 600 1250 3250 Output Total 150 420 250 Balance 606 450 4646 PT 13.2 SEC (12.0-15.0) 03/19/17 05:30 INR 0.98 (0.83-1.16) 03/19/17 05:30 Physical Exam - Physical Exam General Appearance: alert Respiratory: No rhonchi, No wheezing Cardiac/Chest: regular rate, rhythm, edema (trace), No friction rub Abdomen: normal bowel sounds, non-tender, soft Extremities: swelling Neuro/Psych: alert, normal mood/affect, oriented x 3 ICD10 Worksheet Patient Problems: Problems Problem Status Onset Acute kidney failure with tubular necrosis Acute
[2017-03-24 05:03] LABS: % IMMATURE GRANULYOCYTES 1.6 % (0.0-1.1); ABSOLUTE IMMATURE GRANULOCYTES 0.26 10^3/uL (0.00-0.10); ADD DIFF? NO; ADD MORPH? NO; ADD SCAN? NO; ATYPICAL LYMPHOCYTE FLAG 50 (0-99); FRAGMENT RBC FLAG 0 (0-99); HEMATOCRIT 25.4 % (40.0-51.0); HEMOGLOBIN 8.9 g/dL (13.7-17.5); LEFT SHIFT FLG 20 (0-99); LIPEMIA HEMOLYSIS FLAG 90 (0-99); MEAN CELL HEMOGLOBIN 30.8 pg (27.9-34.1); MEAN CELL VOLUME 87.9 fL (81.5-99.8); MEAN PLATELET VOLUME 10.3 fL (8.7-11.7); PLATELET CLUMPS FLAG 0 (0-99); PLATELET COUNT 402 10^3/uL (150-400); RED BLOOD CELL COUNT 2.89 10^6/uL (4.40-6.38); RED CELL DISTRIBUTION WIDTH 13.2 % (11.5-15.2)
[2017-03-24 05:14] LABS: ANION GAP 10 mEq/L (8-16); CALCIUM 7.6 mg/dL (8.5-10.4); CARBON DIOXIDE 24 mEq/l (22-31); CHLORIDE 99 mEq/L (97-110); CREATININE 4.6 mg/dL (0.7-1.3); GLOMERULAR FILTRATION RATE 14; GLUCOSE 231 mg/dL (70-100); POTASSIUM 3.3 mEq/L (3.5-5.2); SODIUM 133 mEq/L (134-144)
[2017-03-24] MEDS: INSULIN LISPRO 100 UNIT/ML SC SCH ×3 (09:40→18:10)
[2017-03-24] MEDS: INSULIN GLARGINE 100 UNITS/ML SYRINGE SC SCH ×2 (09:40→20:57)
[2017-03-24] MEDS: PANTOPRAZOLE SODIUM 40 MG TAB PO SCH ×2 (09:41→20:57)
[2017-03-24] MEDS: BENZONATATE 100 MG CAP PO PRN (09:47)
--- NOTE | 2017-03-24 10:39 | SOAPPROG ---
SOAP Progress Note Assessment/Plan: Assessment: ISAIAS, UOP picking up! 600 cc yesterday, good UOP this AM Gastritis Esophagitis Duodenitis Anemia: Hgb about 9, stable Acidosis: resolved hypotension: better, now BP actually a bit high, will start Amlodipine Plan: Assess need for HD Saturday may be able to hold off hopefully seeing renal recovery, rise of creatinine is slowing nicely. will continue to follow counseled patient about renal recovery follow Hgb Follow lytes vol and renal function 03/20/17 13:12 03/21/17 14:17 03/23/17 17:27 03/24/17 10:34 Subjective: spirits good appetite and energy are much improved wants to go home, I've explained that we can't as we have not determined need for longer term HD needs, yet. denies cp, sob, nausea or vomiting getting up and around, walking in the halls Objective: Vital Signs Temp Pulse Resp BP Pulse Ox 36.7 C 82 18 153/103 H 94 03/24/17 07:41 03/24/17 07:41 03/24/17 07:41 03/24/17 07:41 03/24/17 07:41 Laboratory Results 03/24/17 04:45 03/24/17 04:45 03/23/17 03/24/17 03/25/17 05:59 05:59 05:59 Intake Total 1250 3350 Output Total 420 600 Balance 830 2750 PT 13.2 SEC (12.0-15.0) 03/19/17 05:30 INR 0.98 (0.83-1.16) 03/19/17 05:30 Physical Exam - Physical Exam General Appearance: alert Respiratory: No rhonchi, No wheezing Cardiac/Chest: regular rate, rhythm, edema, No friction rub Abdomen: normal bowel sounds, non-tender, soft Extremities: swelling Neuro/Psych: alert, normal mood/affect, oriented x 3 ICD10 Worksheet Patient Problems: Problems Problem Status Onset Acute kidney failure with tubular necrosis Acute
[2017-03-24] MEDS: amLODIPine BESYLATE 5 MG TAB PO SCH (10:58)
--- NOTE | 2017-03-24 15:04 | HOSPPROG ---
Hospitalist Progress Note Assessment/Plan: 51 yo M with PMH of uncontrolled possibly undiagnosed DM found down by roommate. Admitted with DKA, AHRF (intubated), ISAIAS. Acute drop in Hgb requiring PRBC 1 unit. -EGD c/w esophagitis, gastritic, duodenitis, no active bleeding. Hgb stable -Stable O2 needs -UOP has picked up -still with hyperglycemia # severe acidosis: in setting of significant metabolic derangements and likely hhs/dka. resolved # acute hypoxic respiratory failure: with LLL opacification * Extubated on 03/20 * s/p Invanz # Acute blood loss anemia, s/p 1 unit prbc transfusion on 03/19 * EGD negative, c/w Esophagitis, Gastritis, Duodenitis * Protonix BID x 8 weeks, then once daily. Repeat EGD in 3 months * F/u biopsies # shock: presumably hypovolemic shock: resolved # HHS/DKA:A1C 13.0 on admission #Hyperglycemia. # acute pancreatitis, resolved: with very elevated lipase and radiographic findings c/w pancreatitis, likely underlying his acute presentation in part as above. He does have a significant etoh history and this likely represent etoh pancreatitis. # AGMA/non gap acidosis, resolved: with likely DKA, lactic acidosis, renal failure and non gap acidosis related to GI losses. Ethylene glycol and methanol levels negative # ISAIAS: continued on CRRT, due to pre renal etiology as well as rhabdo presumably given FENa and shock. UOP has picked up # rhabdomyloysis: ck > 29k on arrival in the setting of being down # hypothermia: re warmed # electrolyte abnormalities: repleting as needed #Weakness and Deconditioning: PT/OT following Plan: -Increase Lantus -HD per nephrology -No further need for abx -Donohue has been removed -Cont PPI BID -PT/OT -Cont to hold Heparin for now, Cont SCD's D/W nurse Dispo: keep inpt, monitor renal recovery, monitor Hgb. Subjective: feels better. urine output has picked up. No resp complaints. glucose is elevated. Objective: Vital Signs Temp Pulse Resp BP Pulse Ox 36.7 C 82 18 161/108 H 94 03/24/17 07:41 03/24/17 07:41 03/24/17 07:41 03/24/17 10:58 03/24/17 07:41 Laboratory Results 03/24/17 04:45 03/24/17 04:45 03/23/17 03/24/17 03/25/17 05:59 05:59 05:59 Intake Total 1250 3350 Output Total 420 600 300 Balance 830 2750 -300 PT 13.2 SEC (12.0-15.0) 03/19/17 05:30 INR 0.98 (0.83-1.16) 03/19/17 05:30 - Physical Exam Constitutional: no apparent distress Eyes: PERRL, EOMI Ears, Nose, Mouth, Throat: moist mucous membranes, hearing normal Cardiovascular: regular rate and rhythym Respiratory: no respiratory distress, no rales or rhonchi, clear to auscultation Gastrointestinal: normoactive bowel sounds, soft, non-tender abdomen Skin: warm Musculoskeletal: generalized weakness Neurologic: AAOx3 Psychiatric: interacting appropriately, not anxious, not encephalopathic ICD10 Worksheet Patient Problems: Problems Problem Status Onset Acute kidney failure with tubular necrosis Acute
[2017-03-25 04:26] VITALS: TEMP 97.7; O2SAT 99
[2017-03-25 04:36] LABS: % IMMATURE GRANULYOCYTES 1.3 % (0.0-1.1); ABSOLUTE IMMATURE GRANULOCYTES 0.17 10^3/uL (0.00-0.10); ADD DIFF? NO; ADD MORPH? NO; ADD SCAN? NO; ATYPICAL LYMPHOCYTE FLAG 70 (0-99); FRAGMENT RBC FLAG 0 (0-99); HEMATOCRIT 25.7 % (40.0-51.0); HEMOGLOBIN 8.8 g/dL (13.7-17.5); LEFT SHIFT FLG 10 (0-99); LIPEMIA HEMOLYSIS FLAG 90 (0-99); MEAN CELL HEMOGLOBIN 30.3 pg (27.9-34.1); MEAN CELL HEMOGLOBIN CONCENTR. 34.2 g/dL (32.4-36.7); MEAN CELL VOLUME 88.6 fL (81.5-99.8); MEAN PLATELET VOLUME 10.1 fL (8.7-11.7); PLATELET CLUMPS FLAG 0 (0-99); PLATELET COUNT 412 10^3/uL (150-400); RED CELL DISTRIBUTION WIDTH 12.9 % (11.5-15.2)
[2017-03-25 04:53] LABS: ALBUMIN 2.2 g/dL (3.5-5.0); ANION GAP 9 mEq/L (8-16); CALCIUM 7.6 mg/dL (8.5-10.4); CARBON DIOXIDE 24 mEq/l (22-31); CHLORIDE 100 mEq/L (97-110); GLOMERULAR FILTRATION RATE 16; GLUCOSE 283 mg/dL (70-100); POTASSIUM 3.5 mEq/L (3.5-5.2); SODIUM 133 mEq/L (134-144)
[2017-03-25 07:46] VITALS: BP 171/109; PULSE 83; RESP 20
[2017-03-25] MEDS: INSULIN LISPRO 100 UNIT/ML SC SCH ×2 (08:12→11:25)
[2017-03-25] MEDS: PANTOPRAZOLE SODIUM 40 MG TAB PO SCH (08:13)
[2017-03-25] MEDS: INSULIN GLARGINE 100 UNITS/ML SYRINGE SC SCH (08:13)
[2017-03-25] MEDS: amLODIPine BESYLATE 5 MG TAB PO SCH (08:13)
--- NOTE | 2017-03-25 09:56 | PDIAF ---
- Diagnosis Diagnosis: Diabetes / ISAIAS Code Status: Full Code - Medication Management Discharge Medications: Medications to Continue on Transfer Insulin Glargine [Lantus 100 UNITS/ML (*)] 12 units SC BID #1 btl 03/25/17 [ Last Taken Unknown] Pantoprazole Sodium [Protonix 40mg (*)] 40 mg PO BID #60 tab 03/25/17 [Last Taken Unknown] Syringe,Insulin,Needless 1 ml [Easy Touch Luer Lock Insulin] 1 each MC BID #60 disp.syrin 03/25/17 [Last Taken Unknown] amLODIPine BESYLATE [Norvasc 5 mg (*)] 5 mg PO DAILY #30 tab 03/25/17 [Last Taken Unknown] Discharge Medications: Refer to the Discharge Home Medication list for PRN reason. - Orders Services needed: Home Care, Registered Nurse Home Care Face to Face: I certify that this patient was under my care and that I had the required [id number]-so-trfv encounter meeting the encounter requirements on the discharge day. My findings support the fact that the patient is homebound as defined in Home Care Face to Face Continued: CMS Chapter 7 Medicare Benefits Manual 30.1.1 , The condition of the patient is such that there exists a normal inability to leave home and consequently, leaving home would require a considerable and taxing effort. Diet Recommendation: ADA 2200 consistent carb Diet Texture: Regular Texture Diet - Follow Up Care Current Providers and Referrals: Jeni Chavez MD [Medical Doctor] - 03/27/17 12:30 pm (New patient appointment Please bring d/c paperwork, all meds, photo ID, insurance card and co pay.) Patient,NotPresent [Unknown] - As per Instructions
--- NOTE | 2017-03-25 10:01 | SOAPPROG ---
[facility] Progress Note Assessment/Plan: Assessment:Plan: ARF -due to ATN -now with good UO and decreasing creatinine -no further Hd needed -line removed -hemostasis obtained -okay for discharge with frequent labs -I have asked him to get labs every Sat and until his recovery is complete -first labs on 03/28/17 -f/u in Nephrology office in two weeks -contact information given to patient -lab slip given to patient Access-as above Dispo-as above 03/25/17 09:58 Subjective: stable overnite Objective: Vital Signs Temp Pulse Resp BP Pulse Ox 36.5 C 83 20 171/109 H 99 03/25/17 04:23 03/25/17 07:44 03/25/17 07:44 03/25/17 07:44 03/25/17 07:44 Laboratory Results 03/25/17 04:30 03/25/17 04:30 03/24/17 03/25/17 03/26/17 05:59 05:59 05:59 Intake Total 3350 2400 Output Total 600 1125 250 Balance 2750 1275 -250 PT 13.2 SEC (12.0-15.0) 03/19/17 05:30 INR 0.98 (0.83-1.16) 03/19/17 05:30 Physical Exam - Physical Exam General Appearance: WD/WN, alert, no apparent distress EENT: normal ENT inspection Neck: normal inspection Respiratory: lungs clear, normal breath sounds, No respiratory distress Cardiac/Chest: regular rate, rhythm, No diastolic murmur, No systolic murmur Abdomen: normal bowel sounds, non-tender Extremities: swelling ICD10 Worksheet Patient Problems: Problems Problem Status Onset Acute kidney failure with tubular necrosis Acute - ICD10 Problem Qualifiers (1) Acute kidney failure with tubular necrosis
--- NOTE | 2017-03-25 16:24 | ASDISCHSUM ---
Discharge Information Plan Status:Home with No Needs Medically Cleared to Leave:03/24/2017 Discharge Date:03/25/2017 01:30 PM CM D/C Disposition: ADT D/C Disposition:Home, Routine, Self-Care Projected Discharge Date:03/25/2017 12:00 AM Transportation at D/C: Discharge Delay Reason: Follow-Up Date:03/25/2017 12:00 AM Discharge Slot: Final Diagnosis:Acute kidney failure w/tubular necrosis Placement Information Patient Contact Information Contact Name:GAURI Relationship:Friend Address:[address] [place] [address] Work Phone: City:[place] Alternate Phone: State/Zip Code:[place] [address] Email: Financial Information Financial Class: Primary Plan Desc:[employer] [place] Primary Plan Number:[id number] Secondary Plan Desc: Secondary Plan Number: Assessment Information [facility] Initial CM Assessment Living Arrangements What is your living Answers: With Other (Not Family) arrangement? Who do you live with? Type Of Residence What kind of residence do Answers: Apartment you live in? Discharge Plan Comments Coordination Status Comments Notes: Patient is a 51yo single male admitted with severe metabolic acidosis, HHS, shock, acute hypoxic respiratory failure, hypothermia, hyponatremia, hyperkalemia. Patient was found down on the floor by his roommate who called 911. Patient's parents are Truong and Cathy Jamil ([phone]). Dr. Oropeza will call parents today to notify them patient is in the hospital and go over his current medical condition. Patient is listed as self pay - will notify Alicia. No therapies ordered at this time. CM will follow. Date Signed: 03/15/2017 11:30 AM Electronically Signed By:Katie Mcmullen LCSW [facility] CM Progress Note CM Note CM Note Notes: Patient continues on the vent, c-pap trials possible extubation today? Financial Services unable to check ins until patient off the vent.CM to follow for possible discharge needs. Date Signed: 03/18/2017 03:46 PM Electronically Signed By:Joann Chaudhari LCSW [facility] CM Progress Note CM Note CM Note Notes: Financial services notified patient is able to communicate now. Patient going for dialysis today. Overall improvement. No recommendations from PT yet. D/C needs TBD. CM will follow. Date Signed: 03/20/2017 02:12 PM Electronically Signed By:Katie Mcmullen LCSW [facility] CM Progress Note CM Note CM Note Notes: 03/22/2017 Case Management Note PT note on 03/21 states TBD if pt is safe for home d/c. PT was unable to assess pt on 03/22 d/t high blood sugars. Case Management d/c poc: TBD. Case Management will continue to follow pt progress with PT as d/c plan is created. Date Signed: 03/22/2017 02:34 PM Electronically Signed By:Tawnya Kim RN [facility] CM Progress Note CM Note CM Note Notes: Spoke w/RN, pt will get dialysis here on Saturday, dc needs unclear. Pt lives with a roomate, CM w/f for needs. Date Signed: 03/23/2017 05:01 PM Electronically Signed By:Trisha Lawton RN Case Management Discharge Plan Note Case Management Discharge Discharge Order Complete? Answers: Yes Followup Appointment 03/27/2017 12:30 PM Patient to Obtain Answers: Independently Medications Transportation Arranged Answers: Family/Friends Transport will Pick (Date 03/25/2017 12:00 AM & Time) EMTALA Complete Answers: No Case Management Transport Answers: Yes Form Complete Faxed Final Orders Answers: No Agency/Facility Transfer Answers: No Report Printed & Faxed to Receiving Agency Family Notified Answers: No Discharge Comments Notes: Pt is being discharged home today. CM spoke w/ Dr. Felix regarding d/c POC. Dr. Felix is having Nisha, RN teach pt to use the glucometer kit. CM scheduled pt a new PCP appointment. CM inputted pts appointment into [employer]. CM informed pt of the appointment. CM met w/ pt for dispo planning and informed him of the appointment. Pt reports that he will not have any needs. CM available for changes. Plan: Independent Date Signed: 03/25/2017 10:38 AM Electronically Signed By:IVANNA Stephen Intervention Information
--- NOTE | 2017-03-26 06:05 | GDS ---
[f rep st] DISCHARGE SUMMARY DISCHARGE DIAGNOSES: Include: 1. Acute severe acidosis secondary to diabetic ketoacidosis. 2. Acute hypoxic respiratory failure secondary to left lower lobe pneumonia. 3. Severe hypotension thought secondary to hypovolemic shock. 4. Acute pancreatitis. 5. Acute kidney injury secondary to acute tubular necrosis requiring CRRT and hemodialysis. 6. New diagnosis of diabetes. 7. Esophagitis, duodenitis per esophagogastroduodenoscopy. 8. Acute blood loss anemia. HISTORY OF PRESENT ILLNESS: A 51-year-old male with a history of untreated diabetes who presented on 03/15/2017. He was found down. For details of patient's initial presentation, please see the histo ry and physical dated 03/15/2017. CONSULTATIVE SERVICES: 1. General Surgery. 2. Pulmonary Critical Care. 3. Nephrology. 4. Gastroenterology. HOSPITAL COURSE BY ISSUE: 1. Hypovolemic shock. Patient presented severely dehydrated with systolic blood pressures in the 60 s. He was emergently triaged, had dialysis catheter placed and rapid rehydration with normal saline before initiation of hemodialysis. Patient required pressors for a short period of time before re-es tablishing hemodynamic stability. On the day of disposition, the patient's blood pressures are stabl e and normal in the 140s to 170s. He has been initiated on low-dose oral antihypertensives which he will continue post disposition. 2. Acute kidney injury secondary to ATN from hypovolemia. Patient was initially started on CRRT sec ondary to his hypotension and then transitioned to hemodialysis. On the day of disposition, the pedro ent's renal function has improved without hemodialysis, creatinine down from 4.5 to 4.0 without inter vention. Patient is being discharged without his hemodialysis catheter to have labs checked twice a week and call to Dr. Helton's office. He will be seen in the [facility] in 2 weeks' time. There i s an expectation he will have full recovery of his renal function. He has been educated to drink flu ids freely as we expect the post ATN diuresis to continue. 3. Diabetic ketoacidosis. Patient presented with a severe acidosis, was initiated on DKA protocol. On the day of disposition, patient's anion gap is normal and he has been initiated on long-term outp atient insulin therapy. 4. New diagnosis diabetes. Patient's hemoglobin A1c of presentation was 13.9. He has had marked im provement in his glycemic control in the 24 hours prior to disposition. Blood sugars ranged between 88 in 309. We are discharging the patient on Lantus twice a day without additional short-acting insu alpesh at this time. He has been provided a glucometer kit and has been instructed to measure blood sug ars twice a day so that he can present to his new primary care clinic with measurements from morning afternoon and evening allowing his outpatient provider to additionally titrate insulin therapy as nee ded. 5. Hypertension. This is being treated in the setting of acute kidney injury with transient hemodia lysis. Patient was initiated on low-dose amlodipine 5 mg which will continue at disposition. He kev l be followed in the outpatient setting by Nephrology. 6. Acute blood loss anemia secondary to GI losses. Patient was seen by Gastroenterology. EGD confi rmed esophagitis and duodenitis. Patient was initiated on b.i.d. proton pump inhibitor which will co ntinue for 8 weeks post disposition. He will follow in the outpatient setting with Gastroenterology. MEDICATIONS AT THE TIME OF DISPOSITION: Please reference med rec printed on 03/25/2017. PENDING STUDIES: At the time of this dictation are none. FOLLOWUP APPOINTMENTS: For this patient include: 1. With Nephrology. 2. With Dr. Chavez, his new primary care provider organized by case management. His appointment is on 03/27/2017, as well as with Gastroenterology in the next 2-4 months post disposition. 3. Patient is being established with home health for the next week to assist in his first 7-10 days post discharge treatment of new diagnosis diabetes. I spent greater than 30 minutes in the planning and coordination of this discharge. /[id number]/MODL
== END 2017-03-25 13:30 | disposition home or self-care (01) | DRG 637 ==
LOC: EDUNIT# → F2N 02:17 → F3E 03-21 13:53
PROVIDERS: ADMIT Family Medicine; ATTEND Hospitalist
PROC: 0BH18EZ Insertion of Endotracheal Airway into Trachea, Via Natural or Artificial Opening Endoscopic (ICD-10-PCS; principal; 2017-03-15)
PROC: 05H533Z Insertion of Infusion Device into Right Subclavian Vein, Percutaneous Approach (ICD-10-PCS; principal; 2017-03-15)
PROC: 5A09457 Assistance with Respiratory Ventilation, 24-96 Consecutive Hours, Continuous Positive Airway Pressure (ICD-10-PCS; principal; 2017-03-15)
PROC: 06HN33Z Insertion of Infusion Device into Left Femoral Vein, Percutaneous Approach (ICD-10-PCS; 2017-03-15)
PROC: 06HM33Z Insertion of Infusion Device into Right Femoral Vein, Percutaneous Approach (ICD-10-PCS; 2017-03-15)
PROC: 30233N1 Transfusion of Nonautologous Red Blood Cells into Peripheral Vein, Percutaneous Approach (ICD-10-PCS; 2017-03-19)
PROC: 02HV33Z Insertion of Infusion Device into Superior Vena Cava, Percutaneous Approach (ICD-10-PCS; 2017-03-20)
PROC: 0DB98ZX Excision of Duodenum, Via Natural or Artificial Opening Endoscopic, Diagnostic (ICD-10-PCS; 2017-03-20)
PROC: 0DB38ZX Excision of Lower Esophagus, Via Natural or Artificial Opening Endoscopic, Diagnostic (ICD-10-PCS; 2017-03-20)
PROC: 0DB68ZX Excision of Stomach, Via Natural or Artificial Opening Endoscopic, Diagnostic (ICD-10-PCS; 2017-03-20)
PROC: 5A1D70Z Performance of Urinary Filtration, Intermittent, Less than 6 Hours Per Day (ICD-10-PCS; 2017-03-23)
DX: E11.10 Type 2 diabetes mellitus with ketoacidosis without coma (principal); J18.9 Pneumonia, unspecified organism; J96.01 Acute respiratory failure with hypoxia; R57.1 Hypovolemic shock; N17.0 Acute kidney failure with tubular necrosis; K85.90 Acute pancreatitis without necrosis or infection, unspecified; D62 Acute posthemorrhagic anemia; M62.82 Rhabdomyolysis; E87.0 Hyperosmolality and hypernatremia; R65.11 Systemic inflammatory response syndrome (SIRS) of non-infectious origin with acute organ dysfunction; K29.71 Gastritis, unspecified, with bleeding; K29.81 Duodenitis with bleeding; I95.89 Other hypotension; R41.82 Altered mental status, unspecified; K20.9 Esophagitis, unspecified; M54.5 Low back pain; R68.0 Hypothermia, not associated with low environmental temperature; E87.5 Hyperkalemia; E78.5 Hyperlipidemia, unspecified; F10.21 Alcohol dependence, in remission; E66.9 Obesity, unspecified; Z68.32 Body mass index [BMI] 32.0-32.9, adult; F17.220 Nicotine dependence, chewing tobacco, uncomplicated
CPT/HCPCS: 80305; 82693-90; 82941-90; 82947-QW; 84600-90; 86022-90; 86705-90; 97116-GP; 97161-GP; 97165-GO; 97535-GO; C1750; C1751; G0472; G0480; J0171; J0610; J1335; J1644; J1815; J2250; J2310; J2370; J2405; J2704; J2997; J3010; J3370; P9016; P9047